=== PATIENT | female | born 1955 | race Caucasian/White ===

== ENCOUNTER 2021-05-26 10:03 | Inpatient (IN) | payer OTHER, SELFPAY ==
[2021-05-26] VITALS (14 sets, daily range): BP systolic 108–168; BP diastolic 47–76; PULSE 80–93; RESP 14–20; TEMP 36.5–37.2; O2SAT 96–100; BMI 34.9
--- NOTE | ~2021-05-26 | US_ITS ---
EXAMINATION: US paracentesis abd w/image DATE: 05/28/2021 13:49 INDICATION: Ascites. TECHNIQUE: The procedure and its risks and benefits were discussed with the patient. Potential risks discussed included bleeding and infection. The skin was prepped and draped in sterile fashion. 1% lid ocaine was used for local anesthesia. Under ultrasound guidance, a 5 Fr catheter with trochar was adv anced into the ascites in the left lower quadrant. Fluid was aspirated into vacuum bottles. The gaudencio ter was removed, and a dressing was applied. There were no immediate complications. FINDINGS: Ultrasound images demonstrate ascites and the catheter within the fluid. IMPRESSION: 1. Successful ultrasound-guided paracentesis yielding 4250 mL of clear yellow fluid. Reviewed, dictated and finalized at location A. D PROTECTIVE SERVICES SOCIAL WORKER
--- NOTE | ~2021-05-26 | US_ITS ---
EXAMINATION: US renal BI DATE: 05/27/2021 08:30 INDICATION: Renal insufficiency. TECHNIQUE: Multiple ultrasound grayscale images of the kidneys were obtained. COMPARISON: None. FINDINGS: The right kidney measures 12.2 x 5.6 x 5.9 cm. The left kidney measures 12.4 x 5.1 x 5.2 cm. The kidn eys demonstrate normal parenchymal echogenicity. There is no hydronephrosis. The bladder is normal. T he liver demonstrates a nodular surface contour, consistent with cirrhosis. There is a large volume o f ascites. IMPRESSION: 1. Normal kidney sizes. No hydronephrosis. 2. Cirrhosis of the liver. 3. Large volume of ascites. Reviewed, dictated and finalized at location B. RATORY SPECIALIST
--- NOTE | ~2021-05-26 | CT_ITS ---
EXAMINATION: CT abdomen w con DATE: 05/27/2021 13:27 INDICATION: Cirrhosis of the liver. TECHNIQUE: Computed tomography (CT) of the abdomen was performed with 100 mL Omnipaque 350 intravenou s contrast. Automated exposure control and iterative reconstruction technique were employed. The dose -length product was 774.81 mGy-cm. COMPARISON: Ultrasound kidneys 05/27/2021 FINDINGS: The visualized portions of the lung bases demonstrate minimal atelectasis. No pleural effus ion. The heart size is normal. There are coronary artery calcifications. No pericardial effusion. The re is a small sliding hiatal hernia. The liver demonstrates a nodular surface contour, consistent wit h cirrhosis. There are changes of cholecystectomy. There is splenomegaly measuring 18.5 cm. The pancr eas and adrenal glands are normal. There is cortical thinning of the kidneys. There are cysts in the kidneys measuring up to 3.2 cm on the right. There is a 3 mm stone in left kidney. There are no dilat ed loops of bowel. The appendix is normal. There is a large volume of ascites. There is mild periport al lymphadenopathy, likely reactive. There is mild thoracolumbar spondylosis. IMPRESSION: 1. Cirrhosis of the liver with portal venous hypertension. 2. Large volume of ascites. 3. Small sliding hiatal hernia. Reviewed, dictated and finalized at location D. OGRAPH OPERATOR
--- NOTE | 2021-05-26 10:18 | ED.GIBLEED ---
HPI - GI Bleed General Chief complaint: GI Bleed Stated complaint: dark stools, abnormal labs Time Seen by Provider: 05/26/21 10:13 Source: patient Mode of arrival: ambulatory Limitations: no limitations History of Present Illness HPI Narrative: Patient is a 66-year-old female complaining of dark tarry stools for the past 3 weeks, accompanied by lower abdominal discomfort, was seen by her PCP yesterday, had labs drawn and today she was informed by to go to the emergency room since her hemoglobin was 6 . Related Data Home Medications Medication Instructions Recorded Confirmed aspirin 81 mg tablet,delayed 81 mg PO DAILY 04/01/21 04/01/21 release atorvastatin 40 mg tablet 40 mg PO DAILY 04/01/21 04/01/21 losartan 100 mg tablet 100 mg PO DAILY 04/01/21 04/01/21 metformin 1,000 mg tablet 1,000 mg PO BID 04/01/21 04/01/21 montelukast 10 mg tablet 10 mg PO QHS 04/01/21 04/01/21 Allergies Allergy/AdvReac Type Severity Reaction Status Date / Time No Known Allergies Allergy Verified 05/25/21 15:32 Review of Systems Review of Systems: All systems reviewed & are unremarkable except as noted in HPI and below Constitutional: Constitutional: Denies body ache(s), Denies chills, Denies excessive sweating, Denies fatigue, Denies fever(s), Denies headache(s), Denies lethargy, Denies malaise, Denies weakness and Denies weight loss Eyes: Eyes: Denies blurry vision, Denies change in vision and Denies loss of vision ENT: Denies dizziness, Denies ear discharge, Denies headache(s), Denies lip swelling, Denies epistaxis, Denies nasal congestion, Denies neck pain, Denies throat swelling and Denies tongue swelling Cardiovascular: Cardiovascular: Denies chest pain, Denies chest pain at rest, Denies chest pain with activity, Denies diaphoresis, Denies rapid heart rate, Denies edema, Denies irregular heart rhythm, Denies lightheadedness, Denies palpitations, Denies dyspnea and Denies dyspnea on exertion Respiratory: Respiratory: Denies chest congestion, Denies cough, Denies hemoptysis, Denies dyspnea and Denies dyspnea on exertion Gastrointestinal: Gastrointestinal: Denies diarrhea, Denies nausea, Denies vomiting and Denies hematemesis Musculoskeletal: Musculoskeletal: Denies abnormal gait, Denies deformity, Denies joint swelling, Denies limited range of motion, Denies neck pain and Denies numbness Neurologic: Denies Abnormal speech present, Denies abnormal gait, Denies confusion, Denies dizziness, Denies headache(s), Denies focal weakness, Denies loss of vision, Denies numbness, Denies Other visual disturbances, Denies Sensory deficit (Neuro) and Denies weakness Psychiatric: Psychiatric: Denies confusion, Denies depression, Denies auditory hallucinations, Denies homicidal ideation and Denies suicidal ideation Endocrine: Endocrine: Denies cold intolerance, Denies excessive sweating, Denies fatigue, Denies heat intolerance and Denies palpitations Hematologic/Lymphatic: Hematologic/Lymphatic: Denies easy bleeding and Denies easy bruising Allergic/Immunologic: Allergic/Immunologic: Denies lip swelling, Denies throat swelling and Denies tongue swelling PMFSH Past Medical History Medical History Allergies Arthritis CAD (coronary artery disease) delivery delivered COPD (chronic obstructive pulmonary disease) Hypertension [place] (myocardial infarction) Osteoarthritis Type 2 diabetes mellitus Surgical History Surgical History H/O: hysterectomy History of carpal tunnel release History of cholecystectomy Family History Family History Father Hypertension Mother Cancer Hypertension Heart disease Sibling Hypertension Heart disease Grandparent Heart disease Social History Social History Smoking status: Former
[2021-05-26 10:34] LABS: Basophils Absolute Auto 0.1 K/mm3 (0.0-0.1); Eosinophils Absolute Auto 0.2 K/mm3 (0-0.3); Eosinophils Percent Auto 3.5 % (0-4.4); Hematocrit 23.6 % (37.0-47.0); Immature Granulocyte Absolute 0.01 K/mm3 (0.00-0.031); Immature Granulocyte Percent A 0.2 % (0-0.5); Immature Platelet Fraction Pct 9.3 % (0.9-11.2); Lymphocytes Absolute Auto 0.75 K/mm3 (0.9-3.2); Lymphocytes Percent Auto 12.5 % (18.3-44.2); Mean Corpuscular HGB Conc 25.4 g/dl (32-36); Mean Corpuscular Hemoglobin 19.4 pg (26-34); Mean Corpuscular Volume 76.4 fl (80-100); Monocytes Absolute Auto 0.6 K/mm3 (0.1-0.6); Monocytes Percent Auto 10.4 % (2.6-8.5); Neutrophils Absolute Auto 4.3 K/mm3 (1.3-6.7); Neutrophils Percent Auto 72.4 % (45.5-73.1); Platelet Count Result 157 k/mm3 (150-375); Red Blood Count 3.09 M/mm3 (4.2-5.4); Red Cell Distribution Width 19.1 % (11.5-14.5)
[2021-05-26] MEDS: PANTOPRAZOLE SODIUM IV 40 MG VIAL 80 MG IV PUSH (10:34)
[2021-05-26] MEDS: LACTATED RINGERS 1,000 ML 999 ML IV CONT (10:34)
[2021-05-26 10:41] LABS: INR 1.1; Prothrombin Time 14.4 Seconds (11.1-14.7)
[2021-05-26 10:42] LABS: Partial Thromboplastin Time 37.2 SECONDS (22.3-36.8)
[2021-05-26 10:47] LABS: Alanine Aminotransferase 22 U/L (4-35); Albumin Level 3.6 g/dL (3.5-5.1); Alkaline Phosphatase 88 U/L (38-126); Anion Gap 11 mmol/L (8-16); Aspartate Amino Transferase 42 U/L (14-36); Bilirubin,Total 1.1 mg/dL (0.2-1.3); Blood Urea Nitrogen 19 mg/dL (7-17); Calcium 8.8 mg/dL (8.4-10.2); Carbon Dioxide 20 mmol/L (22-30); Chloride 107 mmol/L (98-107); Estimated CRCL calculation 50 ml/min; Estimated Glomerular Filt Rate 50; Glucose 187 mg/dL (65-110); Potassium 4.5 mmol/L (3.4-5.0); Sodium 138 mmol/L (137-145)
[2021-05-26 10:53] LABS: Hypochromasia 2+ (NORMAL); Ovalocytes 2+ (NORMAL); Platelet Estimate Adequate (Adequate); Stomatocytes 2+ (NORMAL); Tear Drop Cells 2+ (NORMAL)
[2021-05-26] MEDS: SODIUM CHLORIDE 0.9% IV 250 ML 30 ML IV CONT ×2 (12:16→17:44)
[2021-05-26] MEDS: TUBING, BLOOD PLUM PUMP TUBING 1 EACH XX ×2 (13:05→17:40)
--- NOTE | 2021-05-26 14:50 | PM.IMHP ---
H&P: HPI History of Present Illness Date/Time: 05/26/21 14:50 Chief Complaint: Low hemoglobin. Narrative: This is a 66-year-old female with GERD, COPD, coronary artery disease, hypertension, hyperlipidemia, and insulin-dependent diabetes who presented to the emergency department earlier today at the direction of her primary care provider after she was found to have a low hemoglobin on labs drawn yesterday. She was seen by her primary care provider yesterday for evaluation of abdominal bloating, epigastric discomfort, belching, and dark tarry stools that has been going on for at least 3 weeks. In the emergency department she was found to have a hemoglobin and hematocrit of 6.0 in 23.6% respectively and her stool was Hemoccult positive. She has never had similar symptoms and she denies history of gastritis, esophagitis, reflux, and ulcers although she is on pantoprazole daily. She had been on dual anti-platelet therapy for approximately 6 years following PCI with stent although clopidogrel was recently stopped at her last office visit in March. If she needs to take anything for aches or pains it is typically Tylenol, she avoids NSAIDs. She denies syncope, near syncope, shortness of breath, weakness, and palpitations. Review of Systems Review of Systems: Twelve systems were reviewed and are negative except for as per HPI. [facility] Past Medical History Medical History (Updated 05/26/21 @ 23:35 by Jo Estrella PA-C) Allergies Arthritis Chronic obstructive pulmonary disease Coronary artery disease Dyslipidemia Hypertension Insulin dependent type 2 diabetes mellitus Hemoglobin A1c was 7.2% on 04/01/2021. Osteoarthritis Surgical History Surgical History (Updated 05/26/21 @ 15:01 by Jo Estrella PA-C) History of cardiac catheterization Status post PCI and stent. History of carpal tunnel release History of section History of cholecystectomy History of hysterectomy Family History Family History Father Hypertension Mother Cancer Hypertension Heart disease Sibling Hypertension Heart disease Grandparent Heart disease Social History Social History (Updated 05/26/21 @ 15:02 by Jo Estrella PA-C) Social History: Surrogate decision maker: Raman Ramesh (son) or Latha Javier (daughter). Code status: Full code. Smoking packs per day: 1 Smoking cigarettes per day: 20.0 Years smoked: 40 Smoking pack-years: 40.00 Smoking status: Former smoker Tobacco type: cigarettes Second hand tobacco smoke exposure: Yes Smoking end date: 05/26/05 Alcohol intake: former Alcohol use details: Drinks perhaps a couple of glasses of wine a month. Substance use: never Additional living arrangements comments: The patient lives in [place]. Additional occupation/education comments: Retired. Spiritual care concerns: No Meds Home Medications and Allergies Home Medications Medication Instructions Recorded Confirmed Type aspirin 81 mg tablet,delayed 81 mg PO DAILY 04/01/21 05/26/21 History release atorvastatin 40 mg tablet 40 mg PO DAILY 04/01/21 05/26/21 History losartan 100 mg tablet 100 mg PO DAILY 04/01/21 05/26/21 History metformin 1,000 mg tablet 1,000 mg PO BID 04/01/21 05/26/21 History montelukast 10 mg tablet 10 mg PO QHS 04/01/21 05/26/21 History insulin NPH isoph U-100 human 100 See Rx Instructions SUBCUT BID #15 04/02/21 05/26/21 Rx unit/mL (3 mL) subcutaneous pen ml oxybutynin chloride 10 mg 10 mg PO DAILY #90 tablet 04/02/21 05/26/21 Rx tablet,extended release 24 hr metoprolol succinate 25 mg 25 mg PO DAILY #90 tablet 04/20/21 05/26/21 Rx tablet,extended release 24 hr pen needle, diabetic 29 gauge x #100 ea 04/20/21 Rx 1/2 fluticasone 250 mcg-salmeterol 50 1 inh INHALATION BID #60 ea 05/25/21 05/26/21 Rx mcg/dose blistr powdr for inhalation pantoprazole 40 mg tablet,delayed
--- NOTE | 2021-05-26 17:25 | PC.NURSE ---
This patient, Ammy Ramesh, was admitted to [facility] Surg Room 330-01 at 1700. Patient/family oriented to hospital policies and general routines including ID bracelet, bed and alarms, visiting hours, pain management, procedures, bathroom and other care routines, personal items, smoking policy, room service/diet, and visiting hours. Information on how to activate the Rapid Response Team has been discussed. Patient/Family are encouraged to report perceived risks to care and to ask questions if they do not understand what they are told or what they should do.
[2021-05-26] MEDS: LACTATED RINGERS 1,000 ML 125 ML IV CONT (21:00)
[2021-05-26] MEDS: PANTOPRAZOLE SODIUM IV 40 MG VIAL IV PUSH (21:04)
[2021-05-26 21:43] LABS: Glucose Point of Care 145 mg/dl (65-105)
[2021-05-26 22:02] LABS: Hemoglobin 6.9 g/dL (12.0-15.0)
[2021-05-26 22:03] LABS: Hematocrit 24.6 % (37.0-47.0)
[2021-05-27] VITALS (26 sets, daily range): BP systolic 134–170; BP diastolic 58–83; PULSE 78–98; RESP 17–29; TEMP 35.9–37.8; O2SAT 96–100
[2021-05-27 01:10] LABS: Glucose Point of Care 105 mg/dl (65-105)
[2021-05-27] MEDS: METOPROLOL SUCCINATE EXT REL 25 MG TABCR PO ×2 (04:46→21:30)
[2021-05-27] MEDS: MONTELUKAST SODIUM 10 MG TABLET PO ×2 (04:56→21:31)
[2021-05-27 07:39] LABS: Basophils Percent Auto 0.9 % (0.2-1.2); Eosinophils Absolute Auto 0.2 K/mm3 (0-0.3); Eosinophils Percent Auto 3.7 % (0-4.4); Hematocrit 28.7 % (37.0-47.0); Hemoglobin 8.5 g/dL (12.0-15.0); Immature Granulocyte Absolute 0.01 K/mm3 (0.00-0.031); Immature Granulocyte Percent A 0.2 % (0-0.5); Immature Platelet Fraction Pct 8.8 % (0.9-11.2); Lymphocytes Absolute Auto 0.69 K/mm3 (0.9-3.2); Lymphocytes Percent Auto 14.9 % (18.3-44.2); Mean Corpuscular HGB Conc 29.6 g/dl (32-36); Mean Corpuscular Hemoglobin 23.7 pg (26-34); Mean Corpuscular Volume 79.9 fl (80-100); Mean Platelet Volume 11.9 fl (7.4-10.4); Monocytes Absolute Auto 0.5 K/mm3 (0.1-0.6); Monocytes Percent Auto 11.7 % (2.6-8.5); Neutrophils Absolute Auto 3.2 K/mm3 (1.3-6.7); Neutrophils Percent Auto 68.6 % (45.5-73.1); Platelet Count Result 103 k/mm3 (150-375); Red Blood Count 3.59 M/mm3 (4.2-5.4); Red Cell Distribution Width 20.1 % (11.5-14.5); White Blood Count 4.6 K/mm3 (4.5-10.0)
[2021-05-27 07:51] LABS: Alanine Aminotransferase 19 U/L (4-35); Albumin Level 3.1 g/dL (3.5-5.1); Alkaline Phosphatase 75 U/L (38-126); Anion Gap 8 mmol/L (8-16); Aspartate Amino Transferase 32 U/L (14-36); Bilirubin,Total 2.7 mg/dL (0.2-1.3); Blood Urea Nitrogen 16 mg/dL (7-17); Calcium 8.4 mg/dL (8.4-10.2); Carbon Dioxide 22 mmol/L (22-30); Chloride 107 mmol/L (98-107); Estimated CRCL calculation 55 ml/min; Estimated Glomerular Filt Rate 56; Glucose 116 mg/dL (65-110); Magnesium 1.1 mg/dL (1.6-2.3); Potassium 3.9 mmol/L (3.4-5.0); Sodium 137 mmol/L (137-145)
[2021-05-27 08:38] LABS: Hypochromasia 1+ (NORMAL)
[2021-05-27 08:39] LABS: Anisocytosis 2+ (NORMAL); Ovalocytes 1+ (NORMAL)
[2021-05-27 08:41] LABS: Stomatocytes 1+ (NORMAL)
[2021-05-27] MEDS: PANTOPRAZOLE SODIUM IV 40 MG VIAL IV PUSH (08:45)
--- NOTE | 2021-05-27 10:36 | PM.IMPN ---
Progress Note: A&P Assessment and Plan (1) GI bleed: Code(s): K92.2 - Gastrointestinal hemorrhage, unspecified Status: Acute Assessment and Plan: Presumed upper GI bleed given her symptoms and melena. She has been started on Protonix [address] Davis has been consulted. Endoscopic scheduled for today. (2) Profound anemia: Code(s): D64.9 - Anemia, unspecified Status: Acute Assessment and Plan: Transfuse to a stable hemoglobin. Hold aspirin. (3) Coronary artery disease: Code(s): I25.10 - Atherosclerotic heart disease of [place] coronary artery without angina pectoris Status: Acute Assessment and Plan: No acute issues. She had stents placed approximately 6 years ago and was recently taken off of Plavix. (4) Hypertension: Qualifiers: Hypertension type: primary hypertension Qualified Code(s): I10 - Essential (primary) hypertension Code(s): I10 - Essential (primary) hypertension Status: Acute Assessment and Plan: Blood pressures were reviewed and they are stable. Antihypertensives will be reviewed and resumed as appropriate. (5) Insulin dependent type 2 diabetes mellitus: Code(s): E11.9 - Type 2 diabetes mellitus without complications; Z79.4 - intermediate teacher (current) use of insulin Status: Acute Assessment and Plan: Hold insulin tonight in anticipation of endoscopy tomorrow. Initiate sliding scale insulin, Accu-Cheks, and hypoglycemic protocol. (6) Renal insufficiency: Code(s): N28.9 - Disorder of kidney and ureter, unspecified Status: Acute Assessment and Plan: I suspect this is likely due to hypovolemia from her severe anemia though she has risk factors for kidney disease thus will obtain a renal ultrasound. Avoid nephrotoxic agents. Subjective Date/time seen: 05/27/21 10:36 Patient was seen during the morning rounds today. Patient received blood and hemoglobin stable. Denies any shortness of breath or chest pain. No abdominal pain, nausea, no vomiting. Mood stable Review of Systems Review of Systems: All systems reviewed & are unremarkable except as noted in HPI and below (the history and physical examination.) Exam Narrative: General: Well-developed female lying on her left side in bed in no distress. Weight: 80.3 kg. BMI: 34.9. HEENT: PERRL, EOMI. Sclerae anicteric. Oral mucosa moist. Oropharynx clear. Neck: Supple. Respiratory: Lungs are clear to auscultation bilaterally. Cardiovascular: Regular rate and rhythm with S1-S2. No murmur, rub, or gallop. Gastrointestinal: Abdomen is distended with positive bowel sounds. She is somewhat tender to palpation throughout the abdomen. No voluntary guarding or rebound tenderness. Skin: Warm and dry. Generalized pallor. Extremities: No cyanosis, clubbing, or edema. Radial and pedal pulses intact. Neurological: Alert. Cranial nerves 2-12 are grossly intact. No gross focal deficits to casual conversation. Psychiatric: Pleasant and cooperative with normal mood and affect. Judgment and insight intact. Objective Data Vital Signs Vital Signs: Vital Signs - 24 hr 05/26/21 12:27 05/26/21 12:44 05/26/21 13:44 Temperature 36.7 C 36.7 C 36.6 C Pulse Rate 87 83 88 Respiratory Rate 17 14 16 Blood Pressure 133/71 123/76 118/66 Pulse Oximetry 100 99 100 05/26/21 14:19 05/26/21 14:44 05/26/21 16:49 Temperature 36.5 C Pulse Rate 85 89 80 Respiratory Rate 14 18 16 Blood Pressure 139/64 123/61 136/66 Pulse Oximetry 99 98 99 05/26/21 17:30 05/26/21 17:51 05/26/21 18:08 Temperature 36.7 C 36.6 C 36.5 C Pulse Rate 87 93 92 Respiratory Rate 20 20 20 Blood Pressure 144/64 H 123/57 L 141/62 H Pulse Oximetry 99 99 98 05/26/21 19:08 05/26/21 20:08 05/26/21 20:30 Temperature 36.6 C 37.2 C 37.0 C Pulse Rate 88 86 82 Respiratory Rate 20 20 20 Blood Pressure 130/61 109/47 L 108/47 L Pulse Oximetry 98 97 96
--- NOTE | 2021-05-27 10:57 | WPDANESEPPF ---
Anes - Initial Pre Proc Eval Procedure: Operation Date: 05/27/21 13:30 Proposed Procedures p Esophagogastroduodenoscopy - Emile Davis MD Date/Time: 05/27/21 10:57 Surgeon: Hans Jo MD Pre Op Diagnosis: Upper GI bleed Patient Data Age: 66 Gender: F Height: 1.63 m Weight: 92.2 kg Last Vital Signs Temp 37.3 C 05/27/21 07:30 Pulse 79 05/27/21 07:30 Resp 18 05/27/21 07:30 BP 157/72 H 05/27/21 07:30 Pulse Ox 97 05/27/21 07:30 Allergies Allergy/AdvReac Type Severity Reaction Status Date / Time No Known Allergies Allergy Verified 05/25/21 15:32 Home Medications Medication Instructions Recorded Confirmed Type aspirin 81 mg tablet,delayed 81 mg PO DAILY 04/01/21 05/26/21 History release atorvastatin 40 mg tablet 40 mg PO DAILY 04/01/21 05/26/21 History losartan 100 mg tablet 100 mg PO DAILY 04/01/21 05/26/21 History metformin 1,000 mg tablet 1,000 mg PO BID 04/01/21 05/26/21 History montelukast 10 mg tablet 10 mg PO QHS 04/01/21 05/26/21 History insulin NPH isoph U-100 human 100 See Rx Instructions SUBCUT BID #15 04/02/21 05/26/21 Rx unit/mL (3 mL) subcutaneous pen ml oxybutynin chloride 10 mg 10 mg PO DAILY #90 tablet 04/02/21 05/26/21 Rx tablet,extended release 24 hr metoprolol succinate 25 mg 25 mg PO DAILY #90 tablet 04/20/21 05/26/21 Rx tablet,extended release 24 hr pen needle, diabetic 29 gauge x #100 ea 04/20/21 Rx 1/2 fluticasone 250 mcg-salmeterol 50 1 inh INHALATION BID #60 ea 05/25/21 05/26/21 Rx mcg/dose blistr powdr for inhalation pantoprazole 40 mg tablet,delayed 40 mg PO QAM #30 tablet 05/25/21 05/26/21 Rx release zolpidem 10 mg tablet 10 mg PO .COMPLEX PRN #15 tablet 05/25/21 05/26/21 Rx Laboratory Tests 05/26/21 05/26/21 05/26/21 10:23 18:09 21:31 WBC RBC Hgb 6.9 g/dL L* g/dL (12.0-15.0) Hct 24.6 % L % (37.0-47.0) MCV MCH MCHC RDW Plt Count MPV Immature Gran % (Auto) Neut % (Auto) Lymph % (Auto) [place] % (Auto) Eos % (Auto) Baso % (Auto) Lymph # (Auto) [place] # (Auto) Eos # (Auto) Baso # (Auto) Abs Immat Gran (auto) Absolute Neuts (auto) Absolute Nucleated RBC Nucleated RBC % Platelet Estimate % Immature Plt Fraction Hypochromasia Anisocytosis Ovalocytes Stomatocytes Sodium Potassium Chloride Carbon Dioxide Anion Gap BUN Creatinine Estim Creat Clear Calc Estimated GFR Glucose POC Capillary Glucose 145 mg/dl H mg/dl (65-105) Calcium Magnesium Total Bilirubin AST ALT Alkaline Phosphatase Total Protein Albumin Blood Type A Positive Antibody Screen Negative Crossmatch See Detail 05/27/21 05/27/21 05/27/21 00:58 07:10 07:10 WBC 4.6 K/mm3 K/mm3 (4.5-10.0) RBC 3.59 M/mm3 L M/mm3 (4.2-5.4) Hgb 8.5 g/dL L g/dL (12.0-15.0) Hct 28.7 % L % (37.0-47.0) MCV 79.9 fl L fl (80-100) MCH 23.7 pg L D pg (26-34) MCHC 29.6 g/dl L g/dl (32-36) RDW 20.1 % H % (11.5-14.5) Plt Count 103 k/mm3 L k/mm3 (150-375) MPV 11.9 fl H fl (7.4-10.4) Immature Gran % (Auto) 0.2 % % (0-0.5) Neut % (Auto) 68.6 % % (45.5-73.1) Lymph % (Auto) 14.9 % L % (18.3-44.2) [place] % (Auto) 11.7 % H % (2.6-8.5) Eos % (Auto) 3.7 % % (0-4.4) Baso % (Auto) 0.9 % %
[2021-05-27] MEDS: LACTATED RINGERS 1,000 ML 150 ML IV CONT (10:58)
[2021-05-27 11:03] LABS: Glucose Point of Care 113 mg/dl (65-105)
--- NOTE | 2021-05-27 11:41 | PCRCNOTE ---
Window of time for administration has passed. See next scheduled administration.
--- NOTE | 2021-05-27 11:42 | WPDGICN ---
Assessment and Plan Assessment and plan (1) Epigastric abdominal pain: Code(s): R10.13 - Epigastric pain Status: Acute Assessment and Plan: Patient with several week history of epigastric pain. This along with occult blood in stool and anemia suggest upper GI blood loss. Plan is for EGD today. Ppi therapy will be implemented. (2) Melena: Code(s): K92.1 - Melena Status: Acute Assessment and Plan: Patient found to have heme-positive dark melenic stool. Suggestive of upper GI blood loss. He had EGD will be planned initially. Colonoscopy only if no findings on EGD. (3) Insulin dependent type 2 diabetes mellitus: Code(s): E11.9 - Type 2 diabetes mellitus without complications; Z79.4 - intermediate (current) use of insulin Status: Acute (4) Profound anemia: Code(s): D64.9 - Anemia, unspecified Status: Acute Assessment and Plan: Significant anemia with a hemoglobin 6-6.5. Suggestive of GI blood loss anemia given her black melenic stools that is occult blood positive. Ppi therapy for now. Transfuse to a stable hemoglobin. Monitor hemoglobin till stable. GI Consult Note Consult date/time: 05/27/21 11:42 HPI: Ammy Ramesh is a 66 year old female Presents to the ER because of anemia. Patient initially had vague abdominal pain. She has noticed black stools for 3 weeks. Yesterday presented to primary care office and CBC was obtained. She was found to have rather profound anemia and sent to the ER. In ER hemoglobin was noted to be significantly decline. In the range of 6-6 and half. Patient states she has rather vague upper abdominal discomfort. This been present for at least several weeks and dark melenic stools noted for several weeks as well. I have been consulted for possible GI blood loss. Review of Systems Review of Systems: All systems reviewed & are unremarkable except as noted in HPI and below PMFSH Past Medical History Medical History (Updated 05/27/21 @ 11:44 by Emile Davis MD) Allergies Arthritis Chronic obstructive pulmonary disease Coronary artery disease Dyslipidemia Hypertension Insulin dependent type 2 diabetes mellitus Hemoglobin A1c was 7.2% on 04/01/2021. Osteoarthritis Surgical History Surgical History (Updated 05/26/21 @ 15:01 by Jo G. Gerling, PA-C) History of cardiac catheterization Status post PCI and stent. History of carpal tunnel release History of section History of cholecystectomy History of hysterectomy Family History Family History Father Hypertension Mother Cancer Hypertension Heart disease Sibling Hypertension Heart disease Grandparent Heart disease Social History Social History (Updated 05/26/21 @ 15:02 by Jo Estrella PA-C) Social History: Surrogate decision maker: Raman Leonradha (son) or Latha Javier (daughter). Code status: Full code. Smoking packs per day: 1 Smoking cigarettes per day: 20.0 Years smoked: 40 Smoking pack-years: 40.00 Smoking status: Former smoker Tobacco type: cigarettes Second hand tobacco smoke exposure: Yes Smoking end date: 05/26/05 Alcohol intake: former Alcohol use details: Drinks perhaps a couple of glasses of wine a month. Substance use: never Additional living arrangements comments: The patient lives in [place]. Additional occupation/education comments: Retired. Spiritual care concerns: No Meds Home Medications and Allergies Home Medications Medication Instructions Recorded Confirmed Type aspirin 81 mg tablet,delayed 81 mg PO DAILY 04/01/21 05/26/21 History release atorvastatin 40 mg tablet 40 mg PO DAILY 04/01/21 05/26/21 History losartan 100 mg tablet 100 mg PO DAILY 04/01/21 05/26/21 History metformin 1,000 mg tablet 1,000 mg PO BID 04/01/21 05/26/21 History montelukast 10 mg tablet 10 mg PO QHS 04/01/21
[2021-05-27 13:15] LABS: Glucose Point of Care 108 mg/dl (65-105)
[2021-05-27] MEDS: ATORVASTATIN 40 MG TABLET PO (13:37)
[2021-05-27] MEDS: ACETAMINOPHEN 325 MG TABLET 650 MG PO ×2 (14:45→21:34)
[2021-05-27 15:31] LABS: Bilirubin Indirect 3.3 mg/dL (0-1.1); Bilirubin,Total 3.6 mg/dL (0.2-1.3)
[2021-05-27 17:43] LABS: Glucose Point of Care 115 mg/dl (65-105)
[2021-05-27] MEDS: SPIRONOLACTONE 25 MG TABLET PO (19:26)
[2021-05-27] MEDS: PANTOPRAZOLE 40 MG TABLET PO (21:31)
[2021-05-27] MEDS: PROPRANOLOL HCL 20 MG TABLET PO (21:32)
[2021-05-27] MEDS: FLUTICASONE/SALMETEROL 115-21 MCG INHALER 1 PUFF 2 PUFF INHALATION (22:05)
[2021-05-28 06:00] VITALS: BP 151/71; PULSE 82; RESP 20; TEMP 36.6; O2SAT 99
--- NOTE | 2021-05-28 08:08 | WPDANESPN ---
Anes - Prog Note Post-Op Date/Time: 05/28/21 08:08 Cardiovascular status: normal Respiratory status: normal Airway patency: baseline Mental status: baseline Post-Op hydration status: normal Vital Signs: Last Vital Signs Temp 97.8 F 05/28/21 06:00 Pulse 82 05/28/21 06:00 Resp 20 05/28/21 06:00 BP 151/71 H 05/28/21 06:00 Pulse Ox 99 05/28/21 06:00 Pain Score (VAS): 06/08 I/O: Intake & Output 05/27/21 05/28/21 05/28/21 23:59 07:59 15:59 Intake Total 540 400 Output Total 900 Balance -360 400 Laboratory Tests 05/27/21 07:10 05/27/21 07:10 05/27/21 05/27/21 05/27/21 07:10 11:01 13:13 WBC 4.6 RBC 3.59 L Hgb 8.5 L Hct 28.7 L MCV 79.9 L MCH 23.7 L D MCHC 29.6 L RDW 20.1 H Plt Count 103 L MPV 11.9 H Immature Gran % (Auto) 0.2 Neut % (Auto) 68.6 Lymph % (Auto) 14.9 L [facility] % (Auto) 11.7 H Eos % (Auto) 3.7 Baso % (Auto) 0.9 Lymph # (Auto) 0.69 L [facility] # (Auto) 0.5 Eos # (Auto) 0.2 Baso # (Auto) 0.0 Abs Immat Gran (auto) 0.01 Absolute Neuts (auto) 3.2 Absolute Nucleated RBC 0.0 Nucleated RBC % 0.0 Platelet Estimate Slightly decreased % Immature Plt Fraction 8.8 Hypochromasia 1+ Anisocytosis 2+ Ovalocytes 1+ Stomatocytes 1+ POC Capillary Glucose 113 H 108 H Total Bilirubin Direct Bilirubin Indirect Bilirubin Alpha Fetoprotein 05/27/21 05/27/21 05/27/21 14:57 14:57 17:17 WBC RBC Hgb Hct MCV MCH MCHC RDW Plt Count MPV Immature Gran % (Auto) Neut % (Auto) Lymph % (Auto) [facility] % (Auto) Eos % (Auto) Baso % (Auto) Lymph # (Auto) [facility] # (Auto) Eos # (Auto) Baso # (Auto) Abs Immat Gran (auto) Absolute Neuts (auto) Absolute Nucleated RBC Nucleated RBC % Platelet Estimate % Immature Plt Fraction Hypochromasia Anisocytosis Ovalocytes Stomatocytes POC Capillary Glucose 115 H Total Bilirubin 3.6 H Direct Bilirubin 0.0 Indirect Bilirubin 3.3 H Alpha Fetoprotein Pending Patient Feedback: Patient satisfied with anesthetic care.
[2021-05-28 08:11] LABS: Glucose Point of Care 140 mg/dl (65-105)
--- NOTE | 2021-05-28 08:38 | PM.DS ---
DS: Admitting Diagnosis Discharge Date 05/28/2021 Admitting Diagnosis Anemia History of liver cirrhosis DS: Discharge Diagnosis Discharge Diagnosis (1) GI bleed: Code(s): K92.2 - Gastrointestinal hemorrhage, unspecified Status: Acute Assessment and Plan: Presumed upper GI bleed given her symptoms and melena. She has been started on Protonix [address] Davis has been consulted. Endoscopic scheduled for today. (2) Profound anemia: Code(s): D64.9 - Anemia, unspecified Status: Acute Assessment and Plan: Transfuse to a stable hemoglobin. Hold aspirin. (3) Coronary artery disease: Code(s): I25.10 - Atherosclerotic heart disease of [place] coronary artery without angina pectoris Status: Acute Assessment and Plan: No acute issues. She had stents placed approximately 6 years ago and was recently taken off of Plavix. (4) Hypertension: Qualifiers: Hypertension type: primary hypertension Qualified Code(s): I10 - Essential (primary) hypertension Code(s): I10 - Essential (primary) hypertension Status: Acute Assessment and Plan: Blood pressures were reviewed and they are stable. Antihypertensives will be reviewed and resumed as appropriate. 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 Initiate sliding scale insulin, Accu-Cheks, and hypoglycemic protocol. (6) Renal insufficiency: Code(s): N28.9 - Disorder of kidney and ureter, unspecified Status: Acute Assessment and Plan: I suspect this is likely due to hypovolemia from her severe anemia though she has risk factors for kidney disease thus will obtain a renal ultrasound. Avoid nephrotoxic agents. DS: Summary Hospital Course Reason for hospitalization: Anemia Hospital Course: Patient is 63 years old female was admitted complains of having generalized weakness and possible GI bleed. Patient hemoglobin was very low patient was given 4 units of blood. Endoscope was performed that showed a known bleeding esophageal varices banding was done. Today patient is feeling better there is no acute bleeding hemoglobin is stable.Patient was discharged home stable condition. Patient advised to follow with primary care physician and GI specialist outpatient next week Status at Discharge Cognitive/behavioral status at discharge: Stable Functional status at discharge: independent ambulation Overall status at discharge: patient is back to baseline Time Spent with Patient Time attestation: Total time spent providing and/or coordinating discharge services: Time spent: Less than 30 minutes Exam Narrative: General: Well-developed female lying on her left side in bed in no distress. Weight: 80.3 kg. BMI: 34.9. HEENT: PERRL, EOMI. Sclerae anicteric. Oral mucosa moist. Oropharynx clear. Neck: Supple. Respiratory: Lungs are clear to auscultation bilaterally. Cardiovascular: Regular rate and rhythm with S1-S2. No murmur, rub, or gallop. Gastrointestinal: Abdomen is distended with positive bowel sounds. She is somewhat tender to palpation throughout the abdomen. No voluntary guarding or rebound tenderness. Skin: Warm and dry. Generalized pallor. Extremities: No cyanosis, clubbing, or edema. Radial and pedal pulses intact. Neurological: Alert. Cranial nerves 2-12 are grossly intact. No gross focal deficits to casual conversation. Psychiatric: Pleasant and cooperative with normal mood and affect. Judgment and insight intact. DS: Data Data Completed and Pending Labs on day of discharge: Labs from last 24 hours 05/28/21 05/28/21 05/27/21 08:07 07:55 17:17 WBC Pending RBC Pending Hgb Pending Hct Pending MCV Pending MCH
[2021-05-28 08:42] VITALS: PULSE 82
[2021-05-28] MEDS: ATORVASTATIN 40 MG TABLET PO (08:42)
[2021-05-28] MEDS: PANTOPRAZOLE 40 MG TABLET PO ×2 (08:42→22:19)
[2021-05-28] MEDS: PROPRANOLOL HCL 20 MG TABLET PO ×2 (08:42→22:19)
[2021-05-28] MEDS: SPIRONOLACTONE 25 MG TABLET PO (08:42)
[2021-05-28] MEDS: THERAPEUTIC MULTIVITAMINS/MINERALS TAB (*BKC) 1 TABLET PO (08:42)
[2021-05-28 08:46] LABS: Hematocrit 33.7 % (37.0-47.0); Hemoglobin 9.8 g/dL (12.0-15.0); Immature Platelet Fraction Pct 10.5 % (0.9-11.2); Mean Corpuscular HGB Conc 29.1 g/dl (32-36); Mean Corpuscular Hemoglobin 23.2 pg (26-34); Mean Corpuscular Volume 79.9 fl (80-100); Platelet Count Result 104 k/mm3 (150-375); Red Blood Count 4.22 M/mm3 (4.2-5.4); Red Cell Distribution Width 20.9 % (11.5-14.5); White Blood Count 4.6 K/mm3 (4.5-10.0)
[2021-05-28] MEDS: FLUTICASONE/SALMETEROL 115-21 MCG INHALER 1 PUFF 2 PUFF INHALATION ×2 (10:08→21:40)
--- NOTE | 2021-05-28 11:05 | PM.IMPN ---
Progress Note: A&P Assessment and Plan (1) GI bleed: Code(s): K92.2 - Gastrointestinal hemorrhage, unspecified Status: Acute Assessment and Plan: Presumed upper GI bleed given her symptoms and melena. She has been started on Protonix [address] Davis has been consulted. Endoscopic scheduled for today. (2) Profound anemia: Code(s): D64.9 - Anemia, unspecified Status: Acute Assessment and Plan: Transfuse to a stable hemoglobin. Hold aspirin. (3) Coronary artery disease: Code(s): I25.10 - Atherosclerotic heart disease of [place] coronary artery without angina pectoris Status: Acute Assessment and Plan: No acute issues. She had stents placed approximately 6 years ago and was recently taken off of Plavix. (4) Hypertension: Qualifiers: Hypertension type: primary hypertension Qualified Code(s): I10 - Essential (primary) hypertension Code(s): I10 - Essential (primary) hypertension Status: Acute Assessment and Plan: Blood pressures were reviewed and they are stable. Antihypertensives will be reviewed and resumed as appropriate. (5) Insulin dependent type 2 diabetes mellitus: Code(s): E11.9 - Type 2 diabetes mellitus without complications; Z79.4 - detention (current) use of insulin Status: Acute Assessment and Plan: Hold insulin tonight in anticipation of endoscopy tomorrow. Initiate sliding scale insulin, Accu-Cheks, and hypoglycemic protocol. (6) Renal insufficiency: Code(s): N28.9 - Disorder of kidney and ureter, unspecified Status: Acute Assessment and Plan: 05/28/2021 Continue current plan of care and treatment. Hemoglobin stable. Scheduled for paracentesis, possible discharge in the morning. Subjective Date/time seen: 05/28/21 11:05 Patient was seen during the morning rounds today. Feeling better. No acute bleeding. No shortness of breath or chest pain. No abdominal pain, no nausea, no vomiting. Mood stable Review of Systems Review of Systems: All systems reviewed & are unremarkable except as noted in HPI and below (the history and physical examination.) Exam Narrative: General: Well-developed female lying on her left side in bed in no distress. Weight: 80.3 kg. BMI: 34.9. HEENT: PERRL, EOMI. Sclerae anicteric. Oral mucosa moist. Oropharynx clear. Neck: Supple. Respiratory: Lungs are clear to auscultation bilaterally. Cardiovascular: Regular rate and rhythm with S1-S2. No murmur, rub, or gallop. Gastrointestinal: Abdomen is distended with positive bowel sounds. She is somewhat tender to palpation throughout the abdomen. No voluntary guarding or rebound tenderness. Skin: Warm and dry. Generalized pallor. Extremities: No cyanosis, clubbing, or edema. Radial and pedal pulses intact. Neurological: Alert. Cranial nerves 2-12 are grossly intact. No gross focal deficits to casual conversation. Psychiatric: Pleasant and cooperative with normal mood and affect. Judgment and insight intact. Objective Data Vital Signs Vital Signs: Vital Signs - 24 hr 05/27/21 12:48 05/27/21 12:58 05/27/21 13:08 Temperature Pulse Rate 88 87 82 Respiratory Rate 29 H 19 17 Blood Pressure 143/83 H 151/80 H 161/72 H Pulse Oximetry 99 100 100 05/27/21 14:00 05/27/21 19:20 05/27/21 19:21 Temperature 36.7 C Pulse Rate 78 Respiratory Rate 18 Blood Pressure 168/69 H 147/64 H 157/68 H Pulse Oximetry 100 99 99 05/27/21 20:00 05/27/21 20:05 05/27/21 20:10 Temperature Pulse Rate Respiratory Rate Blood Pressure 158/71 H 139/66 154/69 H Pulse Oximetry 05/27/21 20:15 05/27/21 21:30 05/27/21 21:32 Temperature Pulse Rate 88 80 80 Respiratory Rate 18 Blood Pressure Pulse Oximetry 98 05/27/21 21:44 05/28/21 06:00 05/28/21 08:42 Temperature 36.8 C 36.6 C Pulse Rate 88 82 82 Respiratory Rate 18 20 Blood Pressure 158/71 H 151
[2021-05-28 11:19] VITALS: O2SAT 95
--- NOTE | 2021-05-28 12:47 | PC.NURSE ---
To US per stretcher.
--- NOTE | 2021-05-28 13:03 | WPDGIPROGNO ---
Progress Note: A&P Assessment and Plan (1) Cirrhosis: Code(s): K74.60 - Unspecified cirrhosis of liver Status: Acute Assessment and Plan: Patient with cirrhosis of liver. This new diagnosis. Etiology unclear may be cryptogenic or perhaps COLLAZO. Will obtain additional lab work. Unable to biopsy liver because of ascites at this point. (2) Esophageal varices: Code(s): I85.00 - Esophageal varices without bleeding Status: Acute Assessment and Plan: Esophageal varices identified at time of endoscopy. Banding of esophageal varices was accomplished. Follow-up EGD in additional banding suggested in 2 months. We will maintain her on low-dose beta-neida in the interim (3) Profound anemia: Code(s): D64.9 - Anemia, unspecified Status: Acute Assessment and Plan: A anemia stable and improving after transfusion suspect she had GI bleed from her esophageal varices several weeks ago. 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 Paracentesis to be performed today for diagnostic purposes. Diuretics with Aldactone started dose will likely need to be increased. Low-salt diet advised. Outpatient follow-up anticipated both with primary care and GI service. Subjective Date/time seen: 05/28/21 13:03 patient alert much more comfortable today. She notices pressure from abdominal distention. No bleeding noted since admission the hospital. Review of Systems Review of Systems: All systems reviewed & are unremarkable except as noted in HPI and below Exam Narrative: Physical exam vital signs are stable. HEENT exam reveals no icterus. Lungs are clear. Heart without murmur. Abdomen is distended with shifting dullness. Extremities without clubbing cyanosis or edema. Objective Data Vital Signs Vital Signs: Vital Signs - 24 hr 05/27/21 13:08 05/27/21 14:00 05/27/21 19:20 Temperature 98.1 F Pulse Rate 82 78 Respiratory Rate 17 18 Blood Pressure 161/72 H 168/69 H 147/64 H Pulse Oximetry 100 100 99 05/27/21 19:21 05/27/21 20:00 05/27/21 20:05 Temperature Pulse Rate Respiratory Rate Blood Pressure 157/68 H 158/71 H 139/66 Pulse Oximetry 99 05/27/21 20:10 05/27/21 20:15 05/27/21 21:30 Temperature Pulse Rate 88 80 Respiratory Rate 18 Blood Pressure 154/69 H Pulse Oximetry 98 05/27/21 21:32 05/27/21 21:44 05/28/21 06:00 Temperature 98.3 F 97.8 F Pulse Rate 80 88 82 Respiratory Rate 18 20 Blood Pressure 158/71 H 151/71 H Pulse Oximetry 98 99 05/28/21 08:42 05/28/21 11:19 Temperature Pulse Rate 82 Respiratory Rate Blood Pressure Pulse Oximetry 95 Intake/Output Intake/Output: Intake & Output 05/25/21 05/26/21 05/27/21 05/28/21 23:59 23:59 23:59 23:59 Intake Total 1750 1540 640 Output Total 900 Balance 1750 640 640 Meds/Results Medications: Active Medications Generic Name Dose Route Start Last Admin Trade Name Freq PRN Reason Stop Dose Admin Acetaminophen 650 mg 05/27/21 14:01 05/27/21 21:34 Acetaminophen 325 Mg Tablet PO 650 mg Q6H PRN Administration Pain or Fever Atorvastatin Calcium 40 mg 05/27/21 09:00 05/28/21 08:42 Atorvastatin 40 Mg Tablet PO 40 mg DAILY SIVA Administration Dextrose 12.5 gm 05/26/21 15:07 Dextrose 50% 25 Gm/50 Ml Syringe IV PUSH PRN PRN Hypoglycemia Protocol Glucagon 1 mg 05/26/21 15:07 Glucagon For Inj 1 Mg Vial IM PRN PRN Hypoglycemia Protocol Glucose 15 gm 05/26/21 15:07 Glucose Oral Gel 15 Gm Of Glucse In 37.5 Gm Tube PO PRN PRN Hypoglycemia Protocol Dextrose 1,000 mls @ 100
[2021-05-28 14:00] VITALS: BP 146/64; PULSE 84; RESP 18; TEMP 36.4; O2SAT 98
[2021-05-28 14:12] LABS: Glucose Point of Care 148 mg/dl (65-105)
[2021-05-28 15:42] LABS: Appearance Peritoneal Fluid Clear (Clear); Source Peritoneal Fluid Peritoneal Fluid
[2021-05-28 15:43] LABS: Color Peritoneal Fluid Yellow (Colorless); Lymphocytes Peritoneal Fluid 25 %; Macrophages Peritoneal Fluid 31 %; Monocytes Peritoneal Fluid 41 %; Neutrophils Peritoneal Fluid 3 % (0-25); Nucleated Cells Peritoneal Flu 202 /uL (0-500); RBC Peritoneal Fluid 513 /uL (0-100000)
[2021-05-28] MEDS: ACETAMINOPHEN 325 MG TABLET 650 MG PO (16:34)
[2021-05-28] MEDS: SPIRONOLACTONE 25 MG TABLET 50 MG PO (16:35)
[2021-05-28 16:54] LABS: Glucose Point of Care 132 mg/dl (65-105)
[2021-05-28 22:00] VITALS: BP 156/62; PULSE 77; RESP 18; TEMP 36.8; O2SAT 100
[2021-05-28] MEDS: METOPROLOL SUCCINATE EXT REL 25 MG TABCR PO (22:19)
[2021-05-28] MEDS: MONTELUKAST SODIUM 10 MG TABLET PO (22:19)
[2021-05-28 23:20] LABS: Glucose Point of Care 194 mg/dl (65-105)
[2021-05-29 06:00] VITALS: BP 118/48; PULSE 76; RESP 16; TEMP 36.8; O2SAT 98
[2021-05-29 08:01] LABS: Glucose Point of Care 139 mg/dl (65-105)
[2021-05-29 08:25] VITALS: PULSE 80
[2021-05-29] MEDS: PROPRANOLOL HCL 20 MG TABLET PO (08:25)
[2021-05-29] MEDS: ATORVASTATIN 40 MG TABLET PO (08:25)
[2021-05-29] MEDS: THERAPEUTIC MULTIVITAMINS/MINERALS TAB (*BKC) 1 TABLET PO (08:25)
[2021-05-29] MEDS: PANTOPRAZOLE 40 MG TABLET PO (08:25)
[2021-05-29] MEDS: SPIRONOLACTONE 25 MG TABLET 50 MG PO (08:26)
--- NOTE | 2021-05-29 09:32 | WPDGIPROGNO ---
Progress Note: A&P Assessment and Plan (1) Cirrhosis: Code(s): K74.60 - Unspecified cirrhosis of liver Status: Acute Assessment and Plan: Patient with cryptogenic cirrhosis of the liver. Etiology uncertain at this time. May be related to COLLAZO. This appears to be causing ascites in known to cause her esophageal varices. Plan is for supportive care. Low-salt diet. Follow-up in the GI office in 1 month. Follow-up EGD anticipated in 2 months for additional banding of varices. Okay for discharge today on a low-salt diet. Diuretics for ascites. (2) Esophageal varices: Code(s): I85.00 - Esophageal varices without bleeding Status: Acute Assessment and Plan: Esophageal varices noted at the time of admission appear to be etiology of anemia. Likely these blood several weeks prior to admission. She now was banded F time of EGD. Follow-up EGD with additional banding suggested in 2 months. Patient should remain on beta-neida therapy prophylactically to prevent additional bleeding. This may be limited by her blood pressure. (3) Ascites: Code(s): R18.8 - Other ascites Status: Acute Assessment and Plan: Patient with ascites appears to be from decompensated cirrhosis. Paracentesis performed initial results suggest transit date. No evidence of infection. Plan is to continue diuretics after discharge. Patient currently on Aldactone 50 mg p.o. b.i.d.. low-salt diet advised. She should start weighing herself daily. Follow-up in the GI office in 1 month. (4) Insulin dependent type 2 diabetes mellitus: Code(s): E11.9 - Type 2 diabetes mellitus without complications; Z79.4 - detention (current) use of insulin Status: Acute Subjective Date/time seen: 05/29/21 09:32 Patient alert and comfortable this morning. Anxious to go home. Had paracentesis yesterday. Patient feels less distended in her abdomen. Tolerating low-salt diet at this time. Review of Systems Review of Systems: All systems reviewed & are unremarkable except as noted in HPI and below Exam Narrative: Physical exam reveals patient be alert. Vital signs stable. She is afebrile and anicteric. Lungs are clear. Heart without murmur. Abdomen modestly distended with shifting dullness. Softer than previous. No organomegaly. No tenderness. Objective Data Vital Signs Vital Signs: Vital Signs - 24 hr 05/28/21 11:19 05/28/21 14:00 05/28/21 22:00 Temperature 97.6 F 98.2 F Pulse Rate 84 77 Respiratory Rate 18 18 Blood Pressure 146/64 H 156/62 H Pulse Oximetry 95 98 100 05/29/21 06:00 05/29/21 08:25 Temperature 98.3 F Pulse Rate 76 80 Respiratory Rate 16 Blood Pressure 118/48 L Pulse Oximetry 98 Intake/Output Intake/Output: Intake & Output 05/26/21 05/27/21 05/28/21 05/29/21 23:59 23:59 23:59 23:59 Intake Total 1750 1540 1580 240 Output Total 900 5850 600 Balance 1750 127 -0690 -092 Meds/Results Medications: Active Medications Generic Name Dose Route Start Last Admin Trade Name Freq PRN Reason Stop Dose Admin Acetaminophen 650 mg 05/27/21 14:01 05/28/21 16:34 Acetaminophen 325 Mg Tablet PO 650 mg Q6H PRN Administration Pain or Fever Atorvastatin Calcium 40 mg 05/27/21 09:00 05/29/21 08:25 Atorvastatin 40 Mg Tablet PO 40 mg DAILY SIVA Administration Dextrose 12.5 gm 05/26/21 15:07 Dextrose 50% 25 Gm/50 Ml Syringe IV PUSH PRN PRN Hypoglycemia Protocol Glucagon 1 mg 05/26/21 15:07 Glucagon For Inj 1 Mg Vial IM PRN PRN Hypoglycemia Protocol Glucose 15 gm 05/26/21 15:07 Glucose Oral Gel 15 Gm Of Glucse In 37.5 Gm Tube PO PRN PRN Hypoglycemia Protocol Dextrose 1,000 mls @ 100 mls/hr 05/26/21 15:07 Dextrose 5% 1,000 Ml IVPB PRN PRN Hypoglycemia Protocol Insulin Aspart 3 - 6 units 05/26/21 17:00 05/29/21 08:19 Insulin Aspart (*Bkc) 100 Units/Ml
[2021-05-29] MEDS: FLUTICASONE/SALMETEROL 115-21 MCG INHALER 1 PUFF 2 PUFF INHALATION (09:36)
[2021-05-29 09:38] VITALS: O2SAT 96
[2021-05-29 12:19] LABS: Glucose Point of Care 223 mg/dl (65-105)
[2021-05-30 20:43] LABS: Glucose Peritoneal Fluid 160 mg/dL; LDH Peritoneal Fluid 58 U/L (<63)
[2021-05-31 17:32] LABS: Amylase Peritoneal Fluid 12 U/L
[2021-06-01 17:44] LABS: Alpha Fetoprotein Tumor Marker 2.5 ng/mL (<6.1)
[2021-06-02 13:06] LABS: Albumin Peritoneal Fluid 0.9 g/dL
== END 2021-05-29 13:16 | disposition home or self-care (01) | DRG 432 ==
LOC: ANHED 13:29 → ANH3MEDSUR 16:23
PROVIDERS: Internal Medicine; Internal Medicine Gastroenterology; Physician Assistant; Admitting Provider Internal Medicine; Emergency Provider Emergency Medicine; PCP Internal Medicine; Visit Provider Internal Medicine
PROC: 0DJ08ZZ Inspection of Upper Intestinal Tract, Via Natural or Artificial Opening Endoscopic (ICD-10-PCS; CPT 43235; principal; 2021-05-27 13:30)
DX: K74.69 Other cirrhosis of liver; I85.11 Secondary esophageal varices with bleeding; R18.8 Other ascites; D64.9 Anemia, unspecified; R10.13 Epigastric pain; I25.10 Atherosclerotic heart disease of native coronary artery without angina pectoris; J44.9 Chronic obstructive pulmonary disease, unspecified; I10 Essential (primary) hypertension; E11.9 Type 2 diabetes mellitus without complications; N28.9 Disorder of kidney and ureter, unspecified; M19.90 Unspecified osteoarthritis, unspecified site; I25.2 Old myocardial infarction; Z79.4 Long term (current) use of insulin; Z79.82 Long term (current) use of aspirin; Z79.84 Long term (current) use of oral hypoglycemic drugs; Z79.899 Other long term (current) drug therapy; Z87.891 Personal history of nicotine dependence
CPT/HCPCS: 36415; 36430; 49083; 74160; 76775; 80053; 82042; 82105; 82150; 82247; 82248; 82945; 82948; 83615; 83735; 85014; 85018; 85025; 85027; 85055; 85610; 85730; 86850; 86900; 86901; 86920; 87070; 87075; 87086; 87205; 88104; 88108; 88305; 89051; 94640; 96361; 96374; 96376; 99285; A9270; C9113; G0378; J7050; J7120; P9016; Q9967

== ENCOUNTER 2021-09-03 08:46 | Outpatient (CLI) | payer OTHER, SELFPAY ==
[2021-09-06 20:44] LABS: SM Antibody <1.0; SM/RNP Antibody <1.0
[2021-09-07 14:51] LABS: Immunoglobulin G, Serum 703 mg/dL (600-1540); Immunoglobulin G1 407 mg/dL (382-929); Immunoglobulin G2 205 mg/dL (241-700); Immunoglobulin G3 99 mg/dL (22-178); Immunoglobulin G4 13.9 mg/dL (4.0-86.0)
== END 2021-09-03 08:47 | disposition home or self-care (01) ==
PROVIDERS: PCP Internal Medicine; Visit Provider Internal Medicine Gastroenterology
DX: K74.60 Unspecified cirrhosis of liver (principal)
CPT/HCPCS: 36415; 82784; 82787; 86235

== ENCOUNTER 2021-10-29 01:02 | Day surgery (SDC) | payer OTHER, SELFPAY ==
[2021-10-09 14:26] VITALS: BMI 32.0
[2021-10-29 08:47] VITALS: BP 132/62; PULSE 64; RESP 16; TEMP 36.3; O2SAT 99
[2021-10-29] MEDS: LACTATED RINGERS 1,000 ML 150 ML IV CONT (09:00)
[2021-10-29 09:02] LABS: Glucose Point of Care 144 mg/dl (65-105)
--- NOTE | 2021-10-29 09:38 | PM.IMHP ---
H&P: HPI History of Present Illness Date/Time: 10/29/21 09:38 Chief Complaint: Esophageal varices. Narrative: This is a 66-year-old white female patient found to have esophageal varices by endoscopy in April 2021. Patient felt to have underlying cirrhosis. Likely on the basis of COLLAZO. Patient has been identified as having a mildly elevated ESHA titer. Patient has normal liver function test currently asymptomatic. She denies abdominal pain. No indication of additional bleeding since April. She presents today for follow-up EGD and possible banding of esophageal varices. Review of Systems Review of Systems: Review of systems noncontributory. [facility] Past Medical History Medical History Allergies Arthritis Chronic obstructive pulmonary disease Coronary artery disease Dyslipidemia Hypertension Insulin dependent type 2 diabetes mellitus Hemoglobin A1c was 7.2% on 04/01/2021. Osteoarthritis Surgical History Surgical History History of cardiac catheterization Status post PCI and stent. History of carpal tunnel release History of section History of cholecystectomy History of hysterectomy Family History Family History Father Hypertension Mother Cancer Hypertension Heart disease Sibling Hypertension Heart disease Grandparent Heart disease Social History Social History Social History: Surrogate decision maker: Raman Ramesh (son) or Latha Yaya (daughter). Code status: Full code. Smoking packs per day: 1 Smoking cigarettes per day: 20.0 Years smoked: 40 Smoking pack-years: 40.00 Smoking status: Former smoker Tobacco type: cigarettes Second hand tobacco smoke exposure: Yes Smoking end date: 05/26/05 Alcohol intake: former Alcohol use details: Drinks perhaps a couple of glasses of wine a month. Substance use: never Living arrangements: with family Additional living arrangements comments: The patient lives in [place]. Additional occupation/education comments: Retired. Spiritual care concerns: No Meds Home Medications and Allergies Home Medications Medication Instructions Recorded Confirmed Type losartan 100 mg tablet 100 mg PO DAILY 04/01/21 10/29/21 History oxybutynin chloride 10 mg 10 mg PO DAILY #90 tabs 04/02/21 10/29/21 Rx tablet,extended release 24 hr metoprolol succinate 25 mg 25 mg PO DAILY #90 tabs 04/20/21 10/29/21 Rx tablet,extended release 24 hr pen needle, diabetic 29 gauge x #100 ea 04/20/21 10/29/21 Rx 1/2 (BD Ultra-Fine Original Pen Needle) montelukast 10 mg tablet 10 mg PO QHS #90 tabs 06/08/21 10/29/21 Rx pantoprazole 40 mg tablet,delayed 40 mg PO QAM #30 tabs 06/22/21 10/29/21 Rx release ferrous sulfate 325 mg (65 mg 325 mg PO BID #60 tabs 09/01/21 10/29/21 Rx iron) tablet fluticasone 250 mcg-salmeterol 50 1 inh inhalation BID #60 ea 09/11/21 10/29/21 Rx mcg/dose blistr powdr for inhalation (Advair Diskus) insulin NPH isoph U-100 human 100 See Rx Instructions subcut BID #15 09/11/21 10/29/21 Rx unit/mL (3 mL) subcutaneous pen mL (Novolin N Flexpen) zolpidem 10 mg tablet 10 mg PO .COMPLEX PRN insomnia #15 09/11/21 10/29/21 Rx tabs atorvastatin 40 mg tablet 40 mg PO DAILY #90 tabs 09/21/21 10/29/21 Rx metformin 1,000 mg tablet 1,000 mg PO BID #180 tabs 09/28/21 10/29/21 Rx spironolactone 25 mg tablet 25 mg PO BID #60 tabs 10/28/21 10/29/21 Rx Allergies Allergy/AdvReac Type Severity Reaction Status Date / Time No Known Allergies Allergy Verified 10/29/21 08:44 Vital Signs Vital Signs - 24 hr 10/29/21 08:47 Temperature 97.4 F L Pulse Rate 64 Respiratory Rate 16 Blood Pressure 132/62 Pulse Oximetry 99 Oxygen Delivery Room Air Exam [place]
--- NOTE | 2021-10-29 09:54 | WPDANESEPPF ---
Anes - Initial Pre Proc Eval Procedure: Operation Date: 10/29/21 09:45 Proposed Procedures p Esophagogastroduodenoscopy - Emile Davis MD Date/Time: 10/29/21 09:54 Surgeon: Emile Davis MD Pre Op Diagnosis: cirrhosis and esophageal varices Patient Data Age: 66 Gender: F Height: 1.6 m Weight: 83.2 kg Last Vital Signs Temp 97.4 F L 10/29/21 08:47 Pulse 64 10/29/21 08:47 Resp 16 10/29/21 08:47 BP 132/62 10/29/21 08:47 Pulse Ox 99 10/29/21 08:47 O2 Del Method Room Air 10/29/21 08:47 Allergies Allergy/AdvReac Type Severity Reaction Status Date / Time No Known Allergies Allergy Verified 10/29/21 08:44 Home Medications Medication Instructions Recorded Confirmed Type losartan 100 mg tablet 100 mg PO DAILY 04/01/21 10/29/21 History oxybutynin chloride 10 mg 10 mg PO DAILY #90 tabs 04/02/21 10/29/21 Rx tablet,extended release 24 hr metoprolol succinate 25 mg 25 mg PO DAILY #90 tabs 04/20/21 10/29/21 Rx tablet,extended release 24 hr pen needle, diabetic 29 gauge x #100 ea 04/20/21 10/29/21 Rx 1/2 (BD Ultra-Fine Original Pen Needle) montelukast 10 mg tablet 10 mg PO QHS #90 tabs 06/08/21 10/29/21 Rx pantoprazole 40 mg tablet,delayed 40 mg PO QAM #30 tabs 06/22/21 10/29/21 Rx release ferrous sulfate 325 mg (65 mg 325 mg PO BID #60 tabs 09/01/21 10/29/21 Rx iron) tablet fluticasone 250 mcg-salmeterol 50 1 inh inhalation BID #60 ea 09/11/21 10/29/21 Rx mcg/dose blistr powdr for inhalation (Advair Diskus) insulin NPH isoph U-100 human 100 See Rx Instructions subcut BID #15 09/11/21 10/29/21 Rx unit/mL (3 mL) subcutaneous pen mL (Novolin N Flexpen) zolpidem 10 mg tablet 10 mg PO .COMPLEX PRN insomnia #15 09/11/21 10/29/21 Rx tabs atorvastatin 40 mg tablet 40 mg PO DAILY #90 tabs 09/21/21 10/29/21 Rx metformin 1,000 mg tablet 1,000 mg PO BID #180 tabs 09/28/21 10/29/21 Rx spironolactone 25 mg tablet 25 mg PO BID #60 tabs 10/28/21 10/29/21 Rx Laboratory Tests 10/29/21 08:59 POC Capillary Glucose 144 mg/dl H mg/dl (65-105) Patient hx anesthesia problems: none Family hx anesthesia problems: none Results Review: All pre-operative results and documents have been reviewed as part of the pre-operative evaluation. [facility] Past Medical History Medical History Allergies Arthritis Chronic obstructive pulmonary disease Coronary artery disease Dyslipidemia Hypertension Insulin dependent type 2 diabetes mellitus Hemoglobin A1c was 7.2% on 04/01/2021. Osteoarthritis Surgical History Surgical History History of cardiac catheterization Status post PCI and stent. History of carpal tunnel release History of section History of cholecystectomy History of hysterectomy Family History Family History Father Hypertension Mother Cancer Hypertension Heart disease Sibling Hypertension Heart disease Grandparent Heart disease Social History Social History Social History: Surrogate decision maker: Raman Ramesh (son) or Latha Javier (daughter). Code status: Full code. Smoking packs per day: 1 Smoking cigarettes per day: 20.0 Years smoked: 40 Smoking pack-years: 40.00 Smoking status: Former smoker Tobacco type: cigarettes Second hand tobacco smoke exposure: Yes Smoking end date: 05/26/05 Alcohol intake: former Alcohol use details: Drinks perhaps a couple of glasses of wine a month. Substance use: never Living arrangements: with family Additional living arrangements comments: The patient lives in [place]. Additional occupation/education comments: Retired. Spiritual care concerns: No Anes - Eval Final PreProcedure Day of Procedure 10/29/21 09:54 Pat
[2021-10-29 10:04] VITALS: BP 161/91; PULSE 83; RESP 18; O2SAT 98
[2021-10-29 10:14] VITALS: BP 152/87; PULSE 75; RESP 16; O2SAT 100
[2021-10-29 10:24] VITALS: BP 172/79; PULSE 76; RESP 20; O2SAT 100
[2021-10-29 10:30] LABS: Glucose Point of Care 124 mg/dl (65-105)
== END 2021-10-29 10:40 | disposition home or self-care (01) ==
PROVIDERS: PCP Internal Medicine; Visit Provider Internal Medicine Gastroenterology
PROC: 0DJ08ZZ Inspection of Upper Intestinal Tract, Via Natural or Artificial Opening Endoscopic (ICD-10-PCS; CPT 43235; principal; 2021-10-29 09:45)
DX: K74.60 Unspecified cirrhosis of liver (principal); I85.10 Secondary esophageal varices without bleeding; J44.9 Chronic obstructive pulmonary disease, unspecified; I25.10 Atherosclerotic heart disease of native coronary artery without angina pectoris; I10 Essential (primary) hypertension; E11.9 Type 2 diabetes mellitus without complications; E78.5 Hyperlipidemia, unspecified; Z95.5 Presence of coronary angioplasty implant and graft; Z87.891 Personal history of nicotine dependence; Z79.4 Long term (current) use of insulin; Z79.84 Long term (current) use of oral hypoglycemic drugs; E66.9 Obesity, unspecified; Z68.32 Body mass index [BMI] 32.0-32.9, adult
CPT/HCPCS: 43244; 36415; 80076; 82948; 85027; 85055; J2704; J7120

== ENCOUNTER 2021-10-29 11:12 | Outpatient (CLI) | payer OTHER, SELFPAY ==
[2021-10-29 11:49] LABS: Hematocrit 38.4 % (37.0-47.0); Immature Platelet Fraction Pct 6.9 % (0.9-11.2); Mean Corpuscular HGB Conc 31.3 g/dl (32-36); Mean Corpuscular Hemoglobin 31.7 pg (26-34); Mean Corpuscular Volume 101.3 fl (80-100); Mean Platelet Volume 11.8 fl (7.4-10.4); Platelet Count Result 99 k/mm3 (150-375); Red Blood Count 3.79 M/mm3 (4.2-5.4); White Blood Count 4.9 K/mm3 (4.5-10.0)
[2021-10-29 12:17] LABS: Alanine Aminotransferase 32 U/L (6-35); Albumin Level 4.2 g/dL (3.5-5.1); Alkaline Phosphatase 105 U/L (38-126); Aspartate Amino Transferase 45 U/L (14-36); Bilirubin,Total 1.2 mg/dL (0.2-1.3)
== END 2021-10-29 11:13 | disposition home or self-care (01) ==
LOC: ANHLAB 11:14
PROVIDERS: PCP Internal Medicine; Visit Provider Internal Medicine Gastroenterology
DX: K92.1 Melena (principal)
CPT/HCPCS: 36415; 80076; 85027; 85055

== ENCOUNTER 2021-12-29 00:07 | Day surgery (SDC) | payer OTHER, SELFPAY ==
[2021-12-10 13:58] VITALS: BMI 32.4
[2021-12-29 07:12] VITALS: BP 144/73; PULSE 75; RESP 16; TEMP 36.4; O2SAT 97; BMI 33.0
[2021-12-29] MEDS: LACTATED RINGERS 1,000 ML 150 ML IV CONT (07:23)
[2021-12-29 07:24] LABS: Glucose Point of Care 124 mg/dl (65-105)
--- NOTE | 2021-12-29 07:53 | PM.IMHP ---
H&P: HPI History of Present Illness Date/Time: 12/29/21 07:53 Chief Complaint: Esophageal varices Narrative: this is a 66-year-old white female patient presents for follow-up EGD with a known history of esophageal varices. Patient has underlying cirrhosis. [place] to likely be on the basis of COLLAZO. The patient had routine blood tests and had a modest elevation of her ESHA. Autoimmune hepatitis cannot be excluded. Hold liver biopsy is being sought not yet available for review. Patient does notice rather vague upper abdominal discomfort. She has had no signs of additional bleeding since April of 2021 she presents today for follow-up possible banding of esophageal varices. Review of Systems Review of Systems: Review of systems noncontributory. [facility] Past Medical History Medical History Allergies Arthritis Chronic obstructive pulmonary disease Coronary artery disease Dyslipidemia Hypertension Insulin dependent type 2 diabetes mellitus Hemoglobin A1c was 7.2% on 04/01/2021. Osteoarthritis Surgical History Surgical History History of cardiac catheterization Status post PCI and stent. History of carpal tunnel release History of section History of cholecystectomy History of hysterectomy Family History Family History Father Hypertension Mother Cancer Hypertension Heart disease Sibling Hypertension Heart disease Grandparent Heart disease Social History Social History Social History: Surrogate decision maker: Raman Ramesh (son) or Latha Javier (daughter). Code status: Full code. Smoking packs per day: 1 Smoking cigarettes per day: 20.0 Years smoked: 40 Smoking pack-years: 40.00 Smoking status: Former smoker Tobacco type: cigarettes Second hand tobacco smoke exposure: Yes Smoking end date: 05/26/05 Alcohol intake: former Alcohol use details: Drinks perhaps a couple of glasses of wine a month. Substance use: never Living arrangements: alone Additional living arrangements comments: The patient lives in [place]. Additional occupation/education comments: Retired. Spiritual care concerns: No Meds Home Medications and Allergies Home Medications Medication Instructions Recorded Confirmed Type losartan 100 mg tablet 100 mg PO DAILY 04/01/21 12/29/21 History oxybutynin chloride 10 mg 10 mg PO DAILY #90 tabs 04/02/21 12/29/21 Rx tablet,extended release 24 hr metoprolol succinate 25 mg 25 mg PO DAILY #90 tabs 04/20/21 12/29/21 Rx tablet,extended release 24 hr pen needle, diabetic 29 gauge x #100 ea 04/20/21 12/29/21 Rx 1/2 (BD Ultra-Fine Original Pen Needle) montelukast 10 mg tablet 10 mg PO QHS #90 tabs 06/08/21 12/29/21 Rx fluticasone 250 mcg-salmeterol 50 1 inh inhalation BID #60 ea 09/11/21 12/29/21 Rx mcg/dose blistr powdr for inhalation (Advair Diskus) insulin NPH isoph U-100 human 100 See Rx Instructions subcut BID #15 09/11/21 12/29/21 Rx unit/mL (3 mL) subcutaneous pen mL (Novolin N Flexpen) zolpidem 10 mg tablet 10 mg PO .COMPLEX PRN insomnia #15 11/12/21 12/29/21 Rx tabs pantoprazole 40 mg tablet,delayed 40 mg PO QAM #30 tabs 11/23/21 12/29/21 Rx release ferrous sulfate 325 mg (65 mg 325 mg PO BID #60 tabs 12/07/21 12/29/21 Rx iron) tablet metformin 1,000 mg tablet 1,000 mg PO BID #180 tabs 12/07/21 12/29/21 Rx atorvastatin 40 mg tablet 40 mg PO DAILY #90 tabs 12/24/21 12/29/21 Rx spironolactone 25 mg tablet 25 mg PO BID #60 tabs 12/28/21 12/29/21 Rx Allergies Allergy/AdvReac Type Severity Reaction Status Date / Time No Known Allergies Allergy Verified 12/29/21 07:10 Vital Signs Vital Signs - 24 hr 12/29/21 07:12 Temperature 97.6 F Pulse Rate 75 Respiratory Rat
--- NOTE | 2021-12-29 08:04 | WPDANESEPPF ---
Anes - Initial Pre Proc Eval Procedure: Operation Date: 12/29/21 08:30 Proposed Procedures p Esophagogastroduodenoscopy - Emile Davis MD Date/Time: 12/29/21 08:04 Surgeon: Emile Davis MD Pre Op Diagnosis: esophageal varacies Patient Data Age: 66 Gender: F Height: 1.6 m Weight: 84.6 kg Last Vital Signs Temp 97.6 F 12/29/21 07:12 Pulse 75 12/29/21 07:12 Resp 16 12/29/21 07:12 BP 144/73 H 12/29/21 07:12 Pulse Ox 97 12/29/21 07:12 O2 Del Method Room Air 12/29/21 07:12 Allergies Allergy/AdvReac Type Severity Reaction Status Date / Time No Known Allergies Allergy Verified 12/29/21 07:10 Home Medications Medication Instructions Recorded Confirmed Type losartan 100 mg tablet 100 mg PO DAILY 04/01/21 12/29/21 History oxybutynin chloride 10 mg 10 mg PO DAILY #90 tabs 04/02/21 12/29/21 Rx tablet,extended release 24 hr metoprolol succinate 25 mg 25 mg PO DAILY #90 tabs 04/20/21 12/29/21 Rx tablet,extended release 24 hr pen needle, diabetic 29 gauge x #100 ea 04/20/21 12/29/21 Rx 1/2 (BD Ultra-Fine Original Pen Needle) montelukast 10 mg tablet 10 mg PO QHS #90 tabs 06/08/21 12/29/21 Rx fluticasone 250 mcg-salmeterol 50 1 inh inhalation BID #60 ea 09/11/21 12/29/21 Rx mcg/dose blistr powdr for inhalation (Advair Diskus) insulin NPH isoph U-100 human 100 See Rx Instructions subcut BID #15 09/11/21 12/29/21 Rx unit/mL (3 mL) subcutaneous pen mL (Novolin N Flexpen) zolpidem 10 mg tablet 10 mg PO .COMPLEX PRN insomnia #15 11/12/21 12/29/21 Rx tabs pantoprazole 40 mg tablet,delayed 40 mg PO QAM #30 tabs 11/23/21 12/29/21 Rx release ferrous sulfate 325 mg (65 mg 325 mg PO BID #60 tabs 12/07/21 12/29/21 Rx iron) tablet metformin 1,000 mg tablet 1,000 mg PO BID #180 tabs 12/07/21 12/29/21 Rx atorvastatin 40 mg tablet 40 mg PO DAILY #90 tabs 12/24/21 12/29/21 Rx spironolactone 25 mg tablet 25 mg PO BID #60 tabs 12/28/21 12/29/21 Rx Laboratory Tests 12/29/21 07:17 POC Capillary Glucose 124 mg/dl H mg/dl (65-105) Patient hx anesthesia problems: none Family hx anesthesia problems: none Results Review: All pre-operative results and documents have been reviewed as part of the pre-operative evaluation. [facility] Past Medical History Medical History Allergies Arthritis Chronic obstructive pulmonary disease Coronary artery disease Dyslipidemia Hypertension Insulin dependent type 2 diabetes mellitus Hemoglobin A1c was 7.2% on 04/01/2021. Osteoarthritis Surgical History Surgical History History of cardiac catheterization Status post PCI and stent. History of carpal tunnel release History of section History of cholecystectomy History of hysterectomy Family History Family History Father Hypertension Mother Cancer Hypertension Heart disease Sibling Hypertension Heart disease Grandparent Heart disease Social History Social History Social History: Surrogate decision maker: Raman Ramesh (son) or Latha Javier (daughter). Code status: Full code. Smoking packs per day: 1 Smoking cigarettes per day: 20.0 Years smoked: 40 Smoking pack-years: 40.00 Smoking status: Former smoker Tobacco type: cigarettes Second hand tobacco smoke exposure: Yes Smoking end date: 05/26/05 Alcohol intake: former Alcohol use details: Drinks perhaps a couple of glasses of wine a month. Substance use: never Living arrangements: alone Additional living arrangements comments: The patient lives in [place]. Additional occupation/education comments: Retired. Spiritual care concerns: No Anes - Eval Final PreProcedure Day of Procedure 12/29/21 08:04 Patient weight: obese
[2021-12-29 08:57] VITALS: BP 154/74; PULSE 85; RESP 16; O2SAT 97
[2021-12-29 09:07] VITALS: BP 156/80; PULSE 80; RESP 22; O2SAT 97
[2021-12-29 09:17] VITALS: BP 137/95; PULSE 78; RESP 19; O2SAT 97
[2021-12-29 09:27] VITALS: BP 135/86; PULSE 68; RESP 19; O2SAT 97
== END 2021-12-29 08:55 | disposition home or self-care (01) ==
PROVIDERS: PCP Family Medicine; Visit Provider Internal Medicine Gastroenterology
PROC: 0DJ08ZZ Inspection of Upper Intestinal Tract, Via Natural or Artificial Opening Endoscopic (ICD-10-PCS; CPT 43235; principal; 2021-12-29 08:30)
DX: I85.00 Esophageal varices without bleeding (principal); Z79.84 Long term (current) use of oral hypoglycemic drugs; Z79.4 Long term (current) use of insulin; M19.90 Unspecified osteoarthritis, unspecified site; I25.10 Atherosclerotic heart disease of native coronary artery without angina pectoris; E78.5 Hyperlipidemia, unspecified; I10 Essential (primary) hypertension; E11.9 Type 2 diabetes mellitus without complications; Z87.891 Personal history of nicotine dependence; E66.9 Obesity, unspecified; Z68.33 Body mass index [BMI] 33.0-33.9, adult; K74.60 Unspecified cirrhosis of liver; K75.4 Autoimmune hepatitis
CPT/HCPCS: 43244; 36415; 82948; 86038; J2704; J7120

== ENCOUNTER 2022-01-28 02:50 | Outpatient (CLI) | payer OTHER, SELFPAY ==
[2022-01-22 13:21] VITALS: BMI 32.4
--- NOTE | 2022-01-22 13:22 | PC.NURSE ---
Pre Radiology instructions Report to the Outpatient Waiting Room, entrance under the green pavilion located off [facility], at time __0730 on date ___01/28/22____. Procedure Time: . One visitor will be allowed to accompany the patient into the hospital. The visitor will be instructed to remain with patient at all times or leave the building due to restrictions. We will allow the visitor to come back to the postoperative area when patient is ready. NO children visitors allowed at this time. You and your visitor will be asked to self-screen and do not enter if you have any COVID symptoms. A mask is required within the hospital. Patients are to have no food or drink 6 hours prior to procedure time (0330 AM) Driving will be restricted after the procedure, you must have a person to drive you home. Labs will be drawn in preop area and once reviewed, you will be taken to radiology area for procedure. When the procedure is completed, you will be taken to outpatient where you will be monitored for several hours. You may have one visitor in this area. Other than holding anti-coagulants, patient may take other medication(s) as scheduled. Prior to your appointment date patients are instructed to hold anti-coagulants after discussing with ordering provider to stop. If unable to discontinue anti-coagulants please notify radiologist. No aspirin or warfarin (Coumadin) for 7 days prior to the procedure. No clopidogrel (Plavix), ticagrelor (Brilinta), prasugrel (Effient) or dabigatran (Pradaxa) for 5 days prior to the procedure. No rivaroxaban (Xarelto), apixaban (Eliquis), dipyridamole (Aggrenox or Persantine) or cilostazol (Pletal) for 2 days prior to the procedure. Medications to discontinue per physician: N/A Date to take last dose: Please leave all valuables, including medications, at home the day of procedure. The hospital will not accept responsibility for valuables. Wear comfortable, loose fitting clothing. Follow any additional instructions given to you from ordering provider. Telephone instructions given to ___PT and asked if any additional questions and then verbalized understanding. Patient advised to call scheduling provider office or registration scheduling [phone] if any additional questions.
[2022-01-28] VITALS (9 sets, daily range): BP systolic 113–140; BP diastolic 61–96; PULSE 62–72; RESP 16–20; TEMP 36.4; O2SAT 97–99
--- NOTE | ~2022-01-28 | US_ITS ---
EXAMINATION: US biopsy liver DATE: 01/28/2022 11:08 INDICATION: Cirrhosis of the liver. Autoimmune hepatitis. TECHNIQUE: The procedure including the risks, benefits, and alternatives was discussed with the patie nt. Risks discussed included bleeding and infection. The patient understood the risks and agreed to p roceed. The skin overlying the left hepatic lobe was prepped and draped in usual sterile fashion. An esthetic was administered with 1% lidocaine subcutaneously. An 18 gauge core biopsy needle was then used to obtain 3 core biopsy specimens under continuous sonographic guidance. The entry site was samara good and dressed. There were no immediate complications. FINDINGS: Ultrasound images demonstrate the needle in the left hepatic lobe. IMPRESSION: 1. Ultrasound-guided random liver core needle biopsy. Reviewed, dictated and finalized at location A.
[2022-01-28] MEDS: SODIUM CHLORIDE 0.9% IV 1,000 ML 30 ML IV CONT (07:50)
[2022-01-28 08:02] LABS: Immature Platelet Fraction Pct 7.4 % (0.9-11.2); Mean Platelet Volume 11.3 fl (7.4-10.4); Platelet Count Result 97 k/mm3 (150-375)
[2022-01-28 08:08] LABS: INR 1.2; Prothrombin Time 14.2 Seconds (11.1-14.7)
[2022-01-28 10:41] LABS: Glucose Point of Care 73 mg/dl (65-105)
--- NOTE | 2022-01-28 11:08 | SUR.PHASEII ---
1010 DR. PINO CALLED TO REQUEST ORDERS.
--- NOTE | 2022-01-28 11:08 | SUR.PHASEII ---
1030 DR. PINO CALLED TO CHECK ON PATIENT STATUS. THIS RN ASKED DR. PINO FOR DIET ORDER.
== END 2022-01-28 14:06 | disposition home or self-care (01) ==
PROVIDERS: PCP Family Medicine; Referring Provider Internal Medicine Gastroenterology; Visit Provider Radiology Diagnostic Radiology
PROC: BF45ZZZ Ultrasonography of Liver (ICD-10-PCS; CPT 47000; principal; 2022-01-28 09:30)
DX: K74.60 Unspecified cirrhosis of liver (principal)
CPT/HCPCS: 36415; 47000; 76942; 82948; 85049; 85055; 85610; 88307; J7030

== ENCOUNTER → 2022-02-04 09:01 | Outpatient (CLI) | payer OTHER, SELFPAY ==
--- NOTE | ~2022-02-04 | XR_ITS ---
EXAMINATION: XR hip LT min 2V INDICATION: Left hip pain TECHNIQUE: Two views of the left hip are obtained. COMPARISON: None available FINDINGS: Bone alignment is normal. There is no fracture. There is mild osteoarthritis of the hip. Th e soft tissues are unremarkable. IMPRESSION: 1. Mild osteoarthritis of the hip. Reviewed, dictated and finalized at location B.
--- NOTE | ~2022-02-04 | XR_ITS ---
EXAMINATION: XR hip RT min 2V DATE: 02/04/2022 09:35 INDICATION: Right hip pain TECHNIQUE: Two views of right hip were obtained. COMPARISON: None. FINDINGS: Bone alignment is normal. There is no fracture. There is mild osteoarthritis of the hip. Ca lcified atherosclerosis is noted. There are phleboliths of the pelvis. IMPRESSION: 1. Mild osteoarthritis of the hip. Reviewed, dictated and finalized at location B.
--- NOTE | ~2022-02-04 | XR_ITS ---
EXAMINATION: XR knee LT min 4V DATE: 02/04/2022 09:36 INDICATION: Left knee pain TECHNIQUE: Four views of the left knee were obtained. COMPARISON: None. FINDINGS: Alignment is normal. No fracture or osteochondral lesion. There is mild tricompartmental os teoarthritis characterized by tiny marginal osteophytes. No joint effusion/synovitis. Soft tissues a re unremarkable. IMPRESSION: 1. Osteoarthritis without acute osseous abnormality. Reviewed, dictated and finalized at location B.
--- NOTE | ~2022-02-04 | XR_ITS ---
EXAMINATION: XR knee RT min 4V DATE: 02/04/2022 09:35 INDICATION: Right knee pain TECHNIQUE: Four views of the right knee were obtained. COMPARISON: None. FINDINGS: Alignment is normal. No fracture or osteochondral lesion. There is mild tricompartmental os teoarthritis characterized by tiny marginal osteophytes. No joint effusion/synovitis. Soft tissues a re unremarkable. IMPRESSION: 1. Mild osteoarthritis without acute osseous abnormality. Reviewed, dictated and finalized at location B.
== END ==
PROVIDERS: PCP Family Medicine; Visit Provider Family Medicine
DX: M17.0 Bilateral primary osteoarthritis of knee (principal); M16.0 Bilateral primary osteoarthritis of hip; Z51.81 Encounter for therapeutic drug level monitoring; Z79.899 Other long term (current) drug therapy
CPT/HCPCS: 36415; 73502; 73564; 80061; 83036

== ENCOUNTER 2022-02-04 09:40 | Outpatient (CLI) | payer OTHER, SELFPAY ==
[2022-02-04 19:55] LABS: Cholesterol 106 mg/dL (0-200); HDL Direct 32 mg/dL; Triglycerides 89 mg/dL (<150)
[2022-02-04 20:05] LABS: LDL Cholesterol Direct 49 mg/dL
[2022-02-04 20:12] LABS: Hemoglobin A1C 6.9 % (<5.7)
== END 2022-02-04 09:41 | disposition home or self-care (01) ==
LOC: ANHGOSHLAB 09:42
PROVIDERS: PCP Family Medicine; Visit Provider Family Medicine
DX: E78.5 Hyperlipidemia, unspecified (principal); E11.9 Type 2 diabetes mellitus without complications
CPT/HCPCS: 36415; 80061; 83036

== ENCOUNTER 2022-03-03 09:41 | Outpatient (CLI) | payer OTHER, SELFPAY ==
[2022-03-03 11:43] LABS: Ammonia 22 umol/L (9-30)
[2022-03-03 19:20] LABS: Alanine Aminotransferase 29 U/L (6-35); Albumin Level 3.7 g/dL (3.5-5.1); Alkaline Phosphatase 109 U/L (38-126); Amylase 92 U/L (30-110); Anion Gap 12 mmol/L (8-16); Aspartate Amino Transferase 51 U/L (14-36); Bilirubin,Total 1.1 mg/dL (0.2-1.3); Blood Urea Nitrogen 29 mg/dL (7-17); Calcium 8.8 mg/dL (8.4-10.2); Carbon Dioxide 20 mmol/L (22-30); Chloride 103 mmol/L (98-107); Estimated Glomerular Filt Rate 32; Glucose 82 mg/dL (65-110); Lipase 165 U/L (23-300); Potassium 4.4 mmol/L (3.4-5.0); Sodium 135 mmol/L (137-145)
[2022-03-03 19:25] LABS: Basophils Absolute Auto 0.1 K/mm3 (0.0-0.1); Basophils Percent Auto 0.6 % (0.2-1.2); Eosinophils Absolute Auto 0.1 K/mm3 (0-0.3); Eosinophils Percent Auto 1.5 % (0-4.4); Hematocrit 38.6 % (37.0-47.0); Hemoglobin 12.1 g/dL (12.0-15.0); Immature Granulocyte Absolute 0.04 K/mm3 (0.00-0.031); Immature Granulocyte Percent A 0.5 % (0-0.5); Immature Platelet Fraction Pct 14.9 % (0.9-11.2); Lymphocytes Absolute Auto 0.87 K/mm3 (0.9-3.2); Mean Corpuscular HGB Conc 31.3 g/dl (32-36); Mean Corpuscular Hemoglobin 31.7 pg (26-34); Mean Platelet Volume 13.6 fl (7.4-10.4); Monocytes Absolute Auto 1.3 K/mm3 (0.1-0.6); Monocytes Percent Auto 16.1 % (2.6-8.5); Neutrophils Absolute Auto 5.6 K/mm3 (1.3-6.7); Neutrophils Percent Auto 70.3 % (45.5-73.1); Platelet Count Result 101 k/mm3 (150-375); Red Blood Count 3.82 M/mm3 (4.2-5.4); Red Cell Distribution Width 14.4 % (11.5-14.5); White Blood Count 7.9 K/mm3 (4.5-10.0)
== END 2022-03-03 09:42 | disposition home or self-care (01) ==
LOC: ANHGOSHLAB 09:45
PROVIDERS: PCP Family Medicine; Visit Provider Family Medicine
DX: R11.2 Nausea with vomiting, unspecified (principal); D64.9 Anemia, unspecified; N28.9 Disorder of kidney and ureter, unspecified
CPT/HCPCS: 36415; 80053; 82140; 82150; 83690; 85025; 85055

== ENCOUNTER 2022-04-08 00:50 | Day surgery (SDC) | payer OTHER, SELFPAY ==
[2022-03-31 14:35] VITALS: BMI 32.0
[2022-04-08 08:42] LABS: Glucose Point of Care 79 mg/dl (65-105)
[2022-04-08 08:43] VITALS: BP 119/66; PULSE 68; RESP 16; TEMP 36.4; O2SAT 100
[2022-04-08] MEDS: LACTATED RINGERS 1,000 ML 150 ML IV CONT (08:47)
--- NOTE | 2022-04-08 09:10 | PM.HPGS ---
History of Present Illness History of Present Illness Consent: Risks, benefits, and alternatives have been discussed and questions answered. Patient agrees to proceed with procedure. Chief complaint: esophageal varices Narrative: Ammy Ramesh is a 66 year old female Presents for follow-up of esophageal varices. Patient had banding of esophageal varices in December 2021. Patient felt to have underlying cirrhosis of liver on the basis of COLLAZO. Liver biopsy was performed and consistent with cirrhosis. No evidence for autoimmune hepatitis by this procedure. Initial antinuclear antibody titer was elevated but follow-up ESHA is negative. Patient reports that she has occasional morning regurgitation. Currently on pantoprazole. Past medical history is significant for diabetes mellitus and obesity. Patient is scheduled to see the hepatology service at [facility] in May 2022. Review of Systems Review of Systems: Review of systems noncontributory. [facility] Past Medical History Medical History Allergies Arthritis Chronic obstructive pulmonary disease Coronary artery disease Dyslipidemia Hypertension Insulin dependent type 2 diabetes mellitus Hemoglobin A1c was 7.2% on 04/01/2021. Osteoarthritis Surgical History Surgical History History of cardiac catheterization Status post PCI and stent. History of carpal tunnel release History of section History of cholecystectomy History of hysterectomy History of liver biopsy (~01/2022) Family History Family History Father Hypertension Mother Cancer Hypertension Heart disease Sibling Hypertension Heart disease Grandparent Heart disease Social History Social History Social History: Surrogate decision maker: Raman Ramesh (son) or Latha Javier (daughter). Code status: Full code. Smoking packs per day: 1 Smoking cigarettes per day: 20.0 Years smoked: 40 Smoking pack-years: 40.00 Smoking status: Former smoker Tobacco type: cigarettes Second hand tobacco smoke exposure: Yes Smoking end date: 05/26/05 Alcohol intake: former Alcohol use details: Drinks perhaps a couple of glasses of wine a month. Substance use: never Substance use type: does not use Living arrangements: alone Additional living arrangements comments: The patient lives in [place]. Additional occupation/education comments: Retired. Spiritual care concerns: No Meds Home Medications and Allergies Home Medications Medication Instructions Recorded Confirmed Type losartan 100 mg tablet 100 mg PO DAILY 04/01/21 04/08/22 History oxybutynin chloride 10 mg 10 mg PO DAILY #90 tabs 04/02/21 04/08/22 Rx tablet,extended release 24 hr metoprolol succinate 25 mg 25 mg PO DAILY #90 tabs 04/20/21 04/08/22 Rx tablet,extended release 24 hr montelukast 10 mg tablet 10 mg PO QHS #90 tabs 06/08/21 04/08/22 Rx fluticasone 250 mcg-salmeterol 50 1 inh inhalation BID #60 ea 09/11/21 04/08/22 Rx mcg/dose blistr powdr for inhalation (Advair Diskus) atorvastatin 40 mg tablet 40 mg PO DAILY #90 tabs 12/24/21 04/08/22 Rx pen needle, diabetic 29 gauge x #100 ea 01/04/22 03/31/22 Rx 1/2 (BD Ultra-Fine Original Pen Needle) insulin NPH isoph U-100 human 100 See Rx Instructions subcut BID #15 02/15/22 04/08/22 Rx unit/mL (3 mL) subcutaneous pen mL (Novolin N Flexpen) pantoprazole 40 mg tablet,delayed 40 mg PO QAM #30 tabs 02/22/22 04/08/22 Rx release ferrous sulfate 325 mg (65 mg 325 mg PO BID #60 tabs 03/08/22 04/08/22 Rx iron) tablet zolpidem 10 mg tablet 10 mg PO .COMPLEX PRN insomnia #15 03/15/22 04/08/22 Rx tabs metformin 1,000 mg tablet 1,000 mg PO BID #180 tabs 03/29/22 04/08/22 Rx spironolactone 25 mg tablet 25 mg PO BID #60 t
--- NOTE | 2022-04-08 09:20 | WPDANESEPPF ---
Anes - Initial Pre Proc Eval Procedure: Operation Date: 04/08/22 10:00 Proposed Procedures p Esophagogastroduodenoscopy - Emile Davis MD Date/Time: 04/08/22 09:20 Surgeon: Emile Davis MD Pre Op Diagnosis: esophageal varices Patient Data Age: 66 Gender: F Height: 1.6 m Weight: 81.4 kg Last Vital Signs Temp 97.5 F L 04/08/22 08:43 Pulse 68 04/08/22 08:43 Resp 16 04/08/22 08:43 BP 119/66 04/08/22 08:43 Pulse Ox 100 04/08/22 08:43 O2 Del Method Room Air 04/08/22 08:43 Allergies Allergy/AdvReac Type Severity Reaction Status Date / Time No Known Allergies Allergy Verified 04/08/22 08:41 Home Medications Medication Instructions Recorded Confirmed Type losartan 100 mg tablet 100 mg PO DAILY 04/01/21 04/08/22 History oxybutynin chloride 10 mg 10 mg PO DAILY #90 tabs 04/02/21 04/08/22 Rx tablet,extended release 24 hr metoprolol succinate 25 mg 25 mg PO DAILY #90 tabs 04/20/21 04/08/22 Rx tablet,extended release 24 hr montelukast 10 mg tablet 10 mg PO QHS #90 tabs 06/08/21 04/08/22 Rx fluticasone 250 mcg-salmeterol 50 1 inh inhalation BID #60 ea 09/11/21 04/08/22 Rx mcg/dose blistr powdr for inhalation (Advair Diskus) atorvastatin 40 mg tablet 40 mg PO DAILY #90 tabs 12/24/21 04/08/22 Rx pen needle, diabetic 29 gauge x #100 ea 01/04/22 03/31/22 Rx 1/2 (BD Ultra-Fine Original Pen Needle) insulin NPH isoph U-100 human 100 See Rx Instructions subcut BID #15 02/15/22 04/08/22 Rx unit/mL (3 mL) subcutaneous pen mL (Novolin N Flexpen) pantoprazole 40 mg tablet,delayed 40 mg PO QAM #30 tabs 02/22/22 04/08/22 Rx release ferrous sulfate 325 mg (65 mg 325 mg PO BID #60 tabs 03/08/22 04/08/22 Rx iron) tablet zolpidem 10 mg tablet 10 mg PO .COMPLEX PRN insomnia #15 03/15/22 04/08/22 Rx tabs metformin 1,000 mg tablet 1,000 mg PO BID #180 tabs 03/29/22 04/08/22 Rx spironolactone 25 mg tablet 25 mg PO BID #60 tabs 03/29/22 04/08/22 Rx ondansetron 4 mg disintegrating 4 mg PO Q8H PRN Nausea And Vomiting 03/31/22 04/08/22 History tablet Laboratory Tests 04/08/22 08:36 POC Capillary Glucose 79 mg/dl mg/dl (65-105) Patient hx anesthesia problems: none Family hx anesthesia problems: none Results Review: All pre-operative results and documents have been reviewed as part of the pre-operative evaluation. [facility] Past Medical History Medical History Allergies Arthritis Chronic obstructive pulmonary disease Coronary artery disease Dyslipidemia Hypertension Insulin dependent type 2 diabetes mellitus Hemoglobin A1c was 7.2% on 04/01/2021. Osteoarthritis Surgical History Surgical History History of cardiac catheterization Status post PCI and stent. History of carpal tunnel release History of section History of cholecystectomy History of hysterectomy History of liver biopsy (~01/2022) Family History Family History Father Hypertension Mother Cancer Hypertension Heart disease Sibling Hypertension Heart disease Grandparent Heart disease Social History Social History Social History: Surrogate decision maker: Raman Ramesh (son) or Latha Yaya (daughter). Code status: Full code. Smoking packs per day: 1 Smoking cigarettes per day: 20.0 Years smoked: 40 Smoking pack-years: 40.00 Smoking status: Former smoker Tobacco type: cigarettes Second hand tobacco smoke exposure: Yes Smoking end date: 05/26/05 Alcohol intake: former Alcohol use details: Drinks perhaps a couple of glasses of wine a month. Substance use: never Substance use type: does not use Living arrangements: alone Additional living arrangements comments: The patient lives in [place]. Additional occupat
[2022-04-08 09:57] VITALS: BP 111/61; PULSE 76; RESP 19; O2SAT 95
[2022-04-08 10:05] LABS: Glucose Point of Care 83 mg/dl (65-105)
[2022-04-08 10:07] VITALS: BP 117/63; PULSE 72; RESP 18; O2SAT 98
[2022-04-08 10:17] VITALS: BP 137/70; PULSE 71; RESP 18; O2SAT 98
== END 2022-04-08 10:21 | disposition home or self-care (01) ==
PROVIDERS: PCP Family Medicine; Visit Provider Internal Medicine Gastroenterology
PROC: 0DJ08ZZ Inspection of Upper Intestinal Tract, Via Natural or Artificial Opening Endoscopic (ICD-10-PCS; CPT 43235; principal; 2022-04-08 10:00)
DX: K74.60 Unspecified cirrhosis of liver (principal); I85.10 Secondary esophageal varices without bleeding; I25.10 Atherosclerotic heart disease of native coronary artery without angina pectoris; J44.9 Chronic obstructive pulmonary disease, unspecified; E78.5 Hyperlipidemia, unspecified; I10 Essential (primary) hypertension; E11.9 Type 2 diabetes mellitus without complications; M19.90 Unspecified osteoarthritis, unspecified site; Z95.5 Presence of coronary angioplasty implant and graft; Z87.891 Personal history of nicotine dependence; Z79.51 Long term (current) use of inhaled steroids; Z79.4 Long term (current) use of insulin; Z79.84 Long term (current) use of oral hypoglycemic drugs; E66.9 Obesity, unspecified; Z68.31 Body mass index [BMI] 31.0-31.9, adult
CPT/HCPCS: 43244; 82948; J2704; J7120

== ENCOUNTER 2022-07-12 00:17 | Day surgery (SDC) | payer OTHER, SELFPAY ==
[2022-06-28 13:51] VITALS: BMI 30.8
[2022-07-12 07:46] VITALS: BP 133/70; PULSE 80; RESP 20; TEMP 36.2; O2SAT 99; BMI 31.4
[2022-07-12] MEDS: LACTATED RINGERS 1,000 ML 150 ML IV CONT (07:55)
[2022-07-12 07:56] LABS: Glucose Point of Care 92 mg/dl (65-105)
--- NOTE | 2022-07-12 08:00 | WPDANESEPPF ---
Anes - Initial Pre Proc Eval Procedure: Operation Date: 07/12/22 08:30 Proposed Procedures p Esophagogastroduodenoscopy EGD - Emile Davis MD Date/Time: 07/12/22 08:00 Surgeon: Emile Davis MD Pre Op Diagnosis: esophageal varacies Patient Data Age: 67 Gender: F Height: 1.6 m Weight: 80.4 kg Last Vital Signs Temp 97.2 F L 07/12/22 07:46 Pulse 80 07/12/22 07:46 Resp 20 07/12/22 07:46 BP 133/70 07/12/22 07:46 Pulse Ox 99 07/12/22 07:46 O2 Del Method Room Air 07/12/22 07:46 Allergies Allergy/AdvReac Type Severity Reaction Status Date / Time No Known Allergies Allergy Verified 07/12/22 07:45 Home Medications Medication Instructions Recorded Confirmed Type losartan 100 mg tablet 100 mg PO DAILY 04/01/21 06/28/22 History metoprolol succinate 25 mg 25 mg PO DAILY #90 tabs 04/20/21 06/28/22 Rx tablet,extended release 24 hr montelukast 10 mg tablet 10 mg PO QHS #90 tabs 06/08/21 06/28/22 Rx fluticasone 250 mcg-salmeterol 50 1 inh inhalation BID #60 ea 09/11/21 06/28/22 Rx mcg/dose blistr powdr for inhalation (Advair Diskus) atorvastatin 40 mg tablet 40 mg PO DAILY #90 tabs 12/24/21 06/28/22 Rx pen needle, diabetic 29 gauge x #100 ea 01/04/22 03/31/22 Rx 1/2 (BD Ultra-Fine Original Pen Needle) insulin NPH isoph U-100 human 100 See Rx Instructions subcut BID #15 02/15/22 06/28/22 Rx unit/mL (3 mL) subcutaneous pen mL (Novolin N FlexPen) metformin 1,000 mg tablet 1,000 mg PO BID #180 tabs 03/29/22 06/28/22 Rx pantoprazole 40 mg tablet,delayed See Rx Instructions .Route 05/19/22 06/28/22 Rx release .COMPLEX #90 tabs blood sugar diagnostic (Contour #100 ea 05/25/22 Rx Test Strips) blood-glucose meter (Contour Meter) #1 ea 05/25/22 Rx spironolactone 25 mg tablet 25 mg PO BID #60 tabs 06/07/22 06/28/22 Rx ferrous sulfate 325 mg (65 mg 325 mg PO BID #60 tabs 06/21/22 06/28/22 Rx iron) tablet oxybutynin chloride 10 mg 10 mg PO DAILY #90 tabs 07/05/22 07/12/22 Rx tablet,extended release 24 hr zolpidem 10 mg tablet 10 mg PO .COMPLEX PRN insomnia #15 07/05/22 07/12/22 Rx tabs Laboratory Tests 07/12/22 07:53 POC Capillary Glucose 92 mg/dl mg/dl (65-105) Patient hx anesthesia problems: none Family hx anesthesia problems: none Results Review: All pre-operative results and documents have been reviewed as part of the pre-operative evaluation. [facility] Past Medical History Medical History Allergies Arthritis Chronic obstructive pulmonary disease Coronary artery disease Dyslipidemia Hypertension Insulin dependent type 2 diabetes mellitus Hemoglobin A1c was 7.2% on 04/01/2021. Osteoarthritis Surgical History Surgical History History of cardiac catheterization Status post PCI and stent. History of carpal tunnel release History of section History of cholecystectomy History of hysterectomy History of liver biopsy (~01/2022) Family History Family History Father Hypertension Mother Cancer Hypertension Heart disease Sibling Hypertension Heart disease Grandparent Heart disease Social History Social History Social History: Surrogate decision maker: Raman Ramesh (son) or Latha Yaya (daughter). Code status: Full code. Smoking packs per day: 1 Smoking cigarettes per day: 20.0 Years smoked: 40 Smoking pack-years: 40.00 Smoking status: Former smoker Tobacco type: cigarettes Second hand tobacco smoke exposure: Yes Smoking end date: 05/26/05 Alcohol intake: former Alcohol use details: Drinks perhaps a couple of glasses of wine a month. Substance use: never Substance use type: does not use Lack of Transportation: No Lack of Food: Never True Current Housing: [place]
--- NOTE | 2022-07-12 08:16 | PM.HPGS ---
History of Present Illness History of Present Illness Consent: Risks, benefits, and alternatives have been discussed and questions answered. Patient agrees to proceed with procedure. Chief complaint: esophageal varacies Narrative: Ammy Ramesh is a 67 year old female Presents for EGD and banding of esophageal varices. Patient has underlying cirrhosis felt to be secondary to COLLAZO. Patient currently has done well. She occasionally will have a vomiting episode. She has had no recent upper GI bleeding. She denies abdominal pain. Her family history is noncontributory. Patient currently maintained on pantoprazole. She does take metoprolol and spironolactone. Review of Systems Review of Systems: Review of systems noncontributory. [facility] Past Medical History Medical History Allergies Arthritis Chronic obstructive pulmonary disease Coronary artery disease Dyslipidemia Hypertension Insulin dependent type 2 diabetes mellitus Hemoglobin A1c was 7.2% on 04/01/2021. Osteoarthritis Surgical History Surgical History History of cardiac catheterization Status post PCI and stent. History of carpal tunnel release History of section History of cholecystectomy History of hysterectomy History of liver biopsy (~01/2022) Family History Family History Father Hypertension Mother Cancer Hypertension Heart disease Sibling Hypertension Heart disease Grandparent Heart disease Social History Social History Social History: Surrogate decision maker: Raman Ramesh (son) or Latha Javier (daughter). Code status: Full code. Smoking packs per day: 1 Smoking cigarettes per day: 20.0 Years smoked: 40 Smoking pack-years: 40.00 Smoking status: Former smoker Tobacco type: cigarettes Second hand tobacco smoke exposure: Yes Smoking end date: 05/26/05 Alcohol intake: former Alcohol use details: Drinks perhaps a couple of glasses of wine a month. Substance use: never Substance use type: does not use Lack of Transportation: No Lack of Food: Never True Current Housing: I Have Housing Concerned About Future Housing: No Difficulty Paying Gas/Electric Bills: No Difficulty Paying for Meds: No Currently Unemployed: No Education: Associate Degree Difficulty w/ Childcare or Family Care: No Living arrangements: alone Additional living arrangements comments: The patient lives in [place]. Occupation/Education: retired Additional occupation/education comments: Retired. Spiritual care concerns: No Meds Home Medications and Allergies Home Medications Medication Instructions Recorded Confirmed Type losartan 100 mg tablet 100 mg PO DAILY 04/01/21 06/28/22 History metoprolol succinate 25 mg 25 mg PO DAILY #90 tabs 04/20/21 06/28/22 Rx tablet,extended release 24 hr montelukast 10 mg tablet 10 mg PO QHS #90 tabs 06/08/21 06/28/22 Rx fluticasone 250 mcg-salmeterol 50 1 inh inhalation BID #60 ea 09/11/21 06/28/22 Rx mcg/dose blistr powdr for inhalation (Advair Diskus) atorvastatin 40 mg tablet 40 mg PO DAILY #90 tabs 12/24/21 06/28/22 Rx pen needle, diabetic 29 gauge x #100 ea 01/04/22 03/31/22 Rx 1/2 (BD Ultra-Fine Original Pen Needle) insulin NPH isoph U-100 human 100 See Rx Instructions subcut BID #15 02/15/22 06/28/22 Rx unit/mL (3 mL) subcutaneous pen mL (Novolin N FlexPen) pantoprazole 40 mg tablet,delayed See Rx Instructions .Route 05/19/22 06/28/22 Rx release .COMPLEX #90 tabs blood sugar diagnostic (Contour #100 ea 05/25/22 Rx Test Strips) blood-glucose meter (Contour Meter) #1 ea 05/25/22 Rx spironolactone 25 mg tablet 25 mg PO BID #60 tabs 06/07/22 06/28/22 Rx ferrous sulfate 325 mg (65 mg 325 mg PO BID #60 tabs 06/21/
[2022-07-12 08:39] VITALS: BP 133/70; PULSE 82; RESP 16; TEMP 36.2; O2SAT 99
[2022-07-12 08:49] VITALS: BP 121/68; PULSE 81; RESP 19; TEMP 36.2; O2SAT 99
[2022-07-12 08:57] VITALS: BP 136/80; PULSE 77; RESP 19; TEMP 36.2; O2SAT 100
[2022-07-12 09:03] LABS: Glucose Point of Care 83 mg/dl (65-105)
== END 2022-07-12 09:04 | disposition home or self-care (01) ==
PROVIDERS: PCP Family Medicine; Visit Provider Internal Medicine Gastroenterology
PROC: 0DJ08ZZ Inspection of Upper Intestinal Tract, Via Natural or Artificial Opening Endoscopic (ICD-10-PCS; CPT 43235; principal; 2022-07-12 08:30)
DX: K74.60 Unspecified cirrhosis of liver (principal); I85.10 Secondary esophageal varices without bleeding; I10 Essential (primary) hypertension; E11.9 Type 2 diabetes mellitus without complications; I25.10 Atherosclerotic heart disease of native coronary artery without angina pectoris; J44.9 Chronic obstructive pulmonary disease, unspecified; E78.5 Hyperlipidemia, unspecified; Z79.4 Long term (current) use of insulin; Z79.84 Long term (current) use of oral hypoglycemic drugs; Z95.5 Presence of coronary angioplasty implant and graft; Z87.891 Personal history of nicotine dependence; E66.9 Obesity, unspecified; Z68.31 Body mass index [BMI] 31.0-31.9, adult
CPT/HCPCS: 43244; 82948; J2704; J7120

== ENCOUNTER 2022-12-23 10:50 | Outpatient (CLI) | payer OTHER, SELFPAY ==
[2022-12-23 13:01] LABS: Basophils Percent Auto 0.5 % (0.2-1.2); Eosinophils Absolute Auto 0.1 K/mm3 (0-0.3); Eosinophils Percent Auto 1.9 % (0-4.4); Hematocrit 36.4 % (37.0-47.0); Hemoglobin 11.6 g/dL (12.0-15.0); Immature Granulocyte Absolute 0.01 K/mm3 (0.00-0.031); Immature Granulocyte Percent A 0.2 % (0-0.5); Lymphocytes Absolute Auto 0.84 K/mm3 (0.9-3.2); Lymphocytes Percent Auto 14.6 % (18.3-44.2); Mean Corpuscular HGB Conc 31.9 g/dl (32-36); Mean Corpuscular Hemoglobin 31.6 pg (26-34); Mean Corpuscular Volume 99.2 fl (80-100); Mean Platelet Volume 11.7 fl (7.4-10.4); Monocytes Absolute Auto 0.7 K/mm3 (0.1-0.6); Neutrophils Absolute Auto 4.1 K/mm3 (1.3-6.7); Neutrophils Percent Auto 70.8 % (45.5-73.1); Platelet Count Result 115 k/mm3 (150-375); Red Blood Count 3.67 M/mm3 (4.2-5.4); Red Cell Distribution Width 14.5 % (11.5-14.5); White Blood Count 5.8 K/mm3 (4.5-10.0)
[2022-12-23 13:24] LABS: Alanine Aminotransferase 32 U/L (6-35); Albumin Level 3.8 g/dL (3.5-5.1); Alkaline Phosphatase 96 U/L (38-126); Anion Gap 10 mmol/L (8-16); Aspartate Amino Transferase 41 U/L (14-36); Bilirubin,Total 1.2 mg/dL (0.2-1.3); Blood Urea Nitrogen 18 mg/dL (7-17); Calcium 8.9 mg/dL (8.4-10.2); Carbon Dioxide 23 mmol/L (22-30); Chloride 106 mmol/L (98-107); Cholesterol 98 mg/dL (0-200); Estimated Glomerular Filt Rate 55; Glucose 89 mg/dL (65-110); HDL Direct 25 mg/dL; Potassium 4.5 mmol/L (3.4-5.0); Sodium 139 mmol/L (137-145); Triglycerides 146 mg/dL (<150)
[2022-12-23 13:39] LABS: LDL Cholesterol Direct 41 mg/dL
[2022-12-23 15:56] LABS: Creatinine Urine 252.1 mg/dL; MALB Creatinine Ratio 22.7 mg/g (0-30); Microalbumin Urine Random 57.2 mg/L (0-16.7)
[2022-12-23 17:11] LABS: Hemoglobin A1C 6.1 % (<5.7)
== END 2022-12-23 10:51 | disposition home or self-care (01) ==
LOC: ANHGOSHLAB 10:51
PROVIDERS: PCP Family Medicine; Visit Provider Family Medicine
DX: R53.83 Other fatigue (principal); E11.9 Type 2 diabetes mellitus without complications; Z13.228 Encounter for screening for other metabolic disorders; Z13.220 Encounter for screening for lipoid disorders
CPT/HCPCS: 36415; 80053; 80061; 82043; 83036; 85025

== ENCOUNTER 2023-08-30 09:44 | Outpatient (CLI) | payer OTHER, SELFPAY ==
--- NOTE | ~2023-08-30 | MM_ITS ---
EXAMINATION: MM screening de[facility] BI w sara HISTORY: Screening TECHNIQUE: Craniocaudal and mediolateral oblique 3-D tomosynthesis images were obtained and synthetic 2-D images were generated. CAD analysis was submitted and interpreted. COMPARISON: 06/30/2013 BREAST PARENCHYMAL COMPOSITION: Not Dense: Breast are almost entirely fatty. FINDINGS: There is no evidence of suspicious mass, calcification, or architectural distortion to sugg est malignancy in either breast. There has been no suspicious interval change. IMPRESSION: 1. No mammographic evidence of malignancy. 2. Recommend routine screening mammography in one year. BI-RADS Category 1: Negative Reviewed, dictated and finalized at location A.
== END 2023-08-30 09:45 | disposition home or self-care (01) ==
PROVIDERS: PCP Family Medicine; Visit Provider Family Medicine
DX: Z12.31 Encounter for screening mammogram for malignant neoplasm of breast (principal)
CPT/HCPCS: 77063; 77067

== ENCOUNTER 2023-10-02 06:48 | Emergency (ER) | payer OTHER, SELFPAY ==
--- NOTE | ~2023-10-02 | CT_ITS ---
EXAMINATION: CT abdomen pelvis wo con DATE: 10/02/2023 07:46 INDICATION: Left flank pain. Hematuria. TECHNIQUE: Computed tomography (CT) of the abdomen and pelvis was performed without intravenous contr ast. Automated exposure control and iterative reconstruction technique were employed. The dose-length product was 771.26 mGy-cm. COMPARISON: CT abdomen 05/27/2021 FINDINGS: The visualized portions of the lung bases demonstrate mild atelectasis. A calcified right l christel nodule is consistent with old granulomatous disease. No pleural effusion. The heart size is verna l. There are coronary artery calcifications. No pericardial effusion. The liver demonstrates surface nodularity, consistent with cirrhosis. There are changes of cholecystectomy. The common duct is dilat ed to 13 mm, stable from 05/27/21. There is severe splenomegaly. Paraesophageal and periumbilical leonardo ices are noted. The pancreas, adrenal glands, and left kidney are normal. There is a 3.3 cm cyst in r ight kidney. Perirectal varices are noted. There is diverticulosis of the colon without evidence of d iverticulitis. There are no dilated loops of bowel. The appendix is normal. There is edema of the int ra-abdominal fat. There are no pathologically enlarged lymph nodes. There is no free intraperitoneal fluid. There is mild thoracic and lumbar spondylosis. IMPRESSION: 1. Cirrhosis of the liver with portal venous hypertension. 2. No urolithiasis. Reviewed, dictated and finalized at location A.
[2023-10-02 06:59] VITALS: BP 142/75; PULSE 79; RESP 17; TEMP 36.6; O2SAT 97
--- NOTE | 2023-10-02 07:02 | PC.NURSE ---
Pt ambulated to restroom at this time in attempt to obtain urine sample. Pt instructed to take sample back to room and leave on counter if obtained.
[2023-10-02 07:06] LABS: Basophils Percent Auto 0.7 % (0.2-1.2); Eosinophils Absolute Auto 0.2 K/mm3 (0-0.3); Eosinophils Percent Auto 2.7 % (0-4.4); Hematocrit 36.8 % (37.0-47.0); Hemoglobin 11.5 g/dL (12.0-15.0); Immature Granulocyte Absolute 0.02 K/mm3 (0.00-0.031); Immature Granulocyte Percent A 0.4 % (0-0.5); Lymphocytes Absolute Auto 0.74 K/mm3 (0.9-3.2); Lymphocytes Percent Auto 13.2 % (18.3-44.2); Mean Corpuscular HGB Conc 31.3 g/dl (32-36); Mean Corpuscular Hemoglobin 29.9 pg (26-34); Mean Corpuscular Volume 95.6 fl (80-100); Mean Platelet Volume 12.2 fl (7.4-10.4); Monocytes Absolute Auto 0.6 K/mm3 (0.1-0.6); Monocytes Percent Auto 10.7 % (2.6-8.5); Neutrophils Percent Auto 72.3 % (45.5-73.1); Platelet Count Result 109 k/mm3 (150-375); Red Blood Count 3.85 M/mm3 (4.2-5.4); Red Cell Distribution Width 17.4 % (11.5-14.5); White Blood Count 5.6 K/mm3 (4.5-10.0)
--- NOTE | 2023-10-02 07:10 | ED.ABDPAIN ---
HPI - Abdominal Pain General Chief Complaint: Abdominal Pain Stated Complaint: UTI Time Seen by Provider: 10/02/23 06:54 History of Present Illness HPI narrative: 68-year-old female with history of urinary tract infection and ureteral calculi present to the emergency department for evaluation of left flank pain that radiates down to her left lower quadrant. Patient does describe burning with urination with this. Patient reports his symptoms started yesterday and worsened through the evening. Patient states the pain is less intense than her previous kidney stones. Related Data Home Medications Medication Instructions Recorded Confirmed losartan 100 mg tablet See Rx Instructions PO DAILY 12/23/22 07/28/23 Allergies Allergy/AdvReac Type Severity Reaction Status Date / Time No Known Allergies Allergy Verified 10/02/23 06:53 Review of Systems Review of Systems: All systems reviewed & are unremarkable except as noted in HPI and below PMFSH Past Medical History Medical History Allergies Arthritis Chronic obstructive pulmonary disease Coronary artery disease Dyslipidemia Hypertension Insulin dependent type 2 diabetes mellitus Hemoglobin A1c was 7.2% on 04/01/2021. Osteoarthritis Surgical History Surgical History History of cardiac catheterization Status post PCI and stent. History of carpal tunnel release History of section History of cholecystectomy History of hysterectomy History of liver biopsy (~01/2022) Family History Family History Father Hypertension Mother Cancer Hypertension Heart disease Sibling Hypertension Heart disease Grandparent Heart disease Social History Social History Social History: Surrogate decision maker: Raman Ramesh (son) or Latha Yaya (daughter). Code status: Full code. Smoking packs per day: 1 Smoking cigarettes per day: 20.0 Years smoked: 40 Smoking pack-years: 40.00 Smoking status: Former smoker Tobacco type: cigarettes Second hand tobacco smoke exposure: Yes Smoking end date: 05/26/05 Alcohol intake: former Substance use: never Substance use type: does not use Lack of Transportation: No Lack of Food: Never True Current Housing: I Have Housing Concerned About Future Housing: No Difficulty Paying Gas/Electric Bills: No Difficulty Paying for Meds: No Currently Unemployed: No Education: Associate Degree Difficulty w/ Childcare or Family Care: No Living arrangements: alone Additional living arrangements comments: The patient lives in [place]. Occupation/Education: retired Additional occupation/education comments: Retired. Spiritual care concerns: No Exam Narrative: APPEARANCE: Well appearing, no pain, no distress, well-nourished. HEAD: normocephalic, atraumatic. EYES: PERRLA/EOMI, conjunctivae clear. NOSE: Normal no drainage NECK: Supple. No adenopathy, no masses. RESPIRATORY: Airway patent, respirations nonlabored. Clear to auscultation bilaterally, no rales, rhonchi, wheezing. CARDIOVASCULAR: Regular rate and rhythm without murmurs rubs or gallops. ABDOMINAL: Left CVA tenderness to palpation and suprapubic tenderness to palpation MUSCULOSKELETAL: Moves all extremities. Strength/ROM intact, No edema, No calf tenderness. NEURO: Alert. Cranial nerves II through XII intact. Good gait. Good coordination SKIN: Warm, dry. Normal Color Course Course Emergency Course: Patient was treated for urinary tract infection encouraged to have close follow-up with her primary care physician. Vital Signs Vital signs: Vital Signs Temperature 97.9 F 10/02/23 06:59 Pulse Rate 79 10/02/23 06:59 Respiratory Rate 17 10/02/23 06:59 Blood Pressure 142/75 H 10/02/23 06:59 Pulse
[2023-10-02] MEDS: ACETAMINOPHEN 500 MG TABLET 1000 MG PO (07:14)
[2023-10-02 07:17] LABS: Appearance Urine Clear (Clear); Bacteria Urine 1+ /hpf; Bilirubin Urine Negative (Negative); Blood Urine 3+ (Negative); Color Urine Yellow (Yellow); Glucose Urine UA Negative (Negative); Ketones Urine Negative (Negative); Leukocyte Esterase Ur 1+ LEU/UL (Negative); Nitrate Urine Negative (Negative); Non Pathogenic Casts 0-2; Protein Urine 1+ mg/dL (Negative); RBC Urine >100 /hpf (0-2); Specific Grav Ur 1.009 (1.001-1.035); Squamous Epithelial Cell Urine None Seen /hpf (Few)
[2023-10-02 07:19] LABS: Add Urine Microscopic? YES
[2023-10-02 07:28] LABS: Alanine Aminotransferase 21 U/L (6-35); Alkaline Phosphatase 108 U/L (38-126); Anion Gap 7 mmol/L (4-12); Aspartate Amino Transferase 30 U/L (14-36); Bilirubin,Total 0.8 mg/dL (0.2-1.3); Blood Urea Nitrogen 19 mg/dL (7-17); Calcium 9.4 mg/dL (8.4-10.2); Carbon Dioxide 23 mmol/L (22-30); Chloride 108 mmol/L (98-107); Estimated CRCL calculation 54 ml/min; Estimated Glomerular Filt Rate > 60; Glucose 139 mg/dL (65-110); Potassium 4.4 mmol/L (3.4-5.0); Sodium 138 mmol/L (137-145)
[2023-10-02 08:00] VITALS: BP 121/65; PULSE 77; RESP 17; O2SAT 98
[2023-10-02] MEDS: PHENAZOPYRIDINE HCL 100 MG TABLET 200 MG PO (08:04)
[2023-10-02 08:34] VITALS: BP 140/70; PULSE 78; RESP 18; TEMP 36.6; O2SAT 100
== END 2023-10-02 08:37 | disposition home or self-care (01) ==
PROVIDERS: Emergency Provider Emergency Medicine; PCP Family Medicine
DX: N39.0 Urinary tract infection, site not specified (principal); R31.9 Hematuria, unspecified; J44.9 Chronic obstructive pulmonary disease, unspecified; I25.10 Atherosclerotic heart disease of native coronary artery without angina pectoris; I10 Essential (primary) hypertension; E78.5 Hyperlipidemia, unspecified; E11.9 Type 2 diabetes mellitus without complications; M19.90 Unspecified osteoarthritis, unspecified site; Z90.49 Acquired absence of other specified parts of digestive tract; Z90.710 Acquired absence of both cervix and uterus; Z87.891 Personal history of nicotine dependence; K74.60 Unspecified cirrhosis of liver; K76.6 Portal hypertension
CPT/HCPCS: 36415; 74176; 80053; 81001; 85025; 87077; 87086; 87088; 87186; 96365; 99284; A9270; J0696

== ENCOUNTER 2024-01-20 09:32 | Outpatient (CLI) | payer OTHER, SELFPAY ==
[2024-01-20 14:19] LABS: Alanine Aminotransferase 25 U/L (6-35); Albumin Level 4.1 g/dL (3.5-5.1); Alkaline Phosphatase 95 U/L (38-126); Anion Gap 12 mmol/L (4-12); Aspartate Amino Transferase 37 U/L (14-36); Bilirubin,Total 1.1 mg/dL (0.2-1.3); Blood Urea Nitrogen 15 mg/dL (7-17); Calcium 9.2 mg/dL (8.4-10.2); Carbon Dioxide 26 mmol/L (22-30); Chloride 102 mmol/L (98-107); Cholesterol 107 mg/dL (0-200); Estimated Glomerular Filt Rate > 60; Glucose 105 mg/dL (65-110); HDL Direct 35 mg/dL; Potassium 4.4 mmol/L (3.4-5.0); Sodium 140 mmol/L (137-145); Triglycerides 119 mg/dL (<150)
[2024-01-20 14:32] LABS: Hemoglobin A1C 7.3 % (<5.7)
[2024-01-20 14:33] LABS: LDL Cholesterol Direct 47 mg/dL
[2024-01-20 14:42] LABS: Creatinine Urine 193.2 mg/dL
[2024-01-20 14:47] LABS: MALB Creatinine Ratio 8.1 mg/g (0-30); Microalbumin Urine Random 15.7 mg/L (0-16.7)
== END 2024-01-20 09:33 | disposition home or self-care (01) ==
LOC: ANHGOSHLAB 09:33
PROVIDERS: PCP Family Medicine; Visit Provider Family Medicine
DX: E11.9 Type 2 diabetes mellitus without complications (principal); E78.5 Hyperlipidemia, unspecified; Z79.4 Long term (current) use of insulin; Z13.228 Encounter for screening for other metabolic disorders
CPT/HCPCS: 36415; 80053; 80061; 82043; 83036

== ENCOUNTER 2024-06-26 10:02 | Outpatient (CLI) | payer OTHER, SELFPAY ==
--- OUTSIDE RECORDS SUMMARY | 2024-06-26 10:53 | XMS_ITS | Clinical Summary ---
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
--- OUTSIDE RECORDS SUMMARY | 2024-06-26 10:53 | XMS_ITS | Encounter Summary ---
Author Organization [facility] Address [address] [place] [address] Phone Care Team Providers Care Diesel Bus Mechanic Name Role Phone AdrianneEmmett davis Primary Care Provider [phone] Encounter Details Date Type Department Care Team (Late st Contact Info) Description 11/20/2023 Orders Only [facility] Scanning, Provider Social History Tobacco Use Types Packs/Day Years Used Date Smoking Tobacco: Former Cigarettes Q uit: 2008 AUDIT-C Answer Date Recorded Q1: How often do you have a drink containing alcohol? Never 10/18/2023 Q2: How many drinks containi ng alcohol do you have on a typical day when you are drinking? Patient does not drink Q3: How often do you have si x or more drinks on one occasion? Never 10/18/2023 Personal Safety Answer Date Recorded Have you ever been in or are you currently in a harmful physical or emotional relationship or is someone making you feel afraid or unsafe? Denies 10/18/2023 Comments No Sex and Gender Information Value Date Recorded Sex Assigned at Not on file Legal Sex Female 11:51 AM CDT Gender Identity Not on file Sexual Orientation Not on file documented as of this encounter Plan of Treatment Not on file documented as of this encounter Procedures Procedure Name Priority Date/Time Associated Diagnosis Comments SCAN - LABS 11/20/2023 documented in this encounter Results * SCAN - LABS (11/20/2023) us Provider Scanning Final Result documented in this encounter Visit Diagnoses Not on filedocumented in this encounter Additional Health Concerns Infection Onset Date Last Indicated Resolved Time C. difficile suspected 02/02/2024 02/08/202402/02 3:07 AM CDT C. difficile suspected 02/08/2024 02/08/202402/07 7:27 PM CDT documented as of this encounter Care Teams Diesel Bus Mechanic Relationship Specialty Start Date End Date Emmett Mckoy DO PCP - General Family Medicine 08/26/22 documented as of this encounter
--- OUTSIDE RECORDS SUMMARY | 2024-06-26 10:53 | XMS_ITS | Encounter Summary ---
Author Organization Address [address] [place] [address] Care Team Providers Care File Machine Operator Name Role Phone Unavailable Primary Care Provider Unavailabl e Encounter Details Date Type Department Care Team (Late st Contact Info) Description 08/25/2004 Outpatient Historical HIS MAMM Dada Toney MD SCREENING MAMM-MAILG NEOPL-OTHER (Primary Dx) Social History Tobacco Use Types Packs/Day Years Used Date Smoking Tobacco: Never Assessed Comments Unknown Sex and Gender Information Value Date Recorded Sex Assigned at Not on file Legal Sex Female 4:18 AM CANDY ROLLER Gender Identity Not on file Sexual Orientation Not on file documented as of this encounter Plan of Treatment Not on file documented as of this encounter Visit Diagnoses Diagnosis Other screening mammogram- Primary documented in this encounter
--- OUTSIDE RECORDS SUMMARY | 2024-06-26 10:54 | XMS_ITS | CONTINUITY OF CARE DOCUMENT ---
Author Name missy, missy Address Unknown Organization [facility] Address [address] [place] [address] Phone [phone] Care Team Providers Care Production Line Operator Name Role Phone Sammy ZABALA, Pablo Unavailable CHIRAG READ MD Unavailable ALETHEA CHAMORRO DO Unavailable PROBLEMS Condition Status Date Provider Notes COPD active Venkat Murphy Diabetes, Type 2 active ? Pablo Christianson MD Hyperlipidemia active ? Pablo Christianson MD Hypertension--echo ef nl, mild MR, 10/2022 active 1958 Pablo Christianson MD CKD active Venkat Murphy Cardiology examination active Venkat Murphy Cirrhosis, nonalcoholic- wit h esophageal varices active Pablo Christianson MD Tobacco abuseQuit November 2014 active Pablo mckeon MD CAD s/p KUMAR prox and distal CX 01/10 - 05/15 inf wall scar active Pablo Christianson MD ENCOUNTERS Date Type Provider Location Encounter Diag nosis - In-person encounter Office Visit Pablo Christianson MD [facility] Cardiology examination - In-person encounter Office Visit Pablo Christianson MD [facility] Hypertension--echo ef nl, mild MR, 10/2022 - In-person encounter Office Visit Pablo Christianson MD [facility] COPDCKD - In-person encounter Office Visit Pablo Christianson MD [facility] - In-person encounter Office Visit Pablo Christianson MD [facility] Cirrhosis, nonalcoholic- with esophageal varices - In-person encounter Office Visit Pablo Christianson MD [facility] - In-person encounter Office Visit Pablo Christianson MD [facility] - In-person encounter Office Visit Pablo Christianson MD [facility] - In-person encounter Office Visit Pablo Christianson MD [facility] - In-person encounter Office Visit Pablo Christianson MD [facility] - In-person encounter Office Visit Pablo Christianson MD [facility] - In-person encounter Office Visit Pablo Christianson MD [facility] - In-person encounter Office Visit Pablo Christianson MD [facility] CAD s/p KUMAR prox and distal CX 01/10 - 05/15 inf wall scar - In-person encounter Office Visit Pablo Christianson MD [facility] - In-person encounter Office Visit Pablo Christianson MD [facility] Tobacco abuseQuit November 2014 - In-person encounter Office Visit Pablo Christianson MD [facility] - In-person encounter Office Visit Pablo Christianson MD [facility] - In-person encounter Office Visit Pablo Christianson MD [facility] - In-person encounter Office Visit Pablo Christianson MD [facility] CAD s/p KUMAR prox and distal CX 01/10 - 05/15 inf wall scarCOPDDiabetes, Type 2HyperlipidemiaHyper tension--echo ef nl, mild MR, 10/2022Tobacco abuseQuit November 2014 VITAL SIGNS Date Observation Value Provider Body Mass Index (Ratio) 31.53 kg/m2 Paul Christianson MD blood pressure, diastolic 71 mm[Hg] Shubham bren Pedraza blood pressure, systolic 87 mm[Hg] Jazmin jean Pedraza oxygen saturation, oximetry 97 % [facility] pulse rate 101 /min [facility] blood pressure, cuff size regular [facility] weight E&M 178.0 [lb_av] [facility] height E&M 63 [in_i] [facility] Body Mass Index (Ratio) 31.53 kg/m2 Paul Christianson MD blood pressure, cuff size regular [facility] blood pressure, diastolic 78 mm[Hg] [facility], systolic 127 mm[Hg] [facility] pulse rate 79 /min [facility] respiratory rate E&M 12 /min [facility] oxygen saturation, oximetry 99 % [facility] weight E&M 178 [lb_av] [facility] y height E&M 63 [in_i] [facility] y Body Mass Index (Ratio) 30.64 kg/m2 Paul Christianson MD blood pressure, diastolic 61 mm[Hg] Lyn Nobles blood pressure, systolic 91 mm[Hg] Kimberly Nobles oxygen saturation, oximetry 97 % Elizabeth Nobles pulse rate 84 /min Elizabeth Nobles weight E&M 173 [lb_av] Elizabeth Nobles blood pressure, cuff size large Lyn Nobles height E&M 63 [in_i] Elizabeth Giuliano Body Mass Index (Ratio) 31.00 kg/m2 Paul Christianson MD blood pressure, cuff size large Ke rri Gruenenfelder blood pressure, diastolic 72 mm[Hg] Ke rri Gruenenfelder blood pressure, systolic 128 mm[Hg] Everett ri Carmelneyolaelder oxygen saturation, oximetry 97 % Amberly Andreynfelder respiratory rate E&M 14 /min Amberly G ruenenfelder pulse rate 73 /min Amberly Lenine lder weight E&M 175 [lb_av] Amberly Carmelnenfe lder height E&M 63 [in_i] Amberly Andreynfe lder Body Mass Index (Ratio) 32.77 kg/m2 Paul Christianson MD blood pressure, diastolic 69 mm[Hg] Li nkLogic blood pressure, systolic 130 mm[Hg] Kat kLogic blood pressure, diastolic 69 mm[Hg] Sa ra Rios blood pressure, systolic 130 mm[Hg] María a Rios respiratory rate E&M 17 /min Jacqueline Si ms oxygen saturation, oximetry 97 % Jacqueline Rios pulse rate 75 /min Jacqueline Rios blood pressure, cuff size regular Sa ra Rios weight E&M 185 [lb_av] Jacqueline Rios height E&M 63 [in_i] Jacqueline Rios Body Mass Index (Ratio) 36.13 kg/m2 Paul Christianson MD blood pressure, cuff size regular Cy ntvira Ruiz blood pressure, diastolic 76 mm[Hg] Cy ntvira Ruiz blood pressure, systolic 140 mm[Hg] Lily thidalila Ruiz oxygen saturation, oximetry 96 % Aysha Ruiz respiratory rate E&M 18 /min Aysha Ruiz pulse rate 95 /min Aysha Stormbel l weight E&M 204 [lb_av] Aysha Campbel l height E&M 63 [in_i] Aysha Campbel l Body Mass Index (Ratio) 35.96 kg/m2 Paul Christianson MD blood pressure, resting Yes [facility] reese Cabello blood pressure, diastolic 62 mm[Hg] [facility] blood pressure, systolic 140 mm[Hg] [facility] pulse rate 80 /min Maco valladares oxygen saturation, oximetry 98 % Maco Cabello respiratory rate E&M 18 /min Randall Escalonaford weight E&M 203 [lb_av] Maco Escalona valladares height E&M 63 [in_i] Maco Escalona valladares Body Mass Index (Ratio) 35.07 kg/m2 Paul Christianson MD pulse rate 99 /min Aysha Stormbel l blood pressure, cuff size regular Cy lauraa Ruiz blood pressure, diastolic 80 mm[Hg] Cy ntmiyaa Ruiz blood pressure, systolic 160 mm[Hg] Lily ada Ruiz oxygen saturation, oximetry 98 % Aysha Ruiz respiratory rate E&M 18 /min Aysha Ruiz weight E&M 198 [lb_av] Aysha Campbel l height E&M 63 [in_i] Aysha Campbel l Body Mass Index (Ratio) 36.66 kg/m2 Paul Christianson MD blood pressure, cuff size regular Cy nthia Ruiz blood pressure, diastolic 80 mm[Hg] Candelario Ruiz blood pressure, systolic 148 mm[Hg] Lily Ruiz respiratory rate E&M 18 /min Aysha Ruiz oxygen saturation, oximetry 98 % Aysha Ruiz pulse rate 108 /min Aysha rea weight E&M 207 [lb_av] Aysha Yun l height E&M 63 [in_i] Aysha Yun l Body Mass Index (Ratio) 35.78 kg/m2 Paul Christianson MD blood pressure, diastolic 80 mm[Hg] [facility], systolic 140 mm[Hg] Jazmin rodriguez Moore oxygen saturation, oximetry 98 % Curtis Moore respiratory rate E&M 16 /min [place] Moore pulse rate 98 /min Curtis Moore weight E&M 202 [lb_av] Curtis Moore height E&M 63 [in_i] [place] Moore Body Mass Index (Ratio) 36.13 kg/m2 Paul Christianson MD blood pressure, cuff size large Ke rri Daisy blood pressure, diastolic 70 mm[Hg] Ke rri Freduenenfdenverer blood pressure, systolic 142 mm[Hg] Everett iVlla oxygen saturation, oximetry 98 % Amberly Villa respiratory rate E&M 22 /min Amberly oliveraenekimanier pulse rate 107 /min Amberly Maulik lder weight E&M 204 [lb_av] Amberly Gruenenfe lder height E&M 63 [in_i] Amberly Freduenenfe lder Body Mass Index (Ratio) 36.03 kg/m2 Paul Christianson MD blood pressure, cuff size large Da rakel Porter blood pressure, diastolic 76 mm[Hg] Da rakel Charlotte blood pressure, systolic 146 mm[Hg] Dac ia Hcarlotte oxygen saturation, oximetry 94 % Jennifer Charlotte respiratory rate E&M 18 /min Jennifer V oss pulse rate 109 /min Jennifer Charlotte weight E&M 203.4 [lb_av] Jennifer Charlotte height E&M 63 [in_i] Jennifer Charlotte Body Mass Index (Ratio) 36.84 kg/m2 Paul Christianson MD blood pressure, cuff size large Ke rri Daisy blood pressure, diastolic 80 mm[Hg] Ke rri Daisy blood pressure, systolic 120 mm[Hg] Everett Villa oxygen saturation, oximetry 98 % Amberly Villa respiratory rate E&M 18 /min Amberly padgett pulse rate 106 /min Amberly Willingham er weight E&M 208 [lb_av] Amberly Willingham er height E&M 63 [in_i] Amberly Maulik er Body Mass Index (Ratio) 36.66 kg/m2 Paul Christianson MD blood pressure, diastolic 70 mm[Hg] Ki carlos Moore blood pressure, systolic 138 mm[Hg] Kil jennifer [place] oxygen saturation, oximetry 97 % Curtis Moore respiratory rate E&M 16 /min Curtis Moore pulse rate 104 /min Curtis Moore weight E&M 207 [lb_av] Curtis Moore height E&M 63 [in_i] [place] Moore blood pressure, diastolic 88 mm[Hg] Me key Christina blood pressure, systolic 151 mm[Hg] Karely miracle Vasquez pulse rate 104 /min Nancy Vasquez oxygen saturation, oximetry 96 % Nancy Vasquez respiratory rate E&M 15 /min Nancy Vasquez Body Mass Index (Ratio) 36.66 kg/m2 Monica valentine Vasquez weight E&M 207 [lb_av] Nancy Vasquez blood pressure, diastolic 94 mm[Hg] In key Vasquez blood pressure, systolic 153 mm[Hg] Karely rausch Vasquez pulse rate 98 /min Nancy Vasquez oxygen saturation, oximetry 97 % Nancy Vasquez respiratory rate E&M 14 /min Nancy Vasquez Body Mass Index (Ratio) 37.90 kg/m2 Monica valentine Vasquez weight E&M 214 [lb_av] Nancy Vasquez Body Mass Index (Ratio) 35.96 kg/m2 Jeremy Bennett blood pressure, diastolic 93 mm[Hg] An [facility] blood pressure, systolic 144 mm[Hg] Ane vijayas [facility] pulse rate 104 /min [facility] oxygen saturation, oximetry 98 % Montserratatris Donald respiratory rate E&M 18 /min Aneatri s Donald weight E&M 203 [lb_av] Aneatris Donald blood pressure, diastolic 88 mm[Hg] An graceris [facility] blood pressure, systolic 151 mm[Hg] Ane atris Brown Body Mass Index (Ratio) 36.13 kg/m2 Anea cory [facility] pulse rate 114 /min Aneatris Brown oxygen saturation, oximetry 98 % Aneatris [facility] respiratory rate E&M 17 /min Aneatri s Brown weight E&M 204 [lb_av] Aneatris Brown Body Mass Index (Ratio) 36.49 kg/m2 Anea cory [facility] blood pressure, diastolic 83 mm[Hg] An eatris Brown blood pressure, systolic 139 mm[Hg] Montserrat Bennett pulse rate 103 /min Sloan Bennett oxygen saturation, oximetry 97 % Sloan Bennett respiratory rate E&M 18 /min Celso Bennett weight E&M 206 [lb_av] Sloan Bennett height E&M 63 [in_i] Sloan Bennett ALLERGIES No Known Drug Allergies RESULTS Date Observation Value Provider Reference Range Interpretation Location platelet count 189 10*3/mm3 [facility] hematocrit, blood 46.2 % [facility] alanine aminotransferase (SGPT), serum 69 1/L [facility] aspartate aminotransferase (SGOT), serum 62 1/L [facility] blood glucose, random 223 mg/dL [facility] creatinine, serum 0.72 mg/dL [facility] Jarod urea nitrogen, blood 21 mg/dL [facility] potassium, serum 4.3 mmol/L [facility] sodium, serum 134 mmol/L [facility] coagulation managed by Janusz Bateman RN international normalized ratio (INR) 1.1 Amberly Villa Normal prothrombin time (patient) 11.3 s Amberly Villa HISTORY OF MEDICATION USE Medication Status Instructions Dates Provider Indications Com shiras Mounsabrinaro 10 mg/0.5 mL pen injector active Venkat Ahmedzai losartan 50 mg tablet active Take 1 tablet by mouth once daily 11/20 Venkat Ahmedzai losartan 50 mg tablet completed Take 1 tablet by mouth once a day Take 1 tablet by mouth once daily 11/26 - 11/20 Umberto carvedilol 6.25 mg tablet active Venkat Ahmedzai Ozempic 0.25 mg or 0.5 mg (2 mg/3 mL) pen injector completed - 06/25 Venkat Ahmedzai losartan 50 mg tablet completed Take 1 tablet by mouth once daily 12/21 - 11/26 Lynn Nobles RN FeroSul 325 mg (65 mg iron) tablet completed TAKE 1 TABLET BY MOUTH TWICE DAILY - 06/25 Venkat Murphy pantoprazole 40 mg tablet,delayed release (DR/EC) active Jacqueline Rios spironolactone 25 mg tablet active once a day Venkat Murphy zolpidem 10 mg tablet active Pablo Christianson MD oxybutynin chloride 10 mg tablet extended release 24hr completed - 06/25 Venkat Murphy valacyclovir 1 gram tablet completed - 06/23 Venkat Murphy metoprolol succinate 25 mg tablet extended release 24 hr completed 1 tablet once a day 09/17 - 10/26 Venkat Murphy losartan 100 mg tablet completed Take 1 tablet by mouth once a day - 12/21 Venkat Murphy Nitrostat 0.4 mg tablet, sublingual active tablet under tongue as needed 06/12 Pablo Christianson MD NOVOLIN R RELION SOLUTION active Inject 28 once a day 06/12 Aysha Ruiz COZAAR 100 MG ORAL TABLET completed 1 tab daily 12/05 - 09/17 Pablo Christianson MD HUMULIN N 100 UNIT/ML SUBCUTANEOUS SUSPENSION completed inject 24 units subcutaneously twice daily 07/14 - 06/12 Aysha Ruiz #10, 25 days supply, Prescribed by MARCELO, Filled 07/14/2018 metformin 1,000 mg tablet active Take 1 tablet twice a day 11/16 Pablo Christianson MD #180, 90 days supply, Prescribed by PAT ROBERTSON, Filled 11/16/2018 Advair Diskus 250-50 mcg/dose blister with device active Inhale 1 puff by mouth twice a day 11/17 Pablo Christianson MD #180, 90 days supply, Prescribed by PAT ROBERTSON, Filled 11/17/2018 clopidogrel 75 mg tablet completed Take 1 tablet once a day 06/10 - 06/15 Pablo Christianson MD PHENAZOPYRIDINE HCL 200 MG ORAL TABLET completed TAke 1 tablet 4 times daily 11/14 - 01/01 Amberly Villa HYDROCODONE-ACETA MINOPHEN 10-325 MG ORAL TABLET completed Take 1 to 2 tablets every 4-6 hours as needed 11/14 - 12/05 Curtis Moore SYMBICORT 80-4.5 MCG/ACT INHALATION AEROSOL completed Two inhalations twice daily 07/11 - 12/05 Curtis Moore LEVEMIR FLEXTOUCH 100 UNIT/ML SUBCUTANEOUS SOLUTION PEN-INJECTOR completed 64 units - 12/05 Curtis Moore ProAir HFA 90 mcg/actuation HFA aerosol inhaler active as needed Nancy Vasquez GLIMEPIRIDE 1 MG ORAL TABLET completed 1 tab daily - 01/01 Amberly Villa CLOPIDOGREL BISULFATE 75 MG ORAL TABLET completed 1 tab daily - 01/01 Jennifer Porter atorvastatin 40 mg tablet active 1 tablet once a day Pablo Christianson MD NITROLINGUAL 0.4 MG/SPRAY TRANSLINGUAL SOLUTION completed One spray as needed for chest discomfort 01/14 - Nancy Vasquez montelukast 10 mg tablet completed 1 tablet once a day - 06/25 [facility] Calcium 600 + D(3) 600 mg(1,500mg)-200 unit tablet completed 1 tablet twice a day - 06/15 Pablo Christianson MD LISINOPRIL 20 MG ORAL TABLET completed ONE TAB. DAILY 02/26 - 12/05 Pablo Christianson MD SIMVASTATIN 40 MG ORAL TABLET completed 1 tab daily - 01/01 Sloan Bennett JANUMET 50-1000 MG ORAL TABLET completed 1 twice daily - 12/05 Curtis Moore SOCIAL HISTORY Date Observation Value Provider smoking, year quit 2015 Venkat talavera smoking, date started 1970 Venkat queen smoking history, tot al pack/year 46 Venkat Murphy smoking history, tot al pack/day 1/2 Venkat Murphy cigarette use yes Venkat Murphy smoking status Former smoker Venkat Torres i smoking, year quit 2015 Venkat talavera smoking, date started 1970 Venkat queen smoking history, tot al pack/year 46 Venkat Murphy smoking history, tot al pack/day 1/2 Venkat Murphy cigarette use yes Venkat Murphy smoking status Former smoker Venkat Torres i social history E&M S moking History: Althea pond is a former smoker. Venkat Murphy smoking, year quit 2015 Elizabeth Alexander iams smoking, date started 1970 Elizabeth W illiams smoking history, tot al pack/year 47 Elizabeth Giuliano smoking history, tot al pack/day 1/2 Elizabeth Giuliano cigarette use yes Elizabeth Giuliano smoking status Former smoker Elizabeth Chirag s social history reviewed E&M revi ewed - no changes required Venkat Murphy social history E&M S moking History: Althea pond is a former smoker. Venkat Murphy smoking, year quit 2015 Amberly moore smoking, date started 1970 Amberly Villa smoking history, tot al pack/year 47 Amberly Villa smoking history, tot al pack/day 1/2 Amberly Villa cigarette use yes Amberly garcia smoking status Former smoker Amberly hawkins social history reviewed E&M revi ewed - no changes required Venkat Torreskhalif social history reviewed E&M revi ewed - no changes required Pablo Christianson MD smoking, year quit 2015 Aysha moseley smoking, date started 1970 Eduardo Ruiz smoking history, tot al pack/year 46 Aysha Joseph smoking history, tot al pack/day 1/2 Aysha Joseph cigarette use yes Aysha Arianna ll smoking status Former smoker Aysha Storm worrell social history reviewed E&M revi ewed - no changes required Pablo Christianson MD social history E&M S moking History: P atdeja is a former smoker. Alethea Sims social history reviewed E&M revi ewed - no changes required Alethea Sims smoking, year quit 2015 Marni Cabello smoking, date started 1970 Idris Cabello smoking history, tot al pack/year 46 Maco Cabello smoking history, tot al pack/day 1/2 Maco Cabello cigarette use yes Maco leone smoking status Former smoker Maco blake social history reviewed E&M revi ewed - no changes required Pablo Christianson MD smoking, year quit 2015 Aysha moseley smoking, date started 1970 Eduardo Ruiz smoking history, tot al pack/year 46 Aysha Joseph smoking history, tot al pack/day 1/2 Aysha Joseph cigarette use yes Aysha Arianna peter smoking status Former smoker Aysha Storm worrell social history E&M S moking History: Althea pond is a former smoker. Pablo Christianson MD social history reviewed E&M revi ewed - no changes required Pablo Christianson MD smoking, year quit 2015 Aysha moseley smoking, date started 1970 Eduardo Ruiz smoking history, tot al pack/year 46 Aysha Ruiz smoking history, tot al pack/day 1/2 Aysha Ruiz cigarette use yes Aysha Keller rome smoking status Former smoker Aysha worrell social history reviewed E&M revi ewed - no changes required Pablo Christianson MD social history E&M S moking History: Althea pond is a former smoker. Pablo Christianson MD smoking, year quit 2015 [place] I ngram smoking, date started 1970 Killee n Moore smoking history, tot al pack/year 47 Curtis Moore smoking history, tot al pack/day 1/2 [place] Moore cigarette use yes [place] Moore smoking status Former smoker [place] Ingr am social history reviewed E&M revi ewed - no changes required Pablo Christianson MD social history E&M S moking History: Althea pond is a former smoker. Pablo Christianson MD smoking, year quit 2015 Amberly Julio moore smoking, date started 1971 Amberly Villa smoking history, tot al pack/year 46 Amberly Andreynfelder smoking history, tot al pack/day 1/2 Amberly Loreer cigarette use yes Amberly Lenin [facility] smoking status Former smoker Amberly Ibarralouisa harmaner social history E&M S moking History: Althea pond is a former smoker. Pablo Christianson MD social history reviewed E&M revi ewed - no changes required Pablo Christianson MD smoking, year quit 2015 Jennifer Jalil s smoking, date started 1970 Jennifer Charlotte smoking history, tot al pack/year 46 Jennifer Charlotte smoking history, tot al pack/day 1/2 Jennifer Charlotte cigarette use yes Jennifer Charlotte smoking status Former smoker Jennifer Charlotte smoking history, tot al pack/year 47 Marley Sellers RN social history reviewed E&M revi ewed - no changes required Pablo Christianson MD smoking, year quit 2015 Amberly Kim oscar smoking, date started 1970 Amberly Daisy smoking history, tot al pack/year 43 Amberly Balderaskimanier smoking history, tot al pack/day 1/2 Amberly Phelpsdenverer cigarette use yes Amberly Balderasyola garcia smoking status Former smoker Amberly Balderas kimanier social history reviewed E&M revi ewed - no changes required Pablo Christianson MD smoking, year quit 2015 Curtis ojeda number of grandchildren Pablo Christianson MD K anival [place] smoking, date started 1970 Nereida august Moore smoking history, tot al pack/year 43 Curtis Moore smoking history, tot al pack/day 1/2 Curtis Moore cigarette use yes Curtis Moore smoking status Former smoker Curtis Mathew social history reviewed E&M revi ewed - no changes required Nancy Vasquez smoking/tobacco cess ation, patient education and counseling yes Nancy Vasquez smoking, date started 1970 Shaniqua Vasquez smoking history, tot al pack/year 43 Nancy Vasquez smoking history, tot al pack/day 1/2 Nancy Vasquez cigarette use yes Nancy Vasquez smoking status Current every day smoker Kailee Vasquez quit smoking, stage quit Pablo mckeon MD social history reviewed E&M revi ewed - no changes required Pablo Christianson MD smoking/tobacco cess ation, patient education and counseling yes Nancy Vasquez smoking, date started 1970 Shaniqua Vasquez smoking history, tot al pack/year 43 Nancy Vasquez smoking history, tot al pack/day 1/2 Nancy Vasquez cigarette use yes Nancy Vasquez smoking status Current every day smoker Kailee Vasquez social history reviewed E&M revi ewed - no changes required Sloan Bennett social history reviewed E&M revi ewed - no changes required Pablo Christianson MD smoking history, tot al pack/year 43 Pablo Christianson MD social history reviewed E&M revi ewed - no changes required Pablo Christianson MD smoking/tobacco cess ation, patient education and counseling yes Pablo Christianson MD smoking, date started 1970 Emily saini Donald smoking history, tot al pack/day 1/2 [facility] cigarette use yes [facility] smoking status Current every day smoker Dalila harris Donald FAMILY HISTORY Family Member Condition First Degree Blood Relative No Known Fam ana History INSURANCE PROVIDERS Payer name Policy type / Coverage type [employer] ID ESSENCE O Other [id number] ADVANCE DIRECTIVES Name Date DISCUSSED - NO DECISION MADE TREATMENT PLAN Date Name Performer [id number],S, Venkat Bainmedza i [id number],S, Venkat Blackwoodza i [id number],S, Venkat Bainmedza i [id number],S, Venkat Bainmedza i [id number],S, Venkat Bainmedza i [id number],S, Venkat Bainmedza i [id number],S, Venkat Bainmedza i [id number],S, Venkat Bainmedza i [id number],S, Venkat Torres i [id number],S, Venkat Torres i [id number],S, Venkat Torres i [id number],S, Venkat Torres i Cardiology:This visi t has been a part of the consistent, comprehensive, and ongoing management of the chronic medical condition(s) listed above for the patient. Her updated medication list for this problem includes: Carvedilol 6.25 Mg Tablet (Carvedilol) Nitrostat 0.4 Mg Tablet, Sublingual (Nitroglycerin) ..... Tablet under tongue as needed Pablo Christianson MD Cardiology: H er updated medication list for this problem includes: Proair Hfa 90 Mcg/actuation Hfa Aerosol Inhaler (Albuterol sulfate) ..... As needed Advair Diskus 250-50 Mcg/dose Blister With Device (Fluticasone propion-salmeterol) ..... Inhale 1 puff by mouth twice a [facility] H er updated medication list for this problem includes: Atorvastatin 40 Mg Tablet (Atorvastatin) ..... 1 tablet once a day [facility] Card[facility]: H er updated medication list for this problem includes: Mounjaro 10 Mg/0.5 Ml Pen Injector (Tirzepatide) Losartan 50 Mg Tablet (Losartan) ..... Take 1 tablet by mouth once daily Metformin 1,000 Mg Tablet (Metformin) ..... Take 1 tablet twice a day [facility]: H er updated medication list for this problem includes: Spironolactone 25 Mg Tablet (Spironolactone) ..... Once a day Losartan 50 Mg Tablet (Losartan) ..... Take 1 tablet by mouth once daily Carvedilol 6.25 Mg Tablet (Carvedilol) BP today: 87/71 P rior BP: 127/78 (04/25/2023) Labs Reviewed: C reat: 0.72 (01/07/2014) Venkat Murphy [facility]iology Venkat Ahmedzai Cardiology Venkat Ahmedzai Cardiology: H er updated medication list for this problem includes: Carvedilol 6.25 Mg Tablet (Carvedilol) Nitrostat 0.4 Mg Tablet, Sublingual (Nitroglycerin) ..... Tablet under tongue as needed Venkat Ahmedzai Cardiology Venkat Ahmedzai Cardiology Venkat Ahmedzai Cardiology Venkat Ahmedzai Cardiology Venkat Ahmedzai Cardiology Venkat Ahmedzai Cardiology Venkat Ahmedzai Cardiology Venkat Ahmedzai Cardiology Venkat Ahmedzai Cardiology Venkat Ahmedzai Cardiology Venkat Ahmedzai Cardiology Venkat Ahmedzai Cardiology Venkat Ahmedzai Cardiology Venkat Ahmedzai Cardiology Venkat Ahmedzai Cardiology Venkat Ahmedzai Cardiology Venkat Ahmedzai Cardiology Venkat Ahmedzai Cardiology Venkat Ahmedzai Cardiology Alethea Nacht Cardiology Alethea Nacht Cardiology Alethea Babcockt Cardiology follow up Pablo julian MD Cardiology follow up Pablo julian MD Cardiology follow up :Reports SOB with exertion today. Will order stress test and echo. Pablo Christianson MD Cardiology follow up :BP is high today at 160/80. Start on Metoprolol 25 mg daily. Pablo Christianson MD Cardiology follow up - ltr done Pabol Christianson MD Cardiology follow up - ltr done Pablo Christianson MD Cardiology follow up - ltr done Pablo Christianson MD Cardiology follow up - ltr done Pablo Christianson MD Cardiology Pablo Christianson MD Cardiology Pablo Christianson MD Cardiology Pablo Christianson MD Cardiology Pablo Christianson MD Cardiology Pablo Christianson MD Cardiology Follow up Pablo julian MD Cardiology Follow up Toniya Melvin julian MD Cardiology Follow up Toniya Melvin julian MD Cardiology Follow up Toniya Melvin julian MD Cardiology Follow up Toniya Sing iesha ZABALA Cardiology follow up Toniya Melvin julian MD Cardiology follow up Toniya Melvin julian MD Cardiology follow up Toniya Melvin julian MD Cardiology follow up Toniya Melvin julian MD Cardiology follow up Ulisesiakira julian MD Cardiology Follow up :Started on Symbicort one puff twice daily and advised to use ProAir prior to exertion. Pablo Christianson MD Cardiology Follow up : B P today: 120/80 P rior BP: 138/70 (03/29/2017) Labs Reviewed: C reat: 0.72 (01/07/2014) Pablo Christianson MD Cardiology Follow up :Recent stress test shows fixed inferior wall defect. Pablo Christianson MD Cardiology Pablo Christianson MD Cardiology Pablo Christianson MD Cardiology Pablo Christianson MD Cardiology Pablo Christianson MD Cardiology Pablo Christianson MD Cardiology Pablo Christianson MD Cardiology Pablo Christianson MD Cardiology Pablo Christianson MD Cardiology Pablo Christianson MD Cardiology Pablo Christianson MD Cardiology Pablo Christianson MD follow up: H er updated medication list for this problem includes: Aspirin 81 Mg Tabs (Aspirin) ..... One tab. daily Lisinopril 20 Mg Tabs (Lisinopril) ..... One tab. daily Orders: E KG ([id number]-[id number]) BP today: 144/93 P rior BP: 151/88 (02/26/2014) Labs Reviewed: C reat: 0.72 (01/07/2014) Pablo Christianson MD hfu,carotid study: H er updated medication list for this problem includes: Aspirin 81 Mg Tabs (Aspirin) ..... One tab. daily Lisinopril 20 Mg Tabs (Lisinopril) ..... One tab. daily Orders: E KG (CPT-[id number]) Pablo Christianson MD hos follow up: H er updated medication list for this problem includes: Aspirin 81 Mg Tabs (Aspirin) ..... One tab. daily Lisinopril 10 Mg Tabs (Lisinopril) ..... 1 tab daily BP today: 139/83 Pablo Christianson MD Date Name Complete Echo Stress Regadenoson Complete Echo HISTORY OF PROCEDURES Procedure Date Procedure Name Provider Procedure Notes S tatus Complex e/m visit add on Pablo Christianson MD completed EKG Pablo Christianson MD completed EKG Pablo Christianson MD completed EKG Pablo Christianson MD completed EKG Pablo Christianson MD completed EKG Pablo Christianson MD completed Schedule Followup Pablo Christianson MD in 6 mo co mpleted EKG Pablo Christianson MD completed SNOMED-CT: 08743748 Physical Exam, Performed: Pulse Exam of Foot Pablo Christianson MD completed ePrescribe - Check t his box if eRx is used Pablo Christianson MD completed SNOMED-CT: 036229113 208327 Current Medications Documented Pablo Christianson MD completed Stress EKG Eddi Mclean MD completed Regadenoson, 4 units Pablo Christianson MD completed Cardiolite, 2 units Pablo Christianson MD completed SPECT Images Jcaqui Martínez MD completed FVC / MVV with bronchodilator - 36878 Pablo Christianson MD completed BLOOD COUNT HEMOGLOBIN Pablo Christianson MD completed FRC - 66582 Pablo Christianson MD complete d SpO2 - 03591 Pablo Christianson MD complet ed DLCO - 39157 Pablo Christianson MD complet ed SNOMED-CT: 62073254 Physical Exam, Performed: Pulse Exam of Foot Pablo Christianson MD completed EKG Pablo Christianson MD completed SNOMED-CT: 148469705 717330 Current Medications Documented Pablo Christianson MD completed Stress EKG Jaylon Cervantes MD complet ed Regadenoson, 4 units Pablo Christianson MD completed Cardiolite, 2 units Pablo Christianson MD completed SPECT Images Jaylon Cervantes MD compl eted EKG Pablo Christianson MD completed SNOMED-CT: 359679559 289045 Current Medications Documented Pablo Christianson MD completed SNOMED-CT: 07335118 Physical Exam, Performed: Pulse Exam of Foot Pablo Christianson MD completed SNOMED-CT: 083002166 Smoking Cessation Counseling Pablo Christianson MD completed SNOMED-CT: 446464485 576473 Current Medications Documented Pablo Christianson MD completed EKG Pablo Christianson MD completed EKG Pablo Christianson MD completed EKG Pablo Christianson MD completed
--- OUTSIDE RECORDS SUMMARY | 2024-06-26 10:54 | XMS_ITS | Clinical Summary ---
Author Organization [facility] Address [address] [place] [address] Care Team Providers Care Grey Goods Tester Name Role Phone AdrianneEmmett davis Primary Care Provider Allergies No known active allergies Medications atorvastatin (LIPITOR) 40 mg tablet Take 1 tablet (40 mg total) by mouth daily 3 Active fluticasone propion-salmete roL (ADVAIR DISKUS) 250-50 mcg/dose diskus inhaler Inhale 1 puff 2 (two) times a day 9 Active NovoLIN N 100 unit/mL (3 mL) pen for injection ss 3 Active metFORMIN (GLUCOPHAGE) 1,000 mg tablet daily with breakfast [address] (PROTONIX) 40 mg EC tablet Take 1 tablet (40 mg total) by mouth daily 2 Active spironolactone (ALDACTONE) 25 mg tablet Take 1 tablet (25 mg total) by mouth 2 (two) times a day 3 Active zolpidem (AMBIEN) 10 mg tablet TAKE 1 TABLET BY MOUTH TWICE WEEKLY NEEDED FOR INSOMNIA. 3 Active carvediloL (COREG) 6.25 mg tablet TAKE 1 TABLET BY MOUTH EVERY 12 HOURS WITH FOOD 3 Active ferrous sulfate 134 mg (27 mg of elemental iron) tablet daily with breakfast 4 Active losartan (COZAAR) 50 mg tablet Take 1 tablet (50 mg total) by mouth daily 4 Active ascorbic acid (VITAMIN C ORAL) Take by mouth qd Active BD Ultra-Fine Orig Pen Needle 29 gauge x 1/2 needle USE ONE PEN NEEDLE TO INJECT INSULIN TWICE A DAY 4 Active Mounjaro 2.5 mg/0.5 mL pen injector INJECT 1 SYRINGE ONCE A WEEK 4 Active montelukast (SINGULAIR) 10 mg tablet Take 1 tablet (10 mg total) by mouth nightly Active fluticasone propionate (Flonase Allergy Relief) 50 mcg/actuation nasal spray Administer 1 spray into each nostril daily Active Active Problems Problem Noted Date Diagnosed Date Hyperlipidemia 12/09/2023 Type 2 diabetes mellitus 12/09/2023 Stage 1 chronic kidney disease 10/26/2022 Esophageal varices without bleeding (CMS/HCC) Overview (09/06/2022): Added automatically from request for surgery [id number] Cirrhosis of liver with ascites (CMS/HCC) 2022 Overview (08/12/2022): Added automatically from request for surgery [id number] Chest pain, unspecified 01/14/2014 Nicotine dependence, unspecified, uncomplicated 01/14/2014 Chronic obstructive pulmonary disease 05/30/1959 Essential (primary) hypertension 05/30/1959 Immunizations Name Administration Dates Next Due Influenza, Quadrivalent, Hig h Dose, Preservative Free, Intrr 05/25/2022,04/01/2021 Pneumococcal Conjugate Pcv20 05/25/2022 ZOSTER Recombinant 07/06/2022 Surgical History Surgery Date Site/Laterality Comments CHOLECYSTECTOMY CARPAL TUNNEL RELEASE Bilateral HYSTERECTOMY SECTION Medical History Medical History Date Comments Chronic diarrhea Hypertension Hyperlipidemia COPD (chronic obstructive pulmonary disease) (HC C) Type 2 diabetes mellitus (HCC) Liver disease Esophageal varices (HCC) Myocardial infarction (HCC) Family History Medical History Relation Name Comments Stomach cancer Mother pacemaker Mother Relation Name Status Comments Mother Social History Tobacco Use Types Packs/Day Years Used Date Smoking Tobacco: Former Cigarettes Q uit: 2009 Tobacco Cessation:Counseling Given: Not Answered AUDIT-C Answer Date Recorded Q1: How often [...] on file Sexual Orientation Not on file Obstetrics History Last Filed Vital Signs Vital Sign Reading Time Taken Comments Blood Pressure 115/70 02/02/2024 7:41 AM CDT Pulse 94 02/02/2024 7:41 AM CDT Temperature 36.7 ??C (98 ??F) 02/02/2024 7:41 AM CDT Respiratory Rate 19 10/18/2023 10:40 AM CDT Oxygen Saturation 94% 10/18/2023 10:40 AM CDT Inhaled Oxygen Concentration - - Weight 84.9 kg (187 lb 3.2 oz) 02/02/2024 7:41 A M CDT Height 160 cm (5' 3 ) 02/02/2024 7:41 AM CDT Body Mass Index 33.16 02/02/2024 7:41 AM CDT Plan of Treatment Health Maintenance Due Date Last Done Comments Albumin Creatinine Ratio, Urine 1955 Breast Cancer Screening-Mammogram 1955 Depression Screening 1955 Hemoglobin A1C 1955 Osteoporosis Screening-Bone Density Scan 1955 Dilated Eye Exam 1955 Foot Exam 1955 Lipid Panel 1955 DTaP/Tdap/Td Vaccine (1 - Tdap) 1967 Well Visit 65+ 2021 Zoster Vaccine (2 of 2) 08/31/2022 07/06/2022 Covid-19 Vaccine (6 - 2023-2 5 season) 2024 07/06/2022, 09/22/2021, 04/01/2021, Additional history exists Influenza Vaccine (#1) 2024 05/25/2022, 2020 Fall Risk Assessment 10/17/2024 10/18/2023 eGFR 12/08/2024 12/09/2023, 05/2 05/2023, 07/25/2023, Additional history exists Colon Cancer Screening-Colonoscopy 09/02/20322022 Pneumococcal vaccine 65+ Completed 05/25/2022 Hepatitis B Screening Completed 08/12/2022 Hepatitis C Screening Completed 08/12/2022 Procedures Procedure Name Priority Date/Time Associated Diagnosis Comments EGFR Routine 12/09/2023 8:23 AM CDT Cirrhosis of liver with ascites, unspecified hepatic cirrhosis type (HCC) COLONOSCOPY 09/02/2022 9:51 AM CDT HEPATITIS C ANTIBODY Routine 08/12/2022 10:00 AM CDT Cirrhosis of liver with ascites, unspecified hepatic cirrhosis type (HCC) from Last 3 Months or Most Recently Relevant to Health Maintenance Results * eGFR (12/09/2023 8:23 AM CDT) eGFR 65 >=60 mL/min/1. 73 m2 Comment: Interpretive Data Reference Interval Normal ?>/= 90 mL/min/1.73m2 Mildly decreased* ? 60 - 89 mL/min/1.73m2 Mildly to moderately decreased ?45 - 59 mL/min/1.73m2 Moderately to severely decreased ??30 - 44 mL/min/1.73m2 Severely decreased ?15 - 29 mL/min/1.73m2 Kidney Failure ?< 15 ??mL/min/1.73m2 *Relative to young adult level Estimated glomerular filtration rate is determined by the 2020 CKD-EPI equation recommended by the National Kidney Foundation (A Unifying Approach to GFR Estimation: Recommendations of the NKF-ASK Task Force on Reassessing the Inclusion of Race in Diagnosing Kidney Disease, JASN 2020). The CKD-EPI equation should not be used for patients with unstable renal function and has not been validated in children and those over 70. Current interpretive data was last reviewed 2021. Blood 12/09/2023 8:23 AM CDT 12/09/2023 8:44 AM CDT Mariangel Drake MD LAB BLOOD ORDERABLES Final Result Performing Organization Address City/State/[facility] Co de Phone Number [facility] [place] [address] * COLONOSCOPY (09/02/2022 9:51 AM CDT) Anatomical Region Laterality Modality Other Narrative Procedure Note Mayo Juarez MD - 09/02/2022 9:51 AM CDT GI ENDOSCOPY [facility] Patient Name: Ammy Ramesh Procedure Date: 09/02/2022 9:51 AM Date of : 1955 Admit Type: Outpatient Age: 67 Gender: Female Attending MD: Mayo Juarez M.D. Room: [facility] ENDOSCOPY ROOM 3 Note Status: Finalized Procedure: Colonoscopy Indications: High risk colon cancer surveillance: Personalhistory of colonic polyps (per patient), Last colonoscopy 3 years ago Referring MD: Mariangel Drake M.D. Providers: Mayo Juarez M.D. Medicines: Monitored Anesthesia Care Complications: No immediate complications. Estimated Blood Loss: Minimal. Procedure: Pre-Anesthesia Assessment: - Monitored anesthesia care under the supervisionof a LECTURER IN MARKETING was determined to be medically necessary forthis procedure based on review of the patient's medical history, medications, and prior anesthesiahistory. - Immediately prior to administration ofmedications, the patient was re-assessed for adequacy to receive sedatives. - The risks and benefits of the procedure and the sedation options and risks were discussed with the patient. All questions were answered and informed consent was obtained. The benefits, risks and alternatives of theprocedure and sedation were discussed and informed consentwas obtained. All questions were answered. Please referto the signed informed consent document in the medical record. The scope was passed under direct vision.The [id number] endoscope was introduced through the anus and advanced to the cecum, identified by appendiceal orifice and ileocecal valve. The colonoscopy was performed without difficulty. The patient tolerated the procedure well. The bowel preparation used was GoLYTELY via split dose instruction. Bowel prep was administered using asplit dose. The quality of the bowel preparation wasfair. Findings: A 3 mm polyp was found in the descending colon. The polyp wassessile. The polyp was removed with a jumbo cold forceps. Resection andretrieval were complete. A 4 mm polyp was found in the transverse colon. The polyp wassessile. The polyp was removed with a jumbo cold forceps. Resection andretrieval were complete. Multiple small and large-mouthed diverticula were found in thesigmoid colon. Non-bleeding internal hemorrhoids were found during retroflexion. The hemorrhoids were large. The exam was otherwise without abnormality. Impression: - One 3 mm polyp in the descending colon, removedwith a jumbo cold forceps. Resected and retrieved. - One 4 mm polyp in the transverse colon, removedwith a jumbo cold forceps. Resected and retrieved. - Diverticulosis in the sigmoid colon. - Non-bleeding internal hemorrhoids. - The examination was otherwise normal. Recommendation: - Discharge patient to home (ambulatory). - Await pathology results. - Repeat colonoscopy in 3 years for surveillancegiven fair bowel preparation. - Return to referring physician as previously scheduled. - A polyp or polyps were removed during your colonoscopy today. After the pathology result ofthe polyp(s)? ? ?is reviewed, the doctor who performedyour colonoscopy will recommend follow-up colonoscopy to you based on current guidelines by gastroenterology societies: - If only small hyperplastic polyps from the rectumor sigmoid were removed, repeat the colonoscopy in 10 years. - If 1 or 2? ? ?polyps less than 1 cm in size are adenomas, repeat the colonoscopy in 5 years. - If 3 or more polyps are adenomas, repeat the colonoscopy in 3 years. - If there are 10 or more adenomas, repeat the colonoscopy in 1 year. - If any polyp is 10 mm or greater in size, has villous histology or high grade dysplasia,repeat? ? ?the colonoscopy in 3 years. - If a polyp greater than 2 cm was removed with a piecemeal technique, repeat the colonoscopy in 6 months to be certain that there is no residualpolyp. - Sessile serrated polyps are treated like adenomas for surveillance purposes. Electronically signed by Mayo Juarez MD Mayo Juarez M.D. 09/02/2022 10:51:50 AM . Number of Addenda: 0 Note Initiated On: 09/02/2022 9:51 AM Recognized by the [employer] for promoting quality in endoscopy us Mayo Juarez MD ENDOSCOPY PROCEDURES Deisi l Result * Hepatitis C antibody (08/12/2022 10:00 AM CDT) Hep C Ab Nonreactive Nonreactive [facility] Comment:Antibodies to HCV no t detected. Does NOT exclude the possibility of recent exposure to HCV. Current interpretive data was last revised on 22 Blood 08/12/2022 10:0 0 AM CDT 08/12/2022 10:23 AM CDT Mariangel Drake MD LAB MICROBIOLOGY - G ENERAL ORDERABLES Final Result [facility] [place] [address] from Last 3 Months or Most Recently Relevant to Health Maintenance Insurance [employer] Advance Directives For more information, please contact: [phone] * Full Code (Latest Code Status on File) Date Activated Date Inactivated Comments 10/18/2023 9:32 AM 10/18/2023 3:02 PM * Full Code Date Activated Date Inactivated Comments 09/02/2022 8:58 AM 09/02/2022 3:50 PM Care Teams Grey Goods Tester Relationship Specialty Start Date End Date Emmett Mckoy DO PCP - General Family Medicine 08/26/22
--- OUTSIDE RECORDS SUMMARY | 2024-06-26 10:54 | XMS_ITS | Referral Summary ---
Author Organization [facility] Address [address] [place] [address] Care Team Providers Care Knitter Operator Name Role Phone AdrianneEmmett davis Primary Care Provider [phone] Allergies No known active allergies Medications atorvastatin [...] (09/06/2022): Added automatically from request for surgery [id number] Cirrhosis of liver with ascites (CMS/HCC) 2022 Overview (08/12/2022): Added automatically from request for surgery [id number] Chest pain, unspecified 01/14/2014 Nicotine dependence, unspecified, uncomplicated 01/14/2014 Chronic obstructive pulmonary disease 05/30/1959 Essential (primary) hypertension 05/30/1959 Immunizations Name Administration Dates Next Due Influenza, Quadrivalent, Hig h Dose, Preservative Free, Intrr 05/25/2022,04/01/2021 Pneumococcal Conjugate Pcv20 05/25/2022 ZOSTER Recombinant 07/06/2022 Social History Tobacco Use Types Packs/Day Years [...] on file Sexual Orientation Not on file Last Filed Vital Signs Vital Sign Reading [...] 02/02/2024 7:41 AM CDT Plan of Treatment Not on file Procedures Procedure Name Priority Date/Time Associated Diagnosis [...] Inclusion of Race in Diagnosing Kidney Disease, JASMiesha 2020). The CKD-EPI equation should not be used for patients with unstable renal function and has not been validated in children and those over 70. Current interpretive data was last reviewed 2021. Blood 12/09/2023 8:23 AM CDT 12/09/2023 8:44 AM CDT us Mariangel Drake MD LAB BLOOD ORDERABLES Final Result [facility] [place] [address] * COLONOSCOPY (09/02/2022 9:51 AM CDT) Anatomical Region Laterality Modality Other Narrative Procedure Note Mayo Juarez MD - 09/02/2022 9:51 AM CDT GI ENDOSCOPY [facility] Patient Name: Ammy Ramesh Procedure Date: 09/02/2022 9:51 AM Date of : 1955 Admit Type: Outpatient Age: 67 Gender: Female Attending MD: Mayo Juarez M.D. Room: [facility] ENDOSCOPY ROOM 3 Note Status: Finalized Procedure: Colonoscopy Indications: High risk colon cancer surveillance: Personalhistory of colonic polyps (per patient), Last colonoscopy 3 years ago Referring MD: Mariangel Drake M.D. Providers: Mayo Juarez M.D. Medicines: Monitored Anesthesia Care Complications: No immediate complications. Estimated Blood Loss: Minimal. Procedure: Pre-Anesthesia Assessment: - Monitored anesthesia care under the supervisionof a REGULATORY SUBMISSIONS SPECIALIST was determined to be medically necessary forthis [...] The scope was passed under direct vision.The [id number] endoscope was introduced through the anus and [...] On: 09/02/2022 9:51 AM Recognized by the [employer] for promoting quality in endoscopy us Mayo Juarez MD ENDOSCOPY PROCEDURES Deisi l Result * Hepatitis C antibody (08/12/2022 10:00 AM CDT) Hep C Ab Nonreactive Nonreactive [facility] Comment:Antibodies to HCV no t detected. Does NOT exclude the possibility of recent exposure to HCV. Current interpretive data was last revised on 22 Blood 08/12/2022 10:0 0 AM CDT 08/12/2022 10:23 AM CDT us Mariangel Drake MD LAB MICROBIOLOGY - G ENERAL ORDERABLES Final Result [facility] [place] [address] from Last 3 Months or Most Recently Relevant to Health Maintenance Insurance [facility] Advance Directives For more information, please contact: [phone] * Full Code (Latest Code Status on File) Date Activated Date Inactivated Comments 10/18/2023 9:32 AM 10/18/2023 3:02 PM * Full Code Date Activated Date Inactivated Comments 09/02/2022 8:58 AM 09/02/2022 3:50 PM Care Teams Knitter Operator Relationship Specialty Start Date End Date Emmett Mckoy DO PCP - General Family Medicine 08/26/22
[2024-06-26 13:31] LABS: Basophils Percent Auto 0.5 % (0.2-1.2); Eosinophils Absolute Auto 0.2 K/mm3 (0-0.3); Eosinophils Percent Auto 2.8 % (0-4.4); Hematocrit 38.4 % (37.0-47.0); Hemoglobin 12.2 g/dL (12.0-15.0); Immature Granulocyte Absolute 0.02 K/mm3 (0.00-0.031); Immature Granulocyte Percent A 0.3 % (0-0.5); Immature Platelet Fraction Pct 8.6 % (0.9-11.2); Lymphocytes Absolute Auto 0.69 K/mm3 (0.9-3.2); Lymphocytes Percent Auto 11.5 % (18.3-44.2); Mean Corpuscular HGB Conc 31.8 g/dl (32-36); Mean Corpuscular Volume 100.8 fl (80-100); Mean Platelet Volume 12.6 fl (7.4-10.4); Monocytes Absolute Auto 0.6 K/mm3 (0.1-0.6); Monocytes Percent Auto 10.2 % (2.6-8.5); Neutrophils Absolute Auto 4.5 K/mm3 (1.3-6.7); Neutrophils Percent Auto 74.7 % (45.5-73.1); Platelet Count Result 88 k/mm3 (150-375); Red Blood Count 3.81 M/mm3 (4.2-5.4); Red Cell Distribution Width 14.4 % (11.5-14.5)
[2024-06-26 13:57] LABS: Anisocytosis 1+; Burr Cells 1+; Ovalocytes 1+; Platelet Estimate Decreased (Adequate); Schistocytes None Seen
[2024-06-26 14:56] LABS: Vitamin D 25 Hydroxy 31.2 ng/mL
[2024-06-26 15:13] LABS: Alanine Aminotransferase 25 U/L (6-35); Alkaline Phosphatase 101 U/L (38-126); Anion Gap 12 mmol/L (4-12); Aspartate Amino Transferase 34 U/L (14-36); Bilirubin,Total 1.4 mg/dL (0.2-1.3); Blood Urea Nitrogen 15 mg/dL (7-17); Calcium 9.2 mg/dL (8.4-10.2); Carbon Dioxide 25 mmol/L (22-30); Chloride 106 mmol/L (98-107); Cholesterol 99 mg/dL (0-200); Estimated Glomerular Filt Rate > 60; Glucose 97 mg/dL (65-110); HDL Direct 37 mg/dL; Potassium 4.7 mmol/L (3.4-5.0); Sodium 143 mmol/L (137-145); Triglycerides 108 mg/dL (<150)
[2024-06-26 15:17] LABS: Microalbumin Urine Random 18.7 mg/L (0-16.7)
[2024-06-26 15:20] LABS: Creatinine Urine 325.9 mg/dL; MALB Creatinine Ratio 5.7 mg/g (0-30)
[2024-06-26 15:25] LABS: LDL Cholesterol Direct 37 mg/dL
[2024-06-26 18:35] LABS: Hemoglobin A1C 5.4 % (<5.7)
== END 2024-06-26 10:03 | disposition home or self-care (01) ==
PROVIDERS: PCP Nurse Practitioner Family; Visit Provider Nurse Practitioner Family
DX: E55.9 Vitamin D deficiency, unspecified (principal); E11.9 Type 2 diabetes mellitus without complications; I10 Essential (primary) hypertension; E78.5 Hyperlipidemia, unspecified
CPT/HCPCS: 36415; 80053; 80061; 82043; 82306; 83036; 84443; 85025; 85055

== ENCOUNTER 2024-10-03 09:54 | Outpatient (CLI) | payer OTHER, SELFPAY ==
--- NOTE | ~2024-10-03 | MM_ITS ---
EXAMINATION: MM screening [facility] BI w sara HISTORY: Screening TECHNIQUE: Craniocaudal and mediolateral oblique 3-D tomosynthesis images were obtained and synthetic 2-D images were generated. CAD analysis was submitted and interpreted. COMPARISON: Comparison to multiple prior studies sequentially, with oldest reviewed study dated 06/2023. BREAST PARENCHYMAL COMPOSITION: Not dense: There are scattered areas of fibroglandular density. FINDINGS: There is no evidence of suspicious mass, calcification, or architectural distortion to sugg est malignancy in either breast. There has been no suspicious interval change. IMPRESSION: 1. No mammographic evidence of malignancy. 2. Recommend routine screening mammography in one year. BI-RADS Category 1: Negative Reviewed, dictated and finalized at location A.
--- OUTSIDE RECORDS SUMMARY | 2024-10-03 10:35 | XMS_ITS | Clinical Summary ---
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
--- OUTSIDE RECORDS SUMMARY | 2024-10-03 10:35 | XMS_ITS | Encounter Summary ---
Author Organization [facility] Address 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
--- OUTSIDE RECORDS SUMMARY | 2024-10-03 10:36 | XMS_ITS | CONTINUITY OF CARE DOCUMENT ---
Author Name missy, missy Address Unknown Organization [facility] Address [address] [address] [place] [address] Phone [phone] Care Team Providers Care Pyridine Operator Name Role Phone Sammy ZABALA, Pablo Unavailable [phone] CHIRAG READ MD Unavailable ALETHEA CHAMORRO DO Unavailable PROBLEMS Condition Status Date Provider Notes CAD s/p KUMAR prox and distal CX 01/10 - 05/15 inf wall scar active Pablo Christianson MD COPD active Venkat Murphy Diabetes, Type 2 active ? Pablo Christianson MD Hyperlipidemia active ? Pablo Christianson MD Hypertension--echo ef nl, mild MR, 10/2022 active 1959 Pablo Christianson MD Tobacco abuseQuit November 2014 active Pablo mckeon MD CKD active Venkat Murphy Cardiology examination active Venkat Murphy Cirrhosis, nonalcoholic- wit h esophageal varices active Pablo Christianson MD ENCOUNTERS Date Type Provider Location Encounter Diag nosis - In-person encounter Office Visit Pablo Christianson MD [facility] Cardiology examination - In-person encounter Office Visit Pablo Christianson MD [facility] Hypertension--echo ef nl, mild MR, 10/2022 - In-person encounter Office Visit Pablo Christianson MD [facility] COPDCKD - In-person encounter Office Visit Pablo Christianson MD [facility] - In-person encounter Office Visit Pablo Christianson MD [facility] Cirrhosis, nonalcoholic- with esophageal varices - In-person encounter Office Visit Pablo Christianson MD [facility] - In-person encounter Office Visit Pablo Christianson MD [facility] - In-person encounter Office Visit Pablo Christianson MD [facility] - In-person encounter Office Visit Pablo Christianson MD [facility] - In-person encounter Office Visit Pablo Christianson MD [facility] - In-person encounter Office Visit Pablo Christianson MD [facility] - In-person encounter Office Visit Pablo Christianson MD [facility] - In-person encounter Office Visit Pablo Christianson MD [facility] CAD s/p KUMAR prox and distal CX 01/10 - 05/15 inf wall scar - In-person encounter Office Visit Pablo Christianson MD [facility] - In-person encounter Office Visit Pablo Christianson MD [facility] Tobacco abuseQuit November 2014 - In-person encounter Office Visit Pablo Christianson MD [facility] - In-person encounter Office Visit Pablo Christianson MD [facility] - In-person encounter Office Visit Pablo Christianson MD [facility] - In-person encounter Office Visit Pablo Christianson MD [facility] CAD s/p KUMAR prox and distal CX 01/10 - 05/15 inf wall scarCOPDDiabetes, Type 2HyperlipidemiaHyper tension--echo ef nl, mild MR, 10/2022Tobacco abuseQuit November 2014 VITAL SIGNS Date Observation Value Provider Body Mass Index (Ratio) 31.53 kg/m2 Paul Christianson MD blood pressure, diastolic 71 mm[Hg] Shubham bren Pedraza blood pressure, systolic 87 mm[Hg] Jazmin jean Pedraza oxygen saturation, oximetry 97 % [facility] pulse rate 101 /min [facility] blood pressure, cuff size regular [facility] weight E&M 178.0 [lb_av] [facility] height E&M 63 [in_i] [facility] Body Mass Index (Ratio) 31.53 kg/m2 Paul Christianson MD blood pressure, cuff size regular [facility] blood pressure, diastolic 78 mm[Hg] [facility], systolic 127 mm[Hg] [facility] pulse rate 79 /min [facility] respiratory rate E&M 12 /min [facility] oxygen saturation, oximetry 99 % [facility] weight E&M 178 [lb_av] [facility] y height E&M 63 [in_i] [facility] y Body Mass Index (Ratio) 30.64 kg/m2 [...] Paul Christianson MD blood pressure, resting Yes [facility] reese Cabello blood pressure, diastolic 62 mm[Hg] [facility] blood pressure, systolic 140 mm[Hg] [facility] [place] pulse rate 80 /min Maco valladares [...] MD blood pressure, diastolic 80 mm[Hg] [facility], systolic 140 mm[Hg] Jazmin rodriguez Moore oxygen saturation, oximetry 98 % Carey Moore respiratory rate E&M 16 /min Curtis Moore pulse rate 98 /min Curtis Moore weight E&M 202 [lb_av] Carey Moore height E&M 63 [in_i] Curtis Moore Body Mass Index (Ratio) 36.13 kg/m2 Paul Christianson MD blood pressure, cuff size large Ke rri Daisy blood pressure, diastolic 70 mm[Hg] Ke rri Freduenenfdenverer blood pressure, systolic 142 mm[Hg] Everett Villa oxygen saturation, oximetry 98 [...] blood pressure, systolic 146 mm[Hg] Dac ia [place] oxygen saturation, oximetry 94 % Jennifer [place] [...] blood pressure, systolic 138 mm[Hg] Kil jennifer [place] oxygen saturation, oximetry 97 % Curtis Moore respiratory rate E&M 16 /min Carey Moore pulse rate 104 /min Curtis Moore weight E&M 207 [lb_av] Carey Moore height E&M 63 [in_i] Carey Moore blood pressure, diastolic 88 mm[Hg] Me key Christina blood pressure, systolic 151 mm[Hg] Karely miracle Vasquez pulse rate 104 /min Nancy Vasquez oxygen saturation, oximetry 96 % Nancy Vasquez respiratory rate E&M 15 /min Nancy Vasquez Body Mass Index (Ratio) 36.66 kg/m2 Monica valentine Vasquez weight E&M 207 [lb_av] Nancy Vasquez blood pressure, diastolic 94 mm[Hg] Or key Vasquez blood pressure, systolic 153 mm[Hg] Karely rausch Vasquez pulse rate 98 /min Nancy Vasquez oxygen saturation, oximetry 97 % Nancy Vasquez respiratory rate E&M 14 /min Nancy Vasquez Body Mass Index (Ratio) 37.90 kg/m2 Monica valentine Vasquez weight E&M 214 [lb_av] Nancy Vasquez Body Mass Index (Ratio) 35.96 kg/m2 Jeremy Bennett blood pressure, diastolic 93 mm[Hg] An haydee [facility] blood pressure, systolic 144 mm[Hg] Ane vijayas [facility] pulse rate 104 /min [facility] oxygen saturation, oximetry 98 % Montserratatris Donald respiratory rate E&M 18 /min Aneatri s Donald weight E&M 203 [lb_av] Aneatris Donald blood pressure, diastolic 88 mm[Hg] An graceris [facility] blood pressure, systolic 151 mm[Hg] Ane atris Brown Body Mass Index (Ratio) 36.13 kg/m2 Anea cory [facility] pulse rate 114 /min Aneatris Brown oxygen saturation, oximetry 98 % Aneatris [facility] respiratory rate E&M 17 /min Aneatri s Brown weight E&M 204 [lb_av] Aneatris Brown Body Mass Index (Ratio) 36.49 kg/m2 Anea cory [facility] blood pressure, diastolic 83 mm[Hg] [...] Range Interpretation Location platelet count 189 10*3/mm3 [facility] hematocrit, blood 46.2 % [facility] alanine aminotransferase (SGPT), serum 69 1/L [facility] aspartate aminotransferase (SGOT), serum 62 1/L [facility] blood glucose, random 223 mg/dL [facility] creatinine, serum 0.72 mg/dL [facility] Jarod urea nitrogen, blood 21 mg/dL [facility] potassium, serum 4.3 mmol/L [facility] sodium, serum 134 mmol/L [facility] coagulation managed by Janusz Bateman RN international [...] 1 tablet once a day - 06/25 [facility] Calcium 600 + D(3) 600 mg(1,500mg)-200 unit [...] Christianson MD smoking, year quit 2015 Curtis I ngram smoking, date started 1970 Killee n Moore smoking history, tot al pack/year 46 Carey Moore smoking history, tot al pack/day 1/2 Carey Moore cigarette use yes Curtis Moore smoking status Former smoker Carey Ingr am social history reviewed E&M revi [...] Amberly Loreer cigarette use yes Amberly Lenin [facility] smoking status Former smoker Amberly [...] of grandchildren Pablo Christianson MD K anival [place] smoking, date started 1970 Nereida august Moore [...] Donald smoking history, tot al pack/day 1/2 [place] cigarette use yes [place] smoking status Current every day smoker Dalila harris Donald FAMILY HISTORY Family Member Condition First Degree Blood Relative No Known Fam ana History INSURANCE PROVIDERS Payer name Policy type / Coverage type [employer] ID ESSENCE O Other [id number] ADVANCE DIRECTIVES Name Date DISCUSSED - NO DECISION MADE TREATMENT PLAN Date Name Performer [id number],S, Venkat Bainmedza i [id number],S, Venkat Blackwoodza i [id number],S, Venkat Bainmedza i [id number],S, Venkat Bainmedza i [id number],S, Venkat Bainmedza i [id number],S, Venkat Bainmedza i [id number],S, Venkat Bainmedza i [id number],S, Venkat Bainmedza i [id number],S, Venkat Torres i [id number],S, Venkat Torres i [id number],S, Venkat Torres i [id number],S, Venkat Torres i Cardiology:This visi t has [...] 1 puff by mouth twice a day [facility]: H er updated medication list for this problem includes: Atorvastatin 40 Mg Tablet (Atorvastatin) ..... 1 tablet once a day [facility] Card[facility]: H er updated medication list for this problem includes: Mounjaro 10 Mg/0.5 Ml Pen Injector (Tirzepatide) Losartan 50 Mg Tablet (Losartan) ..... Take 1 tablet by mouth once daily Metformin 1,000 Mg Tablet (Metformin) ..... Take 1 tablet twice a day [facility]: H er updated medication list for [...] julian MD Cardiology follow up Toniya Melvin jluian MD Cardiology follow up Toniya Melvin julian [...] ..... One tab. daily Orders: E KG ([id number]) BP today: 144/93 P rior BP: 151/88 (02/26/2014) Labs Reviewed: C reat: 0.72 (01/07/2014) Pablo Christianson MD hfu,carotid study: H er updated medication list for this problem includes: Aspirin 81 Mg Tabs (Aspirin) ..... One tab. daily Lisinopril 20 Mg Tabs (Lisinopril) ..... One tab. daily Orders: E KG ([id number]) Pablo Christianson MD hos follow up: H [...] mpleted EKG Pablo Christianson MD completed SNOMED-CT: 15905610 Physical Exam, Performed: Pulse Exam of Foot Pablo Christianson MD completed ePrescribe - Check t his box if eRx is used Pablo Christianson MD completed SNOMED-CT: 271191426 807910 Current Medications Documented Pablo Christianson MD completed Stress EKG Eddi Mclean MD completed Regadenoson, 4 units Pablo Christianson MD completed Cardiolite, 2 units Pablo Christianson MD completed SPECT Images Jacqui Martínez MD completed FVC / MVV with bronchodilator - 62747 Pablo Christianson MD completed BLOOD COUNT HEMOGLOBIN Pablo Christianson MD completed FRC - 65597 Pablo Christianson MD complete d SpO2 - 29247 Pablo Christianson MD complet ed DLCO - 23534 Pablo Christianson MD complet ed SNOMED-CT: 04277348 Physical Exam, Performed: Pulse Exam of Foot Pablo Christianson MD completed EKG Pablo Christianson MD completed SNOMED-CT: 199397504 650177 Current Medications Documented Pablo Christianson MD completed Stress EKG Jaylon Cervantes MD complet ed Regadenoson, 4 units Pablo Christianson MD completed Cardiolite, 2 units Pablo Christianson MD completed SPECT Images Jaylon Cervantes MD compl eted EKG Pablo Christianson MD completed SNOMED-CT: 349365851 824261 Current Medications Documented Pablo Christianson MD completed SNOMED-CT: 15483839 Physical Exam, Performed: Pulse Exam of Foot Pablo Christianson MD completed SNOMED-CT: 088195822 Smoking Cessation Counseling Pablo Christianson MD completed SNOMED-CT: 845364818 182701 Current Medications Documented Pablo Christianson MD completed EKG Pablo Christianson MD completed EKG Pablo Christianson MD completed EKG Pablo Christianson MD completed
== END 2024-10-03 09:55 | disposition home or self-care (01) ==
LOC: ANHIMG 09:55
PROVIDERS: PCP Nurse Practitioner Family; Visit Provider Nurse Practitioner Family
DX: Z12.31 Encounter for screening mammogram for malignant neoplasm of breast (principal)
CPT/HCPCS: 77063; 77067

== ENCOUNTER 2024-10-09 09:49 | Outpatient (CLI) | payer OTHER, SELFPAY ==
--- NOTE | ~2024-10-09 | DEXA_ITS ---
Bone Density Report Name: AMINTA MONTOYA Age: 69 Sex: Female Ethnicity: White Date of : 1955 Indication: postmenopausal; screening for osteoporosis; height loss; hysterectomy; Referring Provider: JUAN MIRANDA Study: Bone densitometry was performed. Exam Date: October 09, 2024 Accession number: [id number] Bone Density: Region BMD T-score Z-score Classification AP Spine(L1-L4) 0.845 -1.8 0.2 Osteopenia Femoral Neck (Left) 0.641 -1.9 -0.2 Osteopenia Total Hip (Left) 0.798 -1.2 0.2 Osteopenia Femoral Neck (Right) 0.600 -2.2 -0.5 Osteopenia Total Hip (Right) 0.824 -1.0 0.4 Normal Total Hip Mean 0.811 -1.1 0.3 Osteopenia World Health Organization criteria for BMD impression classify patients as: Normal (T-score at or above -1.0), Osteopenia (T-score between -1.0 and -2.5), or Osteoporosis (T-score at or below -2.5). 10-year Fracture Risk(1): Major Osteoporotic Fracture 13% Hip Fracture 2.5% Reported Risk Factors: [place] (), Neck BMD=0.600, BMI=28.0 (1) FRAX(R) Version 3.08. Fracture probability calculated for an untreated patient. Fracture probability may be lower if the patient has received treatment. Clinical Information Provided by Patient: Has used the following medications: HRT (i.e. estrogen/hormone therapy), Vitamin D, Calcium Has the following medical conditions: Hysterectomy Patient maximum height was 65 Menopause Age: 40 No regular weight bearing exercise Does not regularly consume dairy products Drinks caffeinated beverages Onset of menses at age 13 Number of children 4 Impression: The patient has low bone mass, based on the Right Femoral Neck T-score. The patient has an estimated ten-year risk of hip fracture of 2.5% and an estimated ten-year risk of major fracture of 13%, based on the WHO FRAX algorithm. Discussion: BONE DENSITY IS LOW AT ONE OR MORE SKELETAL SITES. This patient's lowest T-score is low at one or more skeletal sites. It meets the World Health Organization's (WHO) criteria for “low bone mass” (T-score between -1.0 and -2.5). The patient's 10-year risk of fracture as calculated by FRAX is less than the threshold where pharmacological therapy is recommended by the National Osteoporosis Foundation (NOF). However, all treatment decisions require clinical judgment and consideration of individual patient factors, including patient preferences, comorbidities, previous drug use, risk factors not captured in the FRAX model (e.g., frailty, falls, vitamin D deficiency, increased bone turnover, interval significant decline in bone density) and possible under or overestimation of fracture risk by FRAX. The patient should follow a healthful lifestyle (good nutrition with adequate calcium and vitamin D, and appropriate weight-bearing exercise). Follow-Up: Consider repeating this study in 2 to 3 years to reassess this patient's status, or sooner if there is some new clinical indication. Reported by: KAYLEY on 10/09/2024 10:34:00 AM. Reviewed, dictated and finalized at location A.
--- OUTSIDE RECORDS SUMMARY | 2024-10-09 09:59 | XMS_ITS | Clinical Summary ---
Author Organization [facility] Address [facility] [place] [address] Care Team Providers Care Firer Glost Kiln Name Role Phone Curly Soto MD Primary Care Provider Allergies No known active [...] injector INJECT 1 SYRINGE ONCE A WEEK Active montelukast (SINGULAIR) 10 mg tablet Take 1 tablet (10 mg total) by mouth nightly Active fluticasone propionate (Flonase Allergy Relief) 50 mcg/actuation nasal spray Administer 1 spray into each nostril daily Active Active Problems Problem Noted Date Diagnosed Date Hyperlipidemia 12/09/2023 Type 2 diabetes mellitus 12/09/2023 Stage 1 chronic kidney disease 10/26/2022 Esophageal varices without bleeding 09/06/2022 Overview (09/06/2022): Added automatically from request for surgery [id number] Cirrhosis of liver with ascites 08/12/2022 Overview (08/12/2022): Added automatically from request for surgery [id number] Chest pain, unspecified 01/14/2014 Nicotine dependence, unspecified, uncomplicated 01/14/2014 Chronic obstructive pulmonary disease 05/30/1959 Essential (primary) hypertension 05/30/1959 Encounters Date Type Department Care Team Description 08/07/2024 Results Follow-Up [facility] [address] [place] [address] Mariangel Drake MD 08/03/2024 Results Follow-Up [facility] [address] [facility] 12th [place] [address] [place] [address] Mariangel Drake MD 08/02/2024 1:35 PM WEB PRESSMAN Lab [facility] ([facility]) [address] [place] [id number] Cirrhosis of liver with ascites, unspecified hepatic cirrhosis type (HCC) 08/02/2024 10:20 AM WEB PRESSMAN Office Visit [facility] 12th [place] [address] [place] [address] Mariangel Drake MD Cirrhosis of liver with ascites, unspecified hepatic cirrhosis type (HCC) (Primary Dx) 08/02/2024 8:49 AM WEB PRESSMAN - 08/02/2024 11:59 PM WEB PRESSMAN Hospital Encounter [facility] ([facility]) [address] [place] [id number] Cirrhosis of liver with ascites, unspecified hepatic cirrhosis type (HCC) Discharge Disposition: Discharge to home or self care from Last 3 Months Immunizations Immunization Administration Dates Next Due Influenza, Quadrivalent, Hig [...] Sign Reading Time Taken Comments Blood Pressure 109/71 08/02/2024 9:53 AM WEB PRESSMAN Pulse 83 08/02/2024 9:53 AM WEB PRESSMAN Temperature 36.4 C (97.6 F) 08/02/2024 9:53 AM WEB PRESSMAN Respiratory Rate 19 10/18/2023 10:40 AM CDT Oxygen Saturation 94% 10/18/2023 10:40 AM CDT Inhaled Oxygen Concentration - - Weight 74.4 kg (164 lb) 08/02/2024 9:53 AM WEB PRESSMAN Height 160 cm (5' 3 ) 08/02/2024 9:53 AM WEB PRESSMAN Body Mass Index 29.05 08/02/2024 9:53 AM WEB PRESSMAN Plan of Treatment Health Maintenance Due Date [...] 2024 07/06/2022, 09/22/2021, 04/01/2021, Additional history exists Fall Risk Assessment 10/17/2024 10/18/2023 Influenza Vaccine (Season Ended) 2025 05/25/20 22, 04/01/2021 eGFR 08/02/2025 08/02/2024, 11/27, 10/18/2023, Additional history exists Colon Cancer Screening-Colonoscopy 09/02/20322022 Pneumococcal vaccine 65+ Completed 05/25/2022 Hepatitis B Screening Completed 08/12/2022 Hepatitis C Screening Completed 08/12/2022 Procedures Procedure Name Priority Date/Time Associated Diagnosis Comments EGFR Routine 08/02/2024 11:27 AM WEB PRESSMAN Cirrhosis of liver with ascites, unspecified hepatic cirrhosis type (HCC) DIFFERENTIAL AUTO Routine 08/02/2024 11: 27 AM WEB PRESSMAN Cirrhosis of liver with ascites, unspecified hepatic cirrhosis type (HCC) [id number], TUMOR MARKER Routine 08/02/2024 11:27 AM WEB PRESSMAN Cirrhosis of liver with ascites, unspecified hepatic cirrhosis type (HCC) BILIRUBIN, DIRECT Routine 08/02/2024 11: 27 AM WEB PRESSMAN Cirrhosis of liver with ascites, unspecified hepatic cirrhosis type (HCC) CBC WITH AUTO DIFFERENTIAL Routine 08/02/2024 11:27 AM WEB PRESSMAN Cirrhosis of liver with ascites, unspecified hepatic cirrhosis type (HCC) COMPREHENSIVE METABOLIC PANEL Routine 08/02/2024 11:27 AM WEB PRESSMAN Cirrhosis of liver with ascites, unspecified hepatic cirrhosis type (HCC) PROTIME-INR Routine 08/02/2024 11:27 AM WEB PRESSMAN Cirrhosis of liver with ascites, unspecified hepatic cirrhosis type (HCC) US LIVER W COMPLETE DOPPLER Schedule Routine, Read Routine (OP Routine) 08/02/2024 9:40 AM WEB PRESSMAN Cirrhosis of liver with ascites, unspecified hepatic cirrhosis type (HCC) COLONOSCOPY 09/02/2022 9:51 AM CDT HEPATITIS C ANTIBODY Routine 08/12/2022 10:00 AM CDT Cirrhosis of liver with ascites, unspecified hepatic cirrhosis type (HCC) from Last 3 Months or Most Recently Relevant to Health Maintenance Results * eGFR (08/02/2024 11:27 AM WEB PRESSMAN) eGFR 61 >=60 mL/min/1. 73 m2 Comment: Interpretive Data Reference Interval Normal >/= 90 mL/min/1.73m2 Mildly decreased* 60 - 89 mL/min/1.73m2 Mildly to moderately decreased 45 - 59 mL/min/1.73m2 Moderately to severely decreased 30 - 44 mL/min/1.73m2 Severely decreased 15 - 29 mL/min/1.73m2 Kidney Failure < 15 mL/min/1.73m2 *Relative to young adult level Estimated glomerular filtration rate is determined by the 2020 CKD-EPI equation recommended by the National Kidney Foundation (A Unifying Approach to GFR Estimation: Recommendations of the NKF-ASK Task Force on Reassessing the Inclusion of Race in Diagnosing Kidney Disease, HITESH 2020). The CKD-EPI equation should not be used for patients with unstable renal function and has not been validated in children and those over 70. Current interpretive data was last reviewed 2021. Blood 08/02/2024 11:2 7 AM WEB PRESSMAN 08/02/2024 12:30 PM WEB PRESSMAN us Mariangel Drake MD LAB BLOOD ORDERABLES Final Result [facility] Department [place] [address] * (ABNORMAL) Differential, auto (08/02/2024 11:27 AM WEB PRESSMAN) Neutrophil abs 2.7 1.5 - 6.5 K/cumm Imm gran abs 0.0 0.0 - 0.1 K/cumm [facility] Lymphocyte abs 0.5(L) 0.8 - 3.3 K/[facility]umm [facility] Monocyte abs 0.5 0.2 - 0.8 K/cumm [facility] Eosinophil abs 0.1 0.0 - 0.5 K/cumm [facility] Basophil abs 0.0 0.0 - 0.1 K/cumm [facility] Neutrophil pct 68.8 % [facility] Comment: Interpretive Data Percent cell count reference ranges are not reported, since discordance with absolute values may lead to misinterpretation of CBC data. Current Interpretive Data was last revised on 2017. Imm gran pct 0.5 % [facility] Comment: Interpretive Data Percent cell count reference ranges are not reported, since discordance with absolute values may lead to misinterpretation of CBC data. Current Interpretive Data was last revised on 2017. Lymphocyte pct 13.5 % [facility] Comment: Interpretive Data Percent cell count reference ranges are not reported, since discordance with absolute values may lead to misinterpretation of CBC data. Current Interpretive Data was last revised on 2017. Monocyte pct 13.0 % [facility] Comment: Interpretive Data Percent cell count reference ranges are not reported, since discordance with absolute values may lead to misinterpretation of CBC data. Current Interpretive Data was last revised on 2017. Eosinophil pct 3.4 % [facility] Comment: Interpretive Data Percent cell count reference ranges are not reported, since discordance with absolute values may lead to misinterpretation of CBC data. Current Interpretive Data was last revised on 2017. Basophil pct 0.8 % [facility] Comment: Interpretive Data Percent cell count reference ranges are not reported, since discordance with absolute values may lead to misinterpretation of CBC data. Current Interpretive Data was last revised on 2017. Blood 08/02/2024 11:2 7 AM WEB PRESSMAN 08/02/2024 12:26 PM WEB PRESSMAN us Mariangel Drake MD LAB BLOOD ORDERABLES Final Result [facility] Department [place] [address] * (ABNORMAL) CBC with auto differential (08/02/2024 11:27 AM WEB PRESSMAN) WBC 3.9 3.8 - 9.9 K/cumm Hgb 11.2(L) 11.9 - 15.5 g/dL [facility] Hct 34.1(L) 35.6 - 45.5 % [facility] Plt 78(L) 150 - 400 K/cumm [facility] MPV 12.3 9.1 - 12.3 fL [facility] RBC 3.47(L) 3.90 - 5.20 M/cumm [facility] MCV 98.3(H) 81.3 - 96.4 fL [facility] MCH 32.3 27.1 - 33.3 pg [facility] MCHC 32.8 32.3 - 35.7 g/dL [facility] RDW CV 14.2 11.1 - 14.9 % [facility] RDW SD 50.5(H) 35.7 - 48.1 fL [facility] NRBC abs 0.00 0.00 - 0.01 K/cumm [facility] Blood 08/02/2024 11:2 7 AM WEB PRESSMAN 08/02/2024 12:26 PM WEB PRESSMAN Mariangel Drake MD LAB BLOOD ORDERABLES Final Result Performing Organization Address [facility] de Phone Number [facility] [place] [address] * [id number], Tumor Marker (08/02/2024 11:27 AM WEB PRESSMAN) alpha Fetoprotein <2.0 <=8.3 ng/mL Comment: Interpretive Data The Cordell AFP assay procedure was used. Results from different manufacturers or methods may not be comparable. Serial testing should be performed using the same method. 0-1 month. AFP concentrations may reach or exceed 100,000 ng/mL after depending on gestational age and weight. 1-3 months 50 1000 ng/ml 3-6 months 10 500 ng/ml 6-12 months 3.0 100 ng/ml >1 year 0.0 8.3 ng/ml References Tsuchicitlaly Y. et al. J. Ped Surg 1978;13:155-156 Tabitha S. et al. Clin Chem Lab Med 2018;57:783-797 Terry Trivedi et al. Clin Chem 2014;5725-6259. Current interpretive data was last revised 2022. Blood 08/02/2024 11:2 7 AM WEB PRESSMAN 08/02/2024 12:26 PM WEB PRESSMAN Mariangel Drake MD LAB BLOOD ORDERABLES Final Result Performing Organization Address [facility] Co de Phone Number [facility] [place] [address] * (ABNORMAL) Protime-INR (08/02/2024 11:27 AM WEB PRESSMAN) PT 14.3(H) 9.7 - 13.0 sec INR 1.32(H) 0.90 - 1.20 [facility] Comment: Interpretive data Oral anticoagulant therapeutic ranges: Venous thromboembolism prophylaxis or treatment: 2.0-3.0 CARDIOLOGY Standard range: 2.0-3.0 High-intensity range: 2.5-3.5 Refer to indication-specific guidelines for appropriate target ranges for prosthetic heart valve replacement. Current interpretive data was last revised on 2019. Blood 08/02/2024 11:2 7 AM WEB PRESSMAN 08/02/2024 12:26 PM WEB PRESSMAN Mariangel Drake MD LAB BLOOD ORDERABLES Final Result Performing Organization Address City/[facility]/ZIP Co de Phone Number [facility] Department [place] [address] * Bilirubin, direct (08/02/2024 11:27 AM WEB PRESSMAN) Pathologist [facility] Bilirubin, direct 0.3 0.1 - 0.3 mg/dL Blood 08/02/2024 11:2 7 AM WEB PRESSMAN 08/02/2024 12:26 PM WEB PRESSMAN Mariangel Drake MD LAB BLOOD ORDERABLES Final Result Performing Organization Address City/[facility] Co de Phone Number [facility] Department [place] [address] * (ABNORMAL) Comprehensive metabolic panel (08/02/2024 11:27 AM WEB PRESSMAN) Sodium 143 135 - 145 mmol/L Potassium, pl 4.2 3.3 - 4.9 mmol/L [facility] Chloride 107 97 - 110 mmol/L [facility] CO2 27 22 - 32 mmol/L [facility] Anion gap 9 2 - 15 mmol/L [facility] BUN 21 6 - 25 mg/dL [facility] Creatinine 1.00 0.60 - 1.10 mg/dL [facility] Glucose 64(L) 70 - 199 mg/dL [facility] Comment: Interpretive Data Fasting glucose >/= 126 mg/dl is diagnostic for diabetes. Fasting is defined as no caloric intake for at least 8 hours. Fasting glucose between 100 mg/dl to 125 mg/dl is diagnostic of prediabetes. In a patient with classic symptoms of hyperglycemia or hyperglycemic crisis, a random glucose >/= 200 mg/dl is diagnostic for diabetes. In the absence of unequivocal hyperglycemia, results should be confirmed by repeat testing. The classification and Diagnosis of Diabetes Diabetes Care 2021; 46: S19-S40. Current interpretive data was last revised 2022. Calcium 8.9 8.5 - 10.3 mg/dL [facility] Bilirubin, total 0.9 0.1 - 1.2 mg/dL [facility] Protein, pl 6.5 6.5 - 8.5 g/dL [facility] Albumin 3.5 3.5 - 5.0 g/dL [facility] Alk phos 97 40 - 130 Units/L [facility] ALT 17 7 - 45 Units/L [facility] AST 25 10 - 45 Units/L [facility] Blood 08/02/2024 11:2 7 AM WEB PRESSMAN 08/02/2024 12:26 PM WEB PRESSMAN us Mariangel Drake MD LAB BLOOD ORDERABLES Final Result [facility] Department [place] [address] * US Liver W Complete Doppler (C) (08/02/2024 9:40 AM WEB PRESSMAN) Anatomical Region Laterality Modality Abdomen N/A Ultrasound 08/02/2024 9:44 AM WEB PRESSMAN Impressions 08/02/2024 9:59 AM WEB PRESSMAN 1. Cirrhotic liver morphology. 2. Splenomegaly, measuring 18.9 cm that is not substantially changed from prior MRI dated 07/25/2023. 3. US LI-RADS Screening/Surveillance Category: US 1 - Negative. 4. Visualization Score: A: No or minimal limitations in liver visualization. 5. No Doppler evidence of thrombosis. US LI-RADS 2023 REFERENCE: US Category: US-1 Negative: No ultrasound evidence of hepatocellular carcinoma (HCC). US-2 Subthreshold: Observation<10 mm in diameter, not definitely benign. US-3 Positive: Observation detected that may warrant multi-phase contrast-enhanced imaging. Observation >/= 10 mm in diameter, not definitely benign, including areas of parenchymal distortion OR new thrombus in vein. Visualization Score: A. No or minimal limitations: Limitations, if any, are unlikely to meaningfully affect sensitivity. The liver is homogenous or minimally heterogenous with minimal beam attenuation or shadowing, and is visualized in near entirety. B. Moderate limitations: Limitations may obscure small masses. The liver is moderately heterogenous with moderate beam attenuation or shadowing, and some portions of the liver or diaphragm are not visualized. C. Severe limitations: Limitations significantly lower sensitivity for focal liver lesions. The liver is severely heterogeneous with severe beam attenuation or shadowing, and the majority (>50%) of the liver or diaphragm is not visualized. Consider alternative surveillance imaging modality depending on risk factors. Dictated by: Fito Blackmon M.D. The radiology attending physician has personally reviewed this study, and had reviewed and/or edited this written report and agrees with it. Electronically signed by: Yashira Mcfarland M.D. Narrative 08/02/2024 9:59 AM WEB PRESSMAN EXAMINATION: 1. LIVER SONOGRAM 2. LIVER DOPPLER HISTORY: 69-year-old with cirrhosis. Surveillance ultrasound in patient at high risk for hepatocellular carcinoma. COMPARISON: Multiple, most recently 02/02/2024 FINDINGS: LIVER: Visualization Score: A: No or minimal limitations in liver visualization. Morphology/Parenchyma/contour: Atrophy of the right hemiliver with enlargement of the caudate lobe, similar to prior. The echotexture is coarse. The echogenicity is normal. There is surface nodularity. Liver observations: No focal liver observations. Ascites: No ascites. Other: Splenomegaly, measuring 18.9 cm that is not substantially changed from prior MRI dated 07/25/2023. Dilated common bile duct measuring up to 1.4 cm, similar to prior MRI from 07/05/2023. LIVER DOPPLER: Color Doppler and spectral analysis were used to evaluate the hepatic vasculature. Portal veins: The main portal vein as well as the right and left branches have hepatopetal (antegrade) flow. No thrombosis is visualized. Hepatic veins: The middle, right, and left hepatic veins are patent with antegrade flow. Portosplenic confluence: The portosplenic confluence is patent with appropriate directional flow. IVC: The inferior vena cava at the level of the liver is patent with appropriate directional flow. Hepatic artery: The visualized main hepatic artery is patent with antegrade flow. Other: None. Procedure Note Yashira Mcfarland MD - 08/02/2024 EXAMINATION: 1. LIVER SONOGRAM 2. LIVER DOPPLER HISTORY: 69-year-old with cirrhosis. Surveillance ultrasound in patient at high risk for hepatocellular carcinoma. COMPARISON: Multiple, most recently 02/02/2024 FINDINGS: LIVER: Visualization Score: A: No or minimal limitations in liver visualization. Morphology/Parenchyma/contour: Atrophy of the right hemiliver with enlargement of the caudate lobe, similar to prior. The echotexture is coarse. The echogenicity is normal. There is surface nodularity. Liver observations: No focal liver observations. Ascites: No ascites. Other: Splenomegaly, measuring 18.9 cm that is not substantially changed from prior MRI dated 07/25/2023. Dilated common bile duct measuring up to 1.4 cm, similar to prior MRI from 07/05/2023. LIVER DOPPLER: Color Doppler and spectral analysis were used to evaluate the hepatic vasculature. Portal veins: The main portal vein as well as the right and left branches have hepatopetal (antegrade) flow. No thrombosis is visualized. Hepatic veins: The middle, right, and left hepatic veins are patent with antegrade flow. Portosplenic confluence: The portosplenic confluence is patent with appropriate directional flow. IVC: The inferior vena cava at the level of the liver is patent with appropriate directional flow. Hepatic artery: The visualized main hepatic artery is patent with antegrade flow. Other: None. IMPRESSION: 1. Cirrhotic liver morphology. 2. Splenomegaly, measuring 18.9 cm that is not substantially changed from prior MRI dated 07/25/2023. 3. US LI-RADS Screening/Surveillance Category: US 1 - Negative. 4. Visualization Score: A: No or minimal limitations in liver visualization. 5. No Doppler evidence of thrombosis. US LI-RADS 2023 REFERENCE: US Category: US-1 Negative: No ultrasound evidence of hepatocellular carcinoma (HCC). US-2 Subthreshold: Observation<10 mm in diameter, not definitely benign. US-3 Positive: Observation detected that may warrant multi-phase contrast-enhanced imaging. Observation >/= 10 mm in diameter, not definitely benign, including areas of parenchymal distortion OR new thrombus in vein. Visualization Score: A. No or minimal limitations: Limitations, if any, are unlikely to meaningfully affect sensitivity. The liver is homogenous or minimally heterogenous with minimal beam attenuation or shadowing, and is visualized in near entirety. B. Moderate limitations: Limitations may obscure small masses. The liver is moderately heterogenous with moderate beam attenuation or shadowing, and some portions of the liver or diaphragm are not visualized. C. Severe limitations: Limitations significantly lower sensitivity for focal liver lesions. The liver is severely heterogeneous with severe beam attenuation or shadowing, and the majority (>50%) of the liver or diaphragm is not visualized. Consider alternative surveillance imaging modality depending on risk factors. Dictated by: Fito Blackmon M.D. The radiology attending physician has personally reviewed this study, and had reviewed and/or edited this written report and agrees with it. Electronically signed by: Yashira Mcfarland M.D. us Mariangel Drake MD IMG US PROCEDURES Fi nal Result * COLONOSCOPY (09/02/2022 9:51 AM CDT) Anatomical Region Laterality Modality Other Narrative Procedure Note Mayo Juarez MD - 09/02/2022 9:51 AM CDT [facility] ENDOSCOPY [facility] Patient Name: Ammy Ramesh Procedure Date: 09/02/2022 9:51 AM Date of : 1955 Admit Type: Outpatient Age: 67 Gender: Female Attending MD: Mayo Juarez M.D. Room: [facility] ENDOSCOPY ROOM 3 Note Status: Finalized Procedure: Colonoscopy Indications: High risk colon cancer surveillance: Personalhistory of colonic polyps (per patient), Last colonoscopy 3 years ago Referring MD: Mariangel Drake M.D. Providers: Mayo Juarez M.D. Medicines: Monitored Anesthesia Care Complications: No immediate complications. Estimated Blood Loss: Minimal. Procedure: Pre-Anesthesia Assessment: - Monitored anesthesia care under the supervisionof a MOVIE THEATER USHER was determined to be medically necessary forthis [...] The scope was passed under direct vision.The [id number] endoscope was introduced through the anus and [...] colonoscopy today. After the pathology result ofthe polyp(s) is reviewed, the doctor who performedyour colonoscopy will recommend follow-up colonoscopy to you based on current guidelines by gastroenterology societies: - If only small hyperplastic polyps from the rectumor sigmoid were removed, repeat the colonoscopy in 10 years. - If 1 or 2 polyps less than 1 cm in size are adenomas, repeat the colonoscopy in 5 years. - If 3 or more polyps are adenomas, repeat the colonoscopy in 3 years. - If there are 10 or more adenomas, repeat the colonoscopy in 1 year. - If any polyp is 10 mm or greater in size, has villous histology or high grade dysplasia,repeat the colonoscopy in 3 years. - If a [...] On: 09/02/2022 9:51 AM Recognized by the [place] [employer] for promoting quality in endoscopy us Mayo Juarez MD ENDOSCOPY PROCEDURES Deisi l Result * Hepatitis C antibody (08/12/2022 10:00 AM CDT) Hep C Ab Nonreactive Nonreactive [facility] Comment:Antibodies to HCV no t detected. Does NOT exclude the possibility of recent exposure to HCV. Current interpretive data was last revised on 22 Blood 08/12/2022 10:0 0 AM CDT 08/12/2022 10:23 AM CDT us Mariangel Drake MD LAB MICROBIOLOGY - G ENERAL ORDERABLES Final Result [facility] Department [place] [address] from Last 3 Months or Most Recently Relevant to Health Maintenance Insurance [facility] [id number] Advance Directives For more information, please contact: [phone] * Full Code (Latest Code Status on File) Date Activated Date Inactivated Comments 10/18/2023 9:32 AM 10/18/2023 3:02 PM * Full Code Date Activated Date Inactivated Comments 09/02/2022 8:58 AM 09/02/2022 3:50 PM Care Teams Firer Glost Kiln Relationship Specialty Start Date End Date Curly Soto MD [facility] [address] [address] PCP - General Family Practice 07/25/24
--- OUTSIDE RECORDS SUMMARY | 2024-10-09 09:59 | XMS_ITS | Encounter Summary ---
Author Organization [facility] Address [address] [place] [address] Phone Care Team Providers Care Physician Primary Care Sports Medicine Name Role Phone Emmett Mckoy DO Primary Care Provider [phone] Curly Soto MD Primary Care Provider Encounter Details Date Type Department Care Team (Late st Contact Info) Description 11/20/2023 Orders Only [facility] Scanning, Provider Social History Tobacco Use [...] documented as of this encounter Care Teams Physician Primary Care Sports Medicine Relationship Specialty Start Date End Date Emmett Mckoy DO PCP - General Family Medicine 08/26/22 07/24/24 Curly Soto MD [id number] [facility] [address] [address] PCP - General Family Practice 07/25/24 documented as of this encounter
--- OUTSIDE RECORDS SUMMARY | 2024-10-09 09:59 | XMS_ITS | CONTINUITY OF CARE DOCUMENT ---
Author Name missy, missy Address Unknown Organization [facility] Address [address] [place] [address] Phone [phone] Care Team Providers Care Livestock Nutrition Territory Manager Name Role Phone Sammy ZABALA, Pablo Unavailable [phone] DONOVAN READ MD Unavailable ALETHEA CHAMORRO DO Unavailable [...] In-person encounter Office Visit Pablo Christianson MD [facility] Cardiology examination - In-person encounter Office Visit Pablo Christianson MD [facility] Hypertension--echo ef nl, mild MR, 10/2022 - In-person encounter Office Visit Pablo Chritsianson MD [facility] COPDCKD - In-person encounter Office Visit Pablo Christianson MD [facility] - In-person encounter Office Visit Pablo Christianson MD [facility] Cirrhosis, nonalcoholic- with esophageal varices - In-person encounter Office Visit Pablo Christianson MD [facility] - In-person encounter Office Visit Pablo Christianson MD [facility] - In-person encounter Office Visit Pablo Christianson MD [facility] - In-person encounter Office Visit Pablo Christianson MD [facility] - In-person encounter Office Visit Pablo Christianson MD [facility] - In-person encounter Office Visit Pablo Christianson MD [facility] - In-person encounter Office Visit Pablo Christianson MD [facility] - In-person encounter Office Visit Pablo Christianson MD [facility] CAD s/p KUMAR prox and distal CX 01/10 - 05/15 inf wall scar - In-person encounter Office Visit Pablo Christianson MD [facility] - In-person encounter Office Visit Pablo Christianson MD [facility] Tobacco abuseQuit November 2014 - In-person encounter Office Visit Pablo Christianson MD [facility] - In-person encounter Office Visit Pablo Christianson MD [facility] - In-person encounter Office Visit Pablo Christianson MD [facility] - In-person encounter Office Visit Pablo Christianson MD [facility] CAD s/p KUMAR prox and distal CX 01/10 - 05/15 inf wall scarCOPDDiabetes, Type 2HyperlipidemiaHyper tension--echo ef nl, mild MR, 10/2022Tobacco abuseQuit November 2014 VITAL SIGNS Date Observation Value Provider Body Mass Index (Ratio) 31.53 kg/m2 Paul Christianson MD blood pressure, diastolic 71 mm[Hg] Shubham bren Pedraza blood pressure, systolic 87 mm[Hg] Jazmin jean Pedraza oxygen saturation, oximetry 97 % [facility] pulse rate 101 /min [facility] blood pressure, cuff size regular [facility] Pedraza weight E&M 178.0 [lb_av] [facility] height E&M 63 [in_i] [facility] Body Mass Index (Ratio) 31.53 kg/m2 Paul Christianson MD blood pressure, cuff size regular [facility] blood pressure, diastolic 78 mm[Hg] [facility], systolic 127 mm[Hg] [facility] pulse rate 79 /min [facility] respiratory rate E&M 12 /min [facility] oxygen saturation, oximetry 99 % [facility] weight E&M 178 [lb_av] [facility] height E&M 63 [in_i] [facility] Body Mass Index (Ratio) 30.64 kg/m2 Paul Christianson MD blood pressure, diastolic 61 mm[Hg] Lyn Nobles blood pressure, systolic 91 mm[Hg] Kimberly Nobles oxygen saturation, oximetry 97 % Elizabeth Nobles pulse rate 84 /min Elizabeth Nobles weight E&M 173 [lb_av] Elizabeth Nobles blood pressure, cuff size large An akira Nobles height E&M 63 [in_i] Elizabeth Giuliano [...] blood pressure, systolic 130 mm[Hg] María a Iros respiratory rate E&M 17 /min Jacqueline Si [...] Ruiz blood pressure, diastolic 76 mm[Hg] Cy nthidalila Ruiz blood pressure, systolic 140 mm[Hg] Lily thidalila Ruiz oxygen saturation, oximetry 96 % Aysha Ruiz respiratory rate E&M 18 /min Aysha Ruiz pulse rate 95 /min Aysha Stormbel l weight E&M 204 [lb_av] Aysha Campbel l height E&M 63 [in_i] Aysha Campbel l Body Mass Index (Ratio) 35.96 kg/m2 Paul Christianson MD blood pressure, resting Yes [facility] reese [place] blood pressure, diastolic 62 mm[Hg] [facility] [place] blood pressure, systolic 140 mm[Hg] [facility] lukas [place] pulse rate 80 /min Maco valladares [...] MD blood pressure, cuff size regular Cy ntmiyaa Ruiz blood pressure, diastolic 80 mm[Hg] Candelario Ruiz blood pressure, systolic 148 mm[Hg] Lily Ruiz respiratory rate E&M 18 /min Aysha Ruiz oxygen saturation, oximetry 98 % Aysha Ruiz pulse rate 108 /min Aysha rea weight E&M 207 [lb_av] Aysha Yun l height E&M 63 [in_i] Aysha Yun l Body Mass Index (Ratio) 35.78 kg/m2 Paul Christianson MD blood pressure, diastolic 80 mm[Hg] [facility], systolic 140 mm[Hg] Jazmin rodriguez Moore oxygen saturation, oximetry 98 % Curtis Moore respiratory rate E&M 16 /min [place] pulse rate 98 /min Curtis Moore weight E&M 202 [lb_av] [place] height E&M 63 [in_i] Curtis Moore Body Mass Index (Ratio) 36.13 kg/m2 Paul Christianson MD blood pressure, cuff size large Ke rri Lore blood pressure, diastolic 70 mm[Hg] Ke rri Freduenenfdenverer blood pressure, systolic 142 mm[Hg] Everett Villa oxygen saturation, oximetry 98 % Amberly Villa respiratory rate E&M 22 /min Amberly oliveraenenfelder pulse rate 107 /min Amberly Maulik lder weight E&M 204 [lb_av] Amberly Gruenenfe lder height E&M 63 [in_i] Amberly Carmelneyolae lder Body Mass Index (Ratio) 36.03 kg/m2 Paul Christianson MD blood pressure, cuff size large Da rakel [place] blood pressure, diastolic 76 mm[Hg] Da rakel [...] Amberly Villa respiratory rate E&M 18 /min Ambrely padgett pulse rate 106 /min Amberly Willingham er weight E&M 208 [lb_av] Amberly Willingham er height E&M 63 [in_i] Amberly Maulik er Body Mass Index (Ratio) 36.66 kg/m2 Paul Christianson MD blood pressure, diastolic 70 mm[Hg] Ki carlos Moore blood pressure, systolic 138 mm[Hg] Kil jennifer [place] oxygen saturation, oximetry 97 % Curtis Moore respiratory rate E&M 16 /min [place] pulse rate 104 /min Curtis Moore weight E&M 207 [lb_av] [place] height E&M 63 [in_i] [place] blood pressure, diastolic 88 mm[Hg] Me key Vasquez blood pressure, systolic 151 mm[Hg] Karely miracle Vasquez pulse rate 104 /min Nancy Vasquez oxygen saturation, oximetry 96 % Nancy Vasquez respiratory rate E&M 15 /min Nancy Vasquez Body Mass Index (Ratio) 36.66 kg/m2 Monica valentine Vasquez weight E&M 207 [lb_av] Nancy Vasquez blood pressure, diastolic 94 mm[Hg] Ar key Vasquez blood pressure, systolic 153 mm[Hg] Karely rausch Vasquez pulse rate 98 /min Nancy Vasquez oxygen saturation, oximetry 97 % Nancy Vasquez respiratory rate E&M 14 /min Nancy Vasquez Body Mass Index (Ratio) 37.90 kg/m2 Monica valentine Vasquez weight E&M 214 [lb_av] Nancy Vasquez Body Mass Index (Ratio) 35.96 kg/m2 Anea cory [facility] blood pressure, diastolic 93 mm[Hg] An haydee [facility] blood pressure, systolic 144 mm[Hg] Ane vijayas [facility] pulse rate 104 /min Montserratatris [facility] oxygen saturation, oximetry 98 % Montserratatris [facility] respiratory rate E&M 18 /min Aneatri s Donald weight E&M 203 [lb_av] Aneatris Donald blood pressure, diastolic 88 mm[Hg] An eatris [facility] blood pressure, systolic 151 mm[Hg] Ane atris [facility] Body Mass Index (Ratio) 36.13 kg/m2 Anea cory [facility] pulse rate 114 /min Aneatris Brown oxygen saturation, oximetry 98 % Aneatris [facility] respiratory rate E&M 17 /min Aneatri s Brown weight E&M 204 [lb_av] Aneatris Brown Body Mass Index (Ratio) 36.49 kg/m2 Anea cory [facility] blood pressure, diastolic 83 mm[Hg] An eatris Donald blood pressure, systolic 139 mm[Hg] Montserrat Bennett pulse rate 103 /min Sloan Bennett oxygen saturation, oximetry 97 % Montserratatryeny Bennett respiratory rate E&M 18 /min Celso Bennett weight E&M 206 [lb_av] Sloan Bennett height E&M 63 [in_i] Sloan Bennett ALLERGIES No Known Drug Allergies RESULTS Date Observation Value Provider Reference Range Interpretation Location platelet count 189 10*3/mm3 [facility] Jarod hematocrit, blood 46.2 % [facility] Jarod alanine aminotransferase (SGPT), serum 69 1/L [facility] Jarod aspartate aminotransferase (SGOT), serum 62 1/L [facility] blood glucose, random 223 mg/dL [facility] creatinine, serum 0.72 mg/dL [facility] Jarod urea nitrogen, blood 21 mg/dL [facility] potassium, serum 4.3 mmol/L [facility] sodium, serum 134 mmol/L [facility] coagulation managed by Janusz Bateman RN international normalized ratio (INR) 1.1 Amberly Villa Normal prothrombin time (patient) 11.3 s Amberly Villa HISTORY OF MEDICATION USE Medication Status Instructions Dates Provider Indications Com karl Mounjaro 10 mg/0.5 mL pen injector active Venkat Ahmedzai losartan 50 mg tablet active Take 1 tablet by mouth once daily 11/20 Venkat Ahmedzai losartan 50 mg tablet completed Take 1 tablet by mouth once a day Take 1 tablet by mouth once daily 11/26 - 11/20ret carvedilol 6.25 mg tablet active Venkat Ahmedzai [...] TABLET completed 1 tab daily - 01/01 Jenniefr Porter atorvastatin 40 mg tablet active 1 tablet once a day Pablo Christianson MD NITROLINGUAL 0.4 MG/SPRAY TRANSLINGUAL SOLUTION completed One spray as needed for chest discomfort 01/14 - Nancy Vasquez montelukast 10 mg tablet completed 1 tablet once a day - 06/25 Venkat [facility] Calcium 600 + D(3) 600 mg(1,500mg)-200 unit tablet completed 1 tablet twice a day - 06/15 Pablo Christianson MD LISINOPRIL 20 MG ORAL TABLET completed ONE TAB. DAILY 02/26 - 12/05 Pablo Christianson MD SIMVASTATIN 40 MG ORAL TABLET completed 1 tab daily - 01/01 Aneatryeny Bennett JANUMET 50-1000 MG ORAL TABLET completed [...] illiams smoking history, tot al pack/year 47 Elizabethdalila Nobles smoking history, tot al pack/day 1/2 Elizabeth Giuliano cigarette use yes Elizabeth Giuliano smoking status Former smoker Elizabethdalila Beard s social history reviewed E&M revi ewed - no changes required Venkat Murphy social history E&M S moking History: Althea pond is a former smoker. Venkat Murphy smoking, year quit 2015 Amberly moore smoking, date started 1971 Amberly Villa smoking history, tot al pack/year 47 Amberly Loreer smoking history, tot al pack/day 1/2 Amberly Villa cigarette use yes Amberly garcia smoking status Former smoker Amberly harmaner social history reviewed E&M revi ewed - no changes required Venkat Torreskhalif social history reviewed E&M revi ewed - no changes required Pablo Christianson MD smoking, year quit 2015 Aysha moseley smoking, date started 1971 Eduardo Ruiz smoking history, tot al pack/year 47 Aysha Joseph smoking history, tot al pack/day 1/2 Aysha Joseph cigarette use yes Aysha Arianna peter smoking status Former smoker Aysha Storm worrell social history reviewed E&M revi ewed - no changes required Pablo Christianson MD social history E&M S moking History: P atient is a former smoker. Alethea Sims social [...] worrell social history E&M S moking History: P dejah is a former smoker. Pablo Christianson MD [...] Moore smoking history, tot al pack/day 1/2 [place] Moore cigarette use yes [place] Moore smoking status Former smoker Curtis Ingr am social history reviewed E&M revi ewed - no changes required Pablo Christianson MD social history E&M S moking History: Althea pond is a former smoker. Pablo Christianson MD smoking, year quit 2015 Amberly Julio moore smoking, date started 1971 Amberly Villa smoking history, tot al pack/year 47 Amberly Grlouisanfelder smoking history, tot al pack/day 1/2 Amberly Loreer cigarette use yes Amberly Lenin elder smoking status Former smoker Amberly Ibarralouisa harmaner social history E&M S moking History: Althea pond is a former smoker. Pablo Christianson MD social history reviewed E&M revi ewed - no changes required Pablo Christianson MD smoking, year quit 2015 Jennifer Jalil s smoking, date started 1971 Jennifer Charlotte smoking history, tot al pack/year [...] 1/2 Amberly Phelpsdenverer cigarette use yes Amberly Phelps radha smoking status Former smoker Amberly acevesdenverer social history reviewed E&M revi ewed - no changes required Pablo Christianson MD smoking, year quit 2015 Curtis ojeda number of grandchildren Pablo Christianson MD K anival [place] smoking, date started 1970 Nereida august Moore [...] Christianson MD smoking, date started 1970 Emily Bennett smoking history, tot al pack/day 1/2 [facility] Donald cigarette use yes [facility] smoking status Current every day smoker Dalila harris Donald FAMILY HISTORY Family Member Condition First Degree Blood Relative No Known Fam ana History INSURANCE PROVIDERS Payer name Policy type / Coverage type [place] [employer] party ID [employer] Other [id number] ADVANCE DIRECTIVES Name Date DISCUSSED - NO DECISION MADE TREATMENT PLAN Date Name Performer [id number],S, Venkat Ahmedza i [id number],S, Venkat Bainmedza i [id number],S, Venkat Ahmedza i [id number],S, Venkat Ahmedza i [id number],S, Venkat Ahmedza i [id number],S, Venkat Ahmedza i [id number],S, Venkat Ahmedza i [id number],S, Venkat Ahmedza i [id number],S, Venkat Torres i [id number],S, Venkat Torres i [id number],S, Venkat Torres i [id number],S, Venkat Torres i Cardiology:This visi t has [...] 1 puff by mouth twice a day Venkatakira Torres Cardiology: H er updated medication list for this problem includes: Atorvastatin 40 Mg Tablet (Atorvastatin) ..... 1 tablet once a day Venkat carrollkhalif Cardiology: H er updated medication list for this problem includes: Mounjaro 10 Mg/0.5 Ml Pen Injector (Tirzepatide) Losartan 50 Mg Tablet (Losartan) ..... Take 1 tablet by mouth once daily Metformin 1,000 Mg Tablet (Metformin) ..... Take 1 tablet twice a day Venkat carroll Cardiology: H er updated medication list for [...] Alethea Nacht Cardiology Alethea Nacht Cardiology Alethea Nacht Cardiology follow up Pablo julian MD Cardiology [...] to use ProAir prior to exertion. Pablo Christainson MD Cardiology Follow up : B P [...] ..... One tab. daily Orders: E KG ([id number]) BP today: 144/93 P rior BP: 151/88 (02/26/2014) Labs Reviewed: C reat: 0.72 (01/07/2014) Pablo Christianson MD hfu,carotid study: H er updated medication list for [id number]|2024-10-09 09:59:00|2024-10-09 09:58:00|XMS_ITS|BKG DAEMON|External Medical Summaries|[id number]|" Referral Summary Created on: October 09, 2024 Ammy Ramesh : 1955 Sex: Female Author Organization [facility] Address [address] [place] [address] Care Team Providers Care Livestock Nutrition Territory Manager Name Role Phone Curly Soto MD Primary Care Provider Encounters Date Type Department Care Team Description 08/07/2024 Results Follow-Up [facility] Gastroenterology [address] [place] [address] Mariangel Drake MD 08/03/2024 Results Follow-Up [facility] Gastroenterology [address] [place] [address] [place] [address] Mariangel Drake MD 08/02/2024 1:35 PM PERSONNEL GENERALIST MANAGER Lab [facility] [address] [place] [address] Cirrhosis of liver with ascites, unspecified hepatic cirrhosis type (HCC) 08/02/2024 8:49 AM PERSONNEL GENERALIST MANAGER - 08/02/2024 11:59 PM PERSONNEL GENERALIST MANAGER Hospital Encounter [facility] [address] [place] [address] Cirrhosis of liver with ascites, unspecified hepatic cirrhosis type (HCC) Discharge Disposition: Discharge to home or self care 08/02/2024 10:20 AM PERSONNEL GENERALIST MANAGER Office Visit [facility] Gastroenterology [address] [place] [address] [place] [id number] Mariangel Drake MD Cirrhosis of liver with ascites, unspecified hepatic cirrhosis type (HCC) (Primary Dx) from Last 3 Months Allergies No known active allergies Medications atorvastatin [...] (09/06/2022): Added automatically from request for surgery [id number] Cirrhosis of liver with ascites 08/12/2022 Overview (08/12/2022): Added automatically from request for surgery [id number] Chest pain, unspecified 01/14/2014 Nicotine dependence, unspecified, uncomplicated 01/14/2014 Chronic obstructive pulmonary disease 05/30/1959 Essential (primary) hypertension 05/30/1959 Immunizations Immunization Administration Dates Next Due Influenza, [...] Comments Blood Pressure 109/71 08/02/2024 9:53 AM PERSONNEL GENERALIST MANAGER Pulse 83 08/02/2024 9:53 AM PERSONNEL GENERALIST MANAGER Temperature 36.4 C (97.6 F) 08/02/2024 9:53 AM PERSONNEL GENERALIST MANAGER Respiratory Rate 19 10/18/2023 10:40 AM CDT Oxygen Saturation 94% 10/18/2023 10:40 AM CDT Inhaled Oxygen Concentration - - Weight 74.4 kg (164 lb) 08/02/2024 9:53 AM PERSONNEL GENERALIST MANAGER Height 160 cm (5' 3 ) 08/02/2024 9:53 AM PERSONNEL GENERALIST MANAGER Body Mass Index 29.05 08/02/2024 9:53 AM PERSONNEL GENERALIST MANAGER Plan of Treatment Not on file Procedures Procedure Name Priority Date/Time Associated Diagnosis Comments EGFR Routine 08/02/2024 11:27 AM PERSONNEL GENERALIST MANAGER Cirrhosis of liver with ascites, unspecified hepatic cirrhosis type (HCC) DIFFERENTIAL AUTO Routine 08/02/2024 11: 27 AM PERSONNEL GENERALIST MANAGER Cirrhosis of liver with ascites, unspecified hepatic cirrhosis type (HCC) [id number], TUMOR MARKER Routine 08/02/2024 11:27 AM PERSONNEL GENERALIST MANAGER Cirrhosis of liver with ascites, unspecified hepatic cirrhosis type (HCC) BILIRUBIN, DIRECT Routine 08/02/2024 11: 27 AM PERSONNEL GENERALIST MANAGER Cirrhosis of liver with ascites, unspecified hepatic cirrhosis type (HCC) CBC WITH AUTO DIFFERENTIAL Routine 08/02/2024 11:27 AM PERSONNEL GENERALIST MANAGER Cirrhosis of liver with ascites, unspecified hepatic cirrhosis type (HCC) COMPREHENSIVE METABOLIC PANEL Routine 08/02/2024 11:27 AM PERSONNEL GENERALIST MANAGER Cirrhosis of liver with ascites, unspecified hepatic cirrhosis type (HCC) PROTIME-INR Routine 08/02/2024 11:27 AM PERSONNEL GENERALIST MANAGER Cirrhosis of liver with ascites, unspecified hepatic cirrhosis type (HCC) US LIVER W COMPLETE DOPPLER Schedule Routine, Read Routine (OP Routine) 08/02/2024 9:40 AM PERSONNEL GENERALIST MANAGER Cirrhosis of liver with ascites, unspecified hepatic cirrhosis type (HCC) COLONOSCOPY 09/02/2022 9:51 AM CDT HEPATITIS C ANTIBODY Routine 08/12/2022 10:00 AM CDT Cirrhosis of liver with ascites, unspecified hepatic cirrhosis type (HCC) from Last 3 Months or Most Recently Relevant to Health Maintenance Results * eGFR (08/02/2024 11:27 AM PERSONNEL GENERALIST MANAGER) eGFR 61 >=60 mL/min/1. 73 m2 Comment: [...] reviewed 2021. Blood 08/02/2024 11:2 7 AM PERSONNEL GENERALIST MANAGER 08/02/2024 12:30 PM PERSONNEL GENERALIST MANAGER us Mariangel Drake MD LAB BLOOD ORDERABLES Final Result [facility] Department [place] [address] * (ABNORMAL) Differential, auto (08/02/2024 11:27 AM PERSONNEL GENERALIST MANAGER) Neutrophil abs 2.7 1.5 - 6.5 K/cumm Imm gran abs 0.0 0.0 - 0.1 K/cumm [facility] Lymphocyte abs 0.5(L) 0.8 - 3.3 K/cumm [facility] Monocyte abs 0.5 0.2 - 0.8 K/cumm [facility] Eosinophil abs 0.1 0.0 - 0.5 K/cumm [facility] Basophil abs 0.0 0.0 - 0.1 K/cumm [facility] Neutrophil pct 68.8 % [facility] Comment: Interpretive Data Percent cell count reference ranges are not reported, since discordance with absolute values may lead to misinterpretation of CBC data. Current Interpretive Data was last revised on 2017. Imm gran pct 0.5 % [facility] Comment: Interpretive Data Percent cell count reference ranges are not reported, since discordance with absolute values may lead to misinterpretation of CBC data. Current Interpretive Data was last revised on 2017. Lymphocyte pct 13.5 % [facility] Comment: Interpretive Data Percent cell count reference ranges are not reported, since discordance with absolute values may lead to misinterpretation of CBC data. Current Interpretive Data was last revised on 2017. Monocyte pct 13.0 % [facility] Comment: Interpretive Data Percent cell count reference ranges are not reported, since discordance with absolute values may lead to misinterpretation of CBC data. Current Interpretive Data was last revised on 2017. Eosinophil pct 3.4 % [facility] Comment: Interpretive Data Percent cell count reference ranges are not reported, since discordance with absolute values may lead to misinterpretation of CBC data. Current Interpretive Data was last revised on 2017. Basophil pct 0.8 % [facility] Comment: Interpretive Data Percent cell count reference ranges are not reported, since discordance with absolute values may lead to misinterpretation of CBC data. Current Interpretive Data was last revised on 2017. Blood 08/02/2024 11:2 7 AM PERSONNEL GENERALIST MANAGER 08/02/2024 12:26 PM PERSONNEL GENERALIST MANAGER us Mariangel Drake MD LAB BLOOD ORDERABLES Final Result [facility] Department [place] [address] * (ABNORMAL) CBC with auto differential (08/02/2024 11:27 AM PERSONNEL GENERALIST MANAGER) [facility] WBC 3.9 3.8 - 9.9 K/cumm Hgb 11.2(L) 11.9 - 15.5 g/dL [facility] Hct 34.1(L) 35.6 - 45.5 % [facility] Plt 78(L) 150 - 400 K/cumm [facility] MPV 12.3 9.1 - 12.3 fL [facility] RBC 3.47(L) 3.90 - 5.20 M/cumm [facility] MCV 98.3(H) 81.3 - 96.4 fL [facility] MCH 32.3 27.1 - 33.3 pg [facility] MCHC 32.8 32.3 - 35.7 g/dL [facility] RDW CV 14.2 11.1 - 14.9 % [facility] RDW SD 50.5(H) 35.7 - 48.1 fL [facility] NRBC abs 0.00 0.00 - 0.01 K/cumm [facility] Blood 08/02/2024 11:2 7 AM PERSONNEL GENERALIST MANAGER 08/02/2024 12:26 PM PERSONNEL GENERALIST MANAGER Mariangel Drake MD LAB BLOOD ORDERABLES Final Result [facility] [place] [address] * [id number], Tumor Marker (08/02/2024 11:27 AM PERSONNEL GENERALIST MANAGER) [facility] alpha Fetoprotein <2.0 <=8.3 ng/mL Comment: Interpretive [...] ng/ml >1 year 0.0 8.3 ng/ml References Bennett Y. et al. J. Ped Surg 1978;13:155-156 Tabitha Avila et al. Clin Chem Lab Med 2018;57:783-797 Terry Trivedi et al. Clin Chem 2014;8598-5755. Current interpretive data was last revised 2022. Blood 08/02/2024 11:2 7 AM PERSONNEL GENERALIST MANAGER 08/02/2024 12:26 PM PERSONNEL GENERALIST MANAGER Mariangel Drake MD LAB BLOOD ORDERABLES Final Result Performing Organization Address City/[facility] Co de Phone Number [facility] [place] [address] * (ABNORMAL) Protime-INR (08/02/2024 11:27 AM PERSONNEL GENERALIST MANAGER) PT 14.3(H) 9.7 - 13.0 sec INR 1.32(H) 0.90 - 1.20 [facility] Comment: Interpretive data Oral anticoagulant therapeutic ranges: Venous thromboembolism prophylaxis or treatment: 2.0-3.0 CARDIOLOGY Standard range: 2.0-3.0 High-intensity range: 2.5-3.5 Refer to indication-specific guidelines for appropriate target ranges for prosthetic heart valve replacement. Current interpretive data was last revised on 2019. Blood 08/02/2024 11:2 7 AM PERSONNEL GENERALIST MANAGER 08/02/2024 12:26 PM PERSONNEL GENERALIST MANAGER Mariangel Drake MD LAB BLOOD ORDERABLES Final Result Performing Organization Address [facility] Co de Phone Number [facility] [place] [employer] [place] [address] * Bilirubin, direct (08/02/2024 11:27 AM PERSONNEL GENERALIST MANAGER) Bilirubin, direct 0.3 0.1 - 0.3 mg/dL Blood 08/02/2024 11:2 7 AM PERSONNEL GENERALIST MANAGER 08/02/2024 12:26 PM PERSONNEL GENERALIST MANAGER Mariangel Drake MD LAB BLOOD ORDERABLES Final Result [facility] Department [place] [address] * (ABNORMAL) Comprehensive metabolic panel (08/02/2024 11:27 AM PERSONNEL GENERALIST MANAGER) Pathologist [facility] Sodium 143 135 - 145 mmol/L Potassium, pl 4.2 3.3 - 4.9 mmol/L [facility] Chloride 107 97 - 110 mmol/L [facility] CO2 27 22 - 32 mmol/L [facility] Anion gap 9 2 - 15 mmol/L [facility] BUN 21 6 - 25 mg/dL [facility] Creatinine 1.00 0.60 - 1.10 mg/dL [facility] Glucose 64(L) 70 - 199 mg/dL [facility] Comment: Interpretive Data Fasting glucose >/= 126 [...] 2022. Calcium 8.9 8.5 - 10.3 mg/dL [facility] Bilirubin, total 0.9 0.1 - 1.2 mg/dL [facility] Protein, pl 6.5 6.5 - 8.5 g/dL [facility] Albumin 3.5 3.5 - 5.0 g/dL [facility] Alk phos 97 40 - 130 Units/L [facility] ALT 17 7 - 45 Units/L [facility] AST 25 10 - 45 Units/L [facility] Blood 08/02/2024 11:2 7 AM PERSONNEL GENERALIST MANAGER 08/02/2024 12:26 PM PERSONNEL GENERALIST MANAGER us Mariangel Drake MD LAB BLOOD ORDERABLES Final Result [facility] Department [place] [address] * US Liver W Complete Doppler (C) (08/02/2024 9:40 AM PERSONNEL GENERALIST MANAGER) Anatomical Region Laterality Modality Abdomen N/A Ultrasound 08/02/2024 9:44 AM PERSONNEL GENERALIST MANAGER Impressions 08/02/2024 9:59 AM PERSONNEL GENERALIST MANAGER 1. Cirrhotic liver morphology. 2. Splenomegaly, measuring [...] Yashira Mcfarland M.D. Narrative 08/02/2024 9:59 AM PERSONNEL GENERALIST MANAGER EXAMINATION: 1. LIVER SONOGRAM 2. LIVER DOPPLER [...] it. Electronically signed by: Yashira Mcfarland M.D. Mariangel Drake MD [facility] PROCEDURES Fi nal Result * COLONOSCOPY (09/02/2022 9:51 AM CDT) Anatomical Region Laterality Modality Other Narrative Procedure Note Mayo Juarez MD - 09/02/2022 9:51 AM CDT [facility] Patient Name: Ammy Ramesh Procedure Date: 09/02/2022 9:51 AM Date of : 1955 Admit Type: Outpatient Age: 67 Gender: Female Attending MD: Mayo Juarez M.D. Room: [facility] ENDOSCOPY ROOM 3 Note Status: Finalized Procedure: Colonoscopy Indications: High risk colon cancer surveillance: Personalhistory of colonic polyps (per patient), Last colonoscopy 3 years ago Referring MD: Mariangel Drake M.D. Providers: Mayo Juarez M.D. Medicines: Monitored Anesthesia Care Complications: No immediate complications. Estimated Blood Loss: Minimal. Procedure: Pre-Anesthesia Assessment: - Monitored anesthesia care under the supervisionof a UTILITY ARBORIST was determined to be medically necessary forthis [...] The scope was passed under direct vision.The [id number] endoscope was introduced through the anus and [...] On: 09/02/2022 9:51 AM Recognized by the [employer] for promoting quality in endoscopy us Mayo Juarez MD ENDOSCOPY PROCEDURES Deisi l Result * Hepatitis C antibody (08/12/2022 10:00 AM CDT) Hep C Ab Nonreactive Nonreactive [facility] Comment:Antibodies to HCV no t detected. Does NOT exclude the possibility of recent exposure to HCV. Current interpretive data was last revised on 22 Blood 08/12/2022 10:0 0 AM CDT 08/12/2022 10:23 AM CDT us Mariangel Drake MD LAB MICROBIOLOGY - G ENERAL ORDERABLES Final Result [facility] Department [place] [address] from Last 3 Months or Most Recently Relevant to Health Maintenance Insurance [facility] Advance Directives For more information, please contact: [phone] * Full Code (Latest Code Status on File) Date Activated Date Inactivated Comments 10/18/2023 9:32 AM 10/18/2023 3:02 PM * Full Code Date Activated Date Inactivated Comments 09/02/2022 8:58 AM 09/02/2022 3:50 PM Care Teams Livestock Nutrition Territory Manager Relationship Specialty Start Date End Date Curly Soto MD [address] [place] [address] [place] [address] PCP - General Family Practice 07/25/24 "
--- OUTSIDE RECORDS SUMMARY | 2024-10-09 09:59 | XMS_ITS | Clinical Summary ---
Author Organization [facility] Address [address] Attn: Epic Prelude ADT [place] [address] Care Team Providers Care Nut Dehydrator Operator Name Role Phone Unavailable Primary Care Provider Unavailabl e Social History Tobacco Use Types Packs/Day Years Used Date Smoking Tobacco: Never Assessed Comments Unknown Sex and Gender Information Value Date Recorded Sex Assigned at Not on file Legal Sex Female 4:18 AM CORPORATE ASSOCIATE Gender Identity Not on file Sexual Orientation [...]
--- OUTSIDE RECORDS SUMMARY | 2024-10-09 09:59 | XMS_ITS | Encounter Summary ---
Author Organization [facility] Address [address] [place] [address] Care Team Providers Care Radio Electrician Name Role Phone Unavailable Primary Care Provider [...] on file Legal Sex Female 4:18 AM OPTICAL MANAGER Gender Identity Not on file Sexual Orientation Not on file documented as of this encounter Plan of Treatment Not on file documented as of this encounter Visit Diagnoses Diagnosis Other screening mammogram- Primary documented in this encounter
== END 2024-10-09 09:50 | disposition home or self-care (01) ==
PROVIDERS: PCP Nurse Practitioner Family; Visit Provider Nurse Practitioner Family
DX: M85.89 Other specified disorders of bone density and structure, multiple sites (principal); Z78.0 Asymptomatic menopausal state; Z13.820 Encounter for screening for osteoporosis
CPT/HCPCS: 77080

== ENCOUNTER 2025-01-01 12:52 | Outpatient (CLI) | payer OTHER, SELFPAY ==
[2025-01-01 19:10] LABS: Alanine Aminotransferase 21 U/L (6-35); Albumin Level 4.0 g/dL (3.5-5.1); Alkaline Phosphatase 96 U/L (38-126); Anion Gap 6 mmol/L (4-12); Aspartate Amino Transferase 36 U/L (14-36); Bilirubin,Total 2.2 mg/dL (0.2-1.3); Blood Urea Nitrogen 22 mg/dL (7-17); Calcium 9.7 mg/dL (8.4-10.2); Carbon Dioxide 26 mmol/L (22-30); Chloride 104 mmol/L (98-107); Cholesterol 104 mg/dL (0-200); Estimated Glomerular Filt Rate 58; Glucose 86 mg/dL (65-110); HDL Direct 41 mg/dL; Magnesium 1.4 mg/dL (1.6-2.3); Potassium 4.8 mmol/L (3.4-5.0); Sodium 136 mmol/L (137-145); Total Protein 6.7 g/dL (6.3-8.2); Triglycerides 81 mg/dL (<150)
[2025-01-01 19:29] LABS: Hematocrit 39.5 % (37.0-47.0); Hemoglobin 12.6 g/dL (12.0-15.0); Immature Granulocyte Percent A 0.4 % (0-0.5); Immature Platelet Fraction Pct 6.1 % (0.9-11.2); Lymphocytes Absolute Auto 0.72 K/mm3 (0.9-3.2); Mean Corpuscular HGB Conc 31.9 g/dl (32-36); Mean Corpuscular Hemoglobin 32.0 pg (26-34); Mean Corpuscular Volume 100.3 fl (80-100); Nucleated Red Blood Cells Absolute Auto 0.000 K/mm3 (0.0-0.012); Nucleated Red Blood Cells Perc 0.0 % (0.0-0.2); Platelet Count Result 88 k/mm3 (150-375); Red Blood Count 3.94 M/mm3 (4.2-5.4); White Blood Count 5.2 K/mm3 (4.5-10.0)
[2025-01-01 19:46] LABS: Thyroid Stimulating Hormone Reflex 1.500 uIU/mL (0.465-4.68)
[2025-01-01 19:52] LABS: Hemoglobin A1C 5.4 % (<5.7)
[2025-01-01 20:04] LABS: Vitamin B12 707.0 pg/mL (239-931)
== END 2025-01-01 12:53 | disposition home or self-care (01) ==
LOC: ANHGOSHLAB 12:52
PROVIDERS: PCP Family Medicine; Visit Provider Nurse Practitioner Family
DX: E55.9 Vitamin D deficiency, unspecified (principal); I10 Essential (primary) hypertension; E11.9 Type 2 diabetes mellitus without complications
CPT/HCPCS: 36415; 80053; 80061; 82306; 82607; 83036; 83735; 84443; 85025; 85055

== ENCOUNTER 2025-04-08 10:13 | Outpatient (CLI) | payer OTHER, SELFPAY ==
--- OUTSIDE RECORDS SUMMARY | 2025-04-08 10:55 | XMS_ITS | Encounter Summary ---
Author Organization [facility] Address [address] [place] [address] Care Team Providers Care Claim Administrator Name Role Phone Unavailable Primary Care Provider [...] on file Legal Sex Female 4:18 AM DENSITOMETRIST Gender Identity Not on file Sexual Orientation Not on file documented as of this encounter Plan of Treatment Not on file documented as of this encounter Visit Diagnoses Diagnosis Other screening mammogram- Primary documented in this encounter
--- OUTSIDE RECORDS SUMMARY | 2025-04-08 10:55 | XMS_ITS | Encounter Summary ---
Author Organization [facility] Address [address] [place] [address] Phone Care Team Providers Care Marine Service Manager Name Role Phone Emmett Mckoy DO Primary Care Provider Curly Soto MD Primary Care Provider Encounter [...] documented as of this encounter Care Teams Marine Service Manager Relationship Specialty Start Date End Date Emmett Mckoy DO PCP - General Family Medicine 08/26/22 07/24/24 Curly Soto MD [address] [place] [address] [place] [address] PCP - General Family Practice 07/25/24 documented as of this encounter
--- OUTSIDE RECORDS SUMMARY | 2025-04-08 10:55 | XMS_ITS | Clinical Summary ---
Author Organization [facility] Address [address] Attn: Epic Prelude ADT [place] [address] Care Team Providers Care Med Surg Rn Name Role Phone Unavailable Primary Care Provider Unavailabl e Social History Tobacco Use Types Packs/Day Years Used Date Smoking Tobacco: Never Assessed Comments Unknown Sex and Gender Information Value Date Recorded Sex Assigned at Not on file Legal Sex Female 4:18 AM POWER SYSTEM DISPATCHER Gender Identity Not on file Sexual Orientation [...] 2006 OSTEOPOROSIS SCREENING 2021 INFLUENZA VACCINE (#1) 2024 RSV VACCINE (60+ or ) (1 - 1-dose 75+ series) 2031
--- OUTSIDE RECORDS SUMMARY | 2025-04-08 10:55 | XMS_ITS | Clinical Summary ---
Author Organization [facility] Address [address] [place] [address] Care Team Providers Care Cabin Furnishings Installer Name Role Phone Curly Soto MD Primary [...] 1 spray into each nostril daily Active HumaLOG 100 unit/mL pen for injection 5 Active Dexcom G7 Security Director misc as directed 5 Active Dexcom G7 Sensor device THREE TIMES DAILY AND NEEDED 5 Active Active Problems Problem Noted Date Diagnosed Date Hyperlipidemia 12/09/2023 Type 2 diabetes mellitus 12/09/2023 Stage 1 chronic kidney disease 10/26/2022 Esophageal varices without bleeding 09/06/2022 Overview (09/06/2022): Added automatically from request for surgery [id number] Cirrhosis of liver with ascites 08/12/2022 Overview (08/12/2022): Added automatically from request for surgery [id number] Chest pain, unspecified 01/14/2014 Nicotine dependence, unspecified, uncomplicated 01/14/2014 Chronic obstructive pulmonary disease 05/30/1959 Essential (primary) hypertension 05/30/1959 Encounters Date Type Department Care Team Description 02/04/2025 11:33 AM CDT Anesthesia Event [facility] [address] [address] Yasmine Tellez MD 02/04/2025 11:00 AM CDT - 02/04/2025 11:30 AM CDT Surgery [facility] [address] [address] Jac Olson MD ESOPHAGOGASTRODUODENOSCOPY 02/04/2025 10:17 AM CDT - 02/04/2025 12:21 PM CDT Hospital Encounter [facility] [address] [facility] [address] [place] [address] Jac Olson MD Discharge Disposition: Discharge to home or self care 02/04/2025 8:47 AM CDT - 02/04/2025 11:59 PM CDT Hospital Encounter [facility] [address] [place] [address] Cirrhosis of liver with asci walt, unspecified hepatic cirrhosis type (HCC) Discharge Disposition: Discharge to home or self care from Last 3 Months Immunizations Immunization Administration Dates Next Due Influenza, Quadrivalent, Hig h Dose, Preservative Free, Intrr 05/25/2022,04/01/2021 Pneumococcal Conjugate Pcv20 05/25/2022 ZOSTER Recombinant 07/06/2022 Surgical History Surgery Date Site/Laterality Comments CHOLECYSTECTOMY CARPAL TUNNEL RELEASE Bilateral HYSTERECTOMY SECTION CATARACT EXTRACTION, BILATERAL UPPER GASTROINTESTINAL ENDOSCOPY COLONOSCOPY Medical History Medical History Date Comments Chronic diarrhea Hypertension Hyperlipidemia COPD (chronic obstructive pulmonary disease) Type 2 diabetes mellitus Liver disease Esophageal varices Myocardial infarction (HCC) Family History Medical History Relation Name Comments Stomach cancer Mother pacemaker Mother Relation Name Status Comments Mother Social History Tobacco Use Types Packs/Day Years Used Date Smoking Tobacco: Former Cigarettes Q uit: 2009 Tobacco Cessation:Counseling Given: Not Answered Alcohol Use Standard Drinks/Week Comments Never 0 (1 standard drink = 0.6 oz pur e alcohol) AUDIT-C Answer Date Recorded Q1: How often do you have a drink containing alcohol? Never 02/04/2025 Q2: How many drinks containi ng alcohol do you have on a typical day when you are drinking? Patient does not drink Q3: How often do you have si x or more drinks on one occasion? Never 02/04/2025 Personal Safety Answer Date Recorded Have you ever been in or are you currently in a harmful physical or emotional relationship or is someone making you feel afraid or unsafe? Denies 02/04/2025 Comments No Sex and Gender Information Value Date Recorded Sex Assigned at Not on file Legal Sex Female 11:51 AM CDT Gender Identity Not on file Sexual Orientation Not on file Last Filed Vital Signs Vital Sign Reading Time Taken Comments Blood Pressure 94/81 02/04/2025 12:07 PM CDT Pulse 95 02/04/2025 12:07 PM CDT Temperature 36.7 C (98.1 F) 02/04/2025 11:48 AM CDT Respiratory Rate 16 02/04/2025 12:07 PM CDT Oxygen Saturation 99% 02/04/2025 12:07 PM CDT Inhaled Oxygen Concentration - - Weight 65.8 kg (145 lb) 02/04/2025 10:32 AM CDT Height 160 cm (5' 3) 02/04/2025 10:32 AM CDT Body Mass Index 25.69 02/04/2025 10:32 AM CDT Plan of Treatment Health Maintenance Due Date Last Done Comments Albumin Creatinine Ratio, Urine 1955 Breast Cancer Screening-Mammogram 1955 Depression Screening 1955 Hemoglobin A1C 1955 Osteoporosis Screening-Bone Density Scan 1955 Dilated Eye Exam 1955 Foot Exam 1955 Lipid Panel 1955 Well Visit 65+ 2021 Covid-19 Vaccine (6 2024-2 6 season) 2025 07/06/2022, 09/22/2021, 04/01/2021, Additional history exists Influenza Vaccine (#1) 2025 05/25/2022, 2020 eGFR 08/02/2025 08/02/2024, 11/27, 10/18/2023, Additional history exists Fall Risk Assessment 02/04/2026 02/04/2025 Colon Cancer Screening-Colonoscopy 09/02/20322022 DTaP/Tdap/Td Vaccine (2 - Td or Tdap) 09/18/2033 09/19/2023 Pneumococcal vaccine 65+ Completed 05/25/2022 Hepatitis C Screening Completed 08/12/2022 Zoster Vaccine Completed 09/27/2022, 07/06/2022 Procedures Procedure Name Priority Date/Time Associated Diagnosis Comments ESOPHAGOGASTRODUODENOSCOPY 02/04 11:33 AM CDT Esophageal varices without bleeding, unspecified esophageal varices type (HCC) EGD 02/04/2025 11:28 AM CDT POCT GLUCOSE DEVICE Routine 02/04/2025 10:43 AM CDT US ABDOMEN LIMITED Schedule Routine, Read Routine (OP Routine) 02/04/2025 10:06 AM CDT Cirrhosis of liver with ascites, unspecified hepatic cirrhosis type (HCC) EGFR Routine 08/02/2024 11:27 AM RECREATIONAL SPORTS DIRECTOR Cirrhosis of liver with ascites, unspecified hepatic cirrhosis type (HCC) COLONOSCOPY 09/02/2022 9:51 AM CDT HEPATITIS C ANTIBODY Routine 08/12/2022 10:00 AM CDT Cirrhosis of liver with ascites, unspecified hepatic cirrhosis type (HCC) from Last 3 Months or Most Recently Relevant to Health Maintenance Results * EGD (02/04/2025 11:28 AM CDT) Anatomical Region Laterality Modality Other Narrative Procedure Note Jac Olson MD - 02/04/2025 11:28 AM CDT [facility] Patient Name: Ammy Ramesh Procedure Date: 02/04/2025 11:28 AM Date of : 1955 Admit Type: Outpatient Age: 69 Gender: Female Attending MD: Jac Olson M.D., Room: [facility] ENDOSCOPY ROOM 2 Note Status: Finalized Procedure: Upper GI endoscopy Indications: Follow-up of esophageal varices; 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 Providers: Jac Olson M.D. Comorbidities See the other procedure note for documentation of comorbidities Medicines: Monitored Anesthesia Care Complications: No immediate complications. Estimated Blood Loss: Estimated blood loss: none. Procedure: Pre-Anesthesia Assessment: - Prior to the procedure, a History and Physicalwas performed, and patient medications, allergies and sensitivities were reviewed. The patient'stolerance of previous anesthesia was reviewed. - Immediately prior to administration ofmedications, the patient was re-assessed for adequacy to receive sedatives. The benefits, risks, and alternatives to theprocedure and sedation were discussed and informed consentwas obtained. The scope was passed under direct vision. The GIF [id number] endoscope was introducedthrough the mouth, and advanced to the second part of duodenum. The upper GI endoscopy was accomplished without difficulty. The patient tolerated the procedure well. Findings: Grade I varices were found in the lower third of the esophagus. The gastroesophageal junction was noted at 36 cm from the incisors. Mild portal hypertensive gastropathy was found in the gastric body. Nodular gastric antral vascular ectasia was present in the gastric antrum. The examined duodenum was normal. Impression: - Grade I esophageal varices. - Portal hypertensive gastropathy. - Gastric antral vascular ectasia. - Normal examined duodenum. Recommendation: - The patient will be observed post-procedure,until all discharge criteria are met. - Observe patient's clinical course. - Continue present medications. - Avoid ibuprofen, naproxen, or other non-steroidal anti-inflammatory drugs. - Resume previous diet. - Return to referring physician as previously scheduled. - Surveillance EGD per primary chiropractic physician. - In the unusual situation that you developabdominal, bleeding or other significant problems in the days following this procedure please call [phone] ask for my nurse, Julia Hagen. After hours and evenings please call [phone] and speak to theGI fellow news camera person. Please tell the fellow that Dr. Olson did your procedure and that you were instructed to have the fellow call me or thephysician covering for me to discuss the management of your condition. If you have an urgent problem, please goto the nearest emergency room and have the ER doctorcall my office during the day or [facility] transfer ([phone]) center after hours and weekends to arrange admission or transfer to our facility. Attending Participation: I personally performed the entire procedure. Electronically signed by Jac Olson MD Jac Olson M.D. 02/04/2025 11:50:21 AM . Number of Addenda: 0 Note Initiated On: 02/04/2025 11:28 AM Jac Olson MD ENDOSCOPY PROCEDURES Final Result * POCT glucose (02/04/2025 10:43 AM CDT) Glucose, POC 98 70 - 199 mg/dL Blood 02/04/2025 10:4 3 AM CDT 02/04/2025 10:43 AM CDT us Jac Olson MD LAB POCT ORDERABLES - DEVIC E Final Result [facility] [place] [address] * US Abdomen Limited (02/04/2025 10:06 AM CDT) Anatomical Region Laterality Modality Abdomen N/A Ultrasound 02/04/2025 10:3 7 AM CDT Impressions 02/04/2025 11:44 AM CDT 1. Cirrhotic liver morphology with unchanged splenomegaly. 2. US LI-RADS Screening/Surveillance Category: US 1 - Negative. 3. Visualization Score: A: No or minimal limitations in liver visualization. US LI-RADS 2023 REFERENCE: US Category: US-1 [...] modality depending on risk factors. Dictated by: Lan Hairston M.D. The radiology attending physician has personally reviewed this study, and had reviewed and/or edited this written report and agrees with it. Electronically signed by: Madelyn Mo M.D. Narrative 02/04/2025 11:44 AM CDT EXAMINATION: LIVER SONOGRAM HISTORY: 69-year-old female with cirrhosis. Surveillance ultrasound in patient at high risk for hepatocellular carcinoma. COMPARISON: Multiple prior ultrasounds most recently 08/02/2024, MRI 07/25/2023 FINDINGS: Liver: Visualization Score: A: No or minimal limitations in liver visualization. Morphology/Parenchyma/contour: The right hemiliver is atrophic with enlargement of the caudate lobe, similar to prior. The echotexture is coarse. The echogenicity is normal. There is surface nodularity. Liver observations: No focal liver observations. Ascites: Trace perihepatic free fluid. Redemonstration of splenomegaly measuring 17.5 cm. No intrahepatic biliary dilation. Common bile duct measures approximately 6 mm, decreased when compared to prior exam. Procedure Note Madelyn Mo MD - 02/04/2025 EXAMINATION: LIVER SONOGRAM HISTORY: 69-year-old female with cirrhosis. Surveillance ultrasound in patient at high risk for hepatocellular carcinoma. COMPARISON: Multiple prior ultrasounds most recently 08/02/2024, MRI 07/25/2023 FINDINGS: Liver: Visualization Score: A: No or minimal limitations in liver visualization. Morphology/Parenchyma/contour: The right hemiliver is atrophic with enlargement of the caudate lobe, similar to prior. The echotexture is coarse. The echogenicity is normal. There is surface nodularity. Liver observations: No focal liver observations. Ascites: Trace perihepatic free fluid. Redemonstration of splenomegaly measuring 17.5 cm. No intrahepatic biliary dilation. Common bile duct measures approximately 6 mm, decreased when compared to prior exam. IMPRESSION: 1. Cirrhotic liver morphology with unchanged splenomegaly. 2. US LI-RADS Screening/Surveillance Category: US 1 - Negative. 3. Visualization Score: A: No or minimal limitations in liver visualization. US LI-RADS 2023 REFERENCE: US Category: US-1 [...] modality depending on risk factors. Dictated by: Lan Hairston M.D. The radiology attending physician has personally reviewed this study, and had reviewed and/or edited this written report and agrees with it. Electronically signed by: Madelyn Mo M.D. us Mariangel Drake MD IMG US PROCEDURES Fi nal Result * eGFR (08/02/2024 11:27 AM RECREATIONAL SPORTS DIRECTOR) eGFR 61 >=60 mL/min/1. 73 m2 Comment: [...] Inclusion of Race in Diagnosing Kidney Disease, KEESHASMiesha 2020). The CKD-EPI equation should not be used for patients with unstable renal function and has not been validated in children and those over 70. Current interpretive data was last reviewed 2021. Blood 08/02/2024 11:2 7 AM RECREATIONAL SPORTS DIRECTOR 08/02/2024 12:30 PM RECREATIONAL SPORTS DIRECTOR us Mariangel Drake MD LAB BLOOD ORDERABLES Final Result Performing Organization Address City/State/[facility] [place] Phone Number [facility] Department [place] [address] * COLONOSCOPY (09/02/2022 9:51 AM CDT) Anatomical Region Laterality Modality Other Narrative Procedure Note Mayo Juarez MD - 09/02/2022 9:51 AM CDT [facility] Patient Name: Ammy Ramesh Procedure Date: 09/02/2022 9:51 AM Date of : 1955 Admit Type: Outpatient Age: 67 Gender: Female Attending MD: Mayo Juarez M.D. Room: [facility] ENDOSCOPY ROOM 3 Note Status: Finalized Procedure: Colonoscopy Indications: High risk colon cancer surveillance: Personalhistory of colonic polyps (per patient), Last colonoscopy 3 years ago Referring MD: Mariangel Drake M.D. Providers: Mayo Juarez M.D. Medicines: Monitored Anesthesia Care Complications: No immediate complications. Estimated Blood Loss: Minimal. Procedure: Pre-Anesthesia Assessment: - Monitored anesthesia care under the supervisionof a UI ARCHITECT was determined to be medically necessary forthis [...] The scope was passed under direct vision.The CF [id number] endoscope was introduced through the anus and [...] On: 09/02/2022 9:51 AM Recognized by the [employer] [employer] for promoting quality in endoscopy us Mayo Juarez MD ENDOSCOPY PROCEDURES Deisi l Result * Hepatitis C antibody (08/12/2022 10:00 AM CDT) Hep C Ab Nonreactive Nonreactive [facility] Comment:Antibodies to HCV no t detected. Does NOT exclude the possibility of recent exposure to HCV. Current interpretive data was last revised on 22 Blood 08/12/2022 10:0 0 AM CDT 08/12/2022 10:23 AM CDT us Mariangel Drake MD LAB MICROBIOLOGY - G ENERAL ORDERABLES Final Result [facility] [place] [address] from Last 3 Months or Most Recently Relevant to Health Maintenance Insurance [employer] Advance Directives For more information, please contact: [phone] * Full Code (Latest Code Status on File) Date Activated Date Inactivated Comments 02/04/2025 10:28 AM 02/04/2025 4:21 PM * Full Code Date Activated Date Inactivated Comments 10/18/2023 9:32 AM 10/18/2023 3:02 PM * Full Code Date Activated Date Inactivated Comments 09/02/2022 8:58 AM 09/02/2022 3:50 PM Care Teams Cabin Furnishings Installer Relationship Specialty Start Date End Date Curly Soto MD [address] [facility] [address] [address] PCP - General Family Practice 07/25/24
[2025-04-08 13:11] LABS: Alanine Aminotransferase 23 U/L (6-35); Albumin Level 3.9 g/dL (3.5-5.1); Alkaline Phosphatase 82 U/L (38-126); Anion Gap 7 mmol/L (4-12); Aspartate Amino Transferase 45 U/L (14-36); Bilirubin,Total 1.3 mg/dL (0.2-1.3); Blood Urea Nitrogen 14 mg/dL (7-17); Calcium 9.2 mg/dL (8.4-10.2); Carbon Dioxide 27 mmol/L (22-30); Chloride 102 mmol/L (98-107); Estimated Glomerular Filt Rate > 60; Glucose 109 mg/dL (65-110); Magnesium 1.3 mg/dL (1.6-2.3); Potassium 4.3 mmol/L (3.4-5.0); Sodium 136 mmol/L (137-145); Total Protein 6.4 g/dL (6.3-8.2)
== END 2025-04-08 10:14 | disposition home or self-care (01) ==
LOC: ANHGOSHLAB 10:14
PROVIDERS: PCP Family Medicine; Visit Provider Nurse Practitioner Family
DX: E83.42 Hypomagnesemia (principal); I10 Essential (primary) hypertension; E78.5 Hyperlipidemia, unspecified
CPT/HCPCS: 36415; 80053; 83735

== ENCOUNTER 2025-04-16 10:13 | Outpatient (CLI) | payer OTHER, SELFPAY ==
[2025-04-16 13:17] LABS: Magnesium 1.6 mg/dL (1.6-2.3)
== END 2025-04-16 10:14 | disposition home or self-care (01) ==
PROVIDERS: PCP Family Medicine; Visit Provider Nurse Practitioner Family
DX: E83.42 Hypomagnesemia (principal)
CPT/HCPCS: 36415; 83735